=== PATIENT | male | born 1985 | race Caucasian/White ===

== ENCOUNTER 2016-08-21 01:11 | Emergency (ER) | payer BC, MEDICAID ==
[2016-08-21] MEDS ORDERED: NS 0.9% 1000 ML* 1,000 ML IV ONE (01:19)
[2016-08-21 01:49] LABS: Hematocrit 45 % (42-52); Hemoglobin 14.8 g/dl (14.0-18.0); Mean Corpuscular HGB Conc 33 g/dl (31-36); Mean Corpuscular Hemoglobin 30 pg (27-31); Mean Corpuscular Volume 92 fL (80-94); Mean Platelet Volume 9 um3 (7.4-10.4); Red Cell Distribution Width 14 % (10.5-15)
[2016-08-21 02:01] LABS: Albumin 4.2 g/dL (3.2-5.2); BUN/Creatinine Ratio 16.5 (8-20); Calcium 9.6 mg/dL (8.6-10.3); EGFR African American 137.1 (>60); EGFR Non-African American 106.6 (>60); Globulin 2.7 g/dL (2-4); Potassium 4.1 mmol/L (3.5-5.0); Total Bilirubin 0.2 mg/dL (0.2-1.0); Total Protein 6.9 g/dL (6.4-8.9)
[2016-08-21 02:10] LABS: Urine Bacteria 2+ (Absent); Urine Bilirubin Negative (Negative); Urine Glucose Negative (Negative); Urine Nitrite Positive (Negative)
[2016-08-21] MEDS ORDERED: cefTRIAXone VIAL(*) 1,000 MG in NS 0.9% 50 ML* 50 ML IVPB ONE (02:30)
--- NOTE | 2016-08-21 02:56 | ED ---
I, Rick,Jill, scribed for Vesta Canchola MD on 08/21/16 at 0126 . Neurological HPI - HPI Summary HPI Summary: LEVEL 5 CAVEAT secondary to MRJaz This 31 y/o male presents to ED from [facility] for acute on recurrent seizure tonight. This grand mal seizure was witnessed by staffs at snf. PMHx does include known seizure that is controlled by Keppra with the last episode a year ago. Pt appears to be at his baseline at time of initial evaluation. Other PMHx includes cerebral palsy, fundoplication, and neurogenic bladder with frequent UTIs. Mother present at bedside reports UTI last fall, and possible issues with current cath recently. - History of Current Complaint Stated Complaint: SEIZURE Time Seen by Provider: 08/21/16 01:12 Hx Obtained From: Family/Weld Engineer - mother present at bedside, EMS, Medical Records Hx From Patient Unobtainable Due To: Other - MR Onset/Duration: Sudden Onset, Resolved Timing: Intermittent Episodes Lasting: Onset Severity: Moderate Current Severity: None Seizure Severity: Self Limited Seizure Character: Total-Clonic Aggravating: Nothing Alleviating: Spontanious Resolution - Allergy/Home Medications Allergies/Adverse Reactions: Allergies Allergy/AdvReac Type Severity Reaction Status Date / Time Ciprofloxacin [From Cipro] Allergy ANAPHYLACTI Verified 08/21/16 02:28 C Clindamycin Allergy BODY RASH Verified 08/21/16 02:28 Sulfamethoxazole Allergy Rash And Verified 08/21/16 02:28 w/Trimethoprim Itching [From Bactrim] ENVIRONMENTAL/SEASONAL Allergy Unknown Uncoded 08/21/16 02:28 HAYFEVER Reaction Details PMH/Surg Hx/FS Hx/Imm Hx Endocrine/Hematology History: Denies: Hx Diabetes, Hx Thyroid Disease Cardiovascular History: Denies: Hx Congestive Heart Failure, Hx Hypertension Respiratory History: Reports: Hx Sleep Apnea - possible Denies: Hx Asthma, Hx Chronic Obstructive Pulmonary Disease (COPD) Comment Only: Other Respiratory Problems/Disorders - G-BUTTON FOR MEDICATIONS GI History: Reports: Hx Gastroesophageal Reflux Disease - gastric fundiplication at age 10 Denies: Hx Ulcer History: Reports: Other Problems/Disorders - frequent UTIs, neurogenic bladder Denies: Hx Renal Disease Sensory History: Denies: Hx Hearing Aid Neurological History: Reports: Hx Seizures - history of control with medication , Other Neuro Impairments/Disorders - NON-VERBAL, CP - Surgical History Surgery Procedure, Year, and Place: GASTROPLASTY AT AGE 10, [facility], ENT surgery Hx Anesthesia Reactions: Yes - PROBLEMS WITH POST OP PAIN AFTER TONSILLECTOMY AND FUNDIPLICATION Infectious Disease History: Denies: Hx Clostridium Difficile, Hx Hepatitis, Hx Human Immunodeficiency Virus (HIV), Hx of Known/Suspected MRSA, Hx Shingles, Hx Tuberculosis - Family History Known Family History: Positive: Unknown Family History: LEVEL 5 CAVEAT secondary to MRJaz - Social History Lives: Retirement Alcohol Use: None Hx Substance Use: No Substance Use Type: Reports: None Hx Tobacco Use: No Smoking Status (MU): Never Smoked Tobacco Review of Systems - ROS Summary Review of Systems Summary: LEVEL 5 CAVEAT secondary to Negative: Fever Negative: Anxious, Depressed All Other Systems Reviewed And Are Negative: No Physical Exam Triage Information Reviewed: Yes Vital Signs On Initial Exam: Initial Vitals Temp Pulse Resp BP Pulse Ox 98.9 F 81 16 132/82 95 08/21/16 01:15 08/21/16 01:15 08/21/16 01:15 08/21/16 01:15 08/21/16 01:15 Vital Signs Reviewed: Yes Appearance: Positive: Well-Appearing - Nontoxic looking, No Pain Distress Skin: Positive: Warm, Dry Head/Face: Positive: Normal Head/Face Inspection Eyes: Positive: FROY, Conjunctiva Clear Cardiovascular: Positive: RRR, Pulses are Symmetrical in both Upper and Lower Extremities Abdomen Description: Positive: Other: - G-tube in place Musculoskeletal: Positive: Strength/ROM Intact Neurological: Positive: Sensory/Motor Intact Psychiatric: Positive: Affect/Mood Appropriate AVPU Assessment: Alert Diagnostics - Vital Signs Vital Signs Temp Pulse Resp BP Pulse Ox 08/21/16 02:30 66 113/67 98 08/21/16 02:00 68 114/71 94 08/21/16 01:30 80 125/65 91 08/21/16 01:24 81 93 08/21/16 01:23 124/72 08/21/16 01:15 98.9 F 81 16 132/82 95 - Laboratory Lab Results: Lab Results 08/21/16 08/21/16 08/21/16 Range/Units 01:25 01:25 01:55 WBC 4.0 (3.5-10.8) 10^3/ul RBC 4.90 (4.0-5.4) 10^6/ul Hgb 14.8 (14.0-18.0) g/dl Hct 45 (42-52) % MCV 92 (80-94) fL MCH 30 (27-31) pg MCHC 33 (31-36) g/dl RDW 14 (10.5-15) % Plt Count 154 (150-450) 10^3/ul MPV 9 (7.4-10.4) um3 Neut % (Auto) 49.7 (38-83) % Lymph % (Auto) 39.4 (25-47) % [place] % (Auto) 8.1 (1-9) % Eos % (Auto) 2.7 (0-6) % Baso % (Auto) 0.1 (0-2) % Absolute Neuts (auto) 2.0 (1.5-7.7) 10^3/ul Absolute Lymphs (auto) 1.6 (1.0-4.8) 10^3/ul Absolute Monos (auto) 0.3 (0-0.8) 10^3/ul Absolute Eos (auto) 0.1 (0-0.6) 10^3/ul Absolute Basos (auto) 0 (0-0.2) 10^3/ul Absolute Nucleated RBC 0 10^3/ul Nucleated RBC % 0.1 Sodium 139 (133-145) mmol/L Potassium 4.1 (3.5-5.0) mmol/L Chloride 103 (101-111) mmol/L Carbon Dioxide 33 H (22-32) mmol/L Anion Gap 3 (2-11) mmol/L BUN 14 (6-24) mg/dL Creatinine 0.85 (0.67-1.17) mg/dL Est GFR ( Amer) 137.1 (>60) Est GFR (Non-Af Amer) 106.6 (>60) BUN/Creatinine Ratio 16.5 (8-20) Glucose 93 (70-100) mg/dL Calcium 9.6 (8.6-10.3) mg/dL Total Bilirubin 0.20 (0.2-1.0) mg/dL AST 18 (13-39) U/L ALT 22 (7-52) U/L Alkaline Phosphatase 70 (34-104) U/L Total Protein 6.9 (6.4-8.9) g/dL Albumin 4.2 (3.2-5.2) g/dL Globulin 2.7 (2-4) g/dL Albumin/Globulin Ratio 1.6 (1-3) Urine Color Yellow Urine Appearance Cloudy Urine pH 6.0 (5-9) Ur Specific [place] 1.020 (1.010-1.030) Urine Protein Negative (Negative) Urine Ketones Negative (Negative) Urine Blood Negative (Negative) Urine Nitrate Positive H (Negative) Urine Bilirubin Negative (Negative) Urine Urobilinogen Negative (Negative) Ur Leukocyte Esterase 3+ H (Negative) Urine WBC (Auto) 3+(>20/hpf) H (Absent) Urine RBC (Auto) Trace(0-2/hpf) (Absent) Urine Bacteria 2+ H (Absent) Urine Glucose Negative (Negative) Urine Ascorbic Acid * H (Negative) Result Diagrams: 08/21/16 01:25 08/21/16 01:25 Lab Statement: Any lab studies that have been ordered have been reviewed, and results considered in the medical decision making process. - Radiology CXR Radiology Interpretation Completed By: ED Physician - See EMR for reading Course/Dx - Course Assessment/Plan: This 31 y/o male presents to ED for one episode of witnessed grand mal seizure at snf. PMHx is significant for known seizure, but last episode was 1 year ago. Seizure has been well controlled with Keppra since then. PMHx also includes recurrent UTI with neurogenic bladder and cerebral palsy. Pt appears nontoxic at the time of initial evaluation. Bloodwork is wnl. UA indicates UTI with 3+ RBC, leuk, and 2+ bacteria. Pt's last urine micro was ecoli sensitive to ceftriaxone but not to ancef, ampicillin but to macrobid. Pt's mother is requesting a twice daily regimen at home so he will receive one dose of ceftriaxone here and macrobid at the pharmacy - Diagnoses Provider Diagnoses: Seizure, UTI (urinary tract infection) Discharge - Discharge Plan Condition: Stable Disposition: HOME Prescriptions: Nitrofurantoin Monohyd Macro [Macrobid] 100 mg PO BID #14 cap Patient Education Materials: Recurrent Seizures in Adults (ED) Referrals: Sal Nation MD [Primary Care Provider] - 2 Days The documentation as recorded by the scribe, Oh,Soohyun accurately reflects the service I personally performed and the decisions made by me, Vesta Canchola MD.
[2016-08-21] MEDS ORDERED: Nitrofurantoin Macrocrystals* 100 MG CAP PO ONE (03:11)
[2016-08-21 03:24] VITALS: BP 108/60
--- NOTE | 2016-08-21 07:43 | RAD ---
INDICATION: Seizure COMPARISON: Most recent comparison chest x-ray is dated May 06, 2016 TECHNIQUE: Single AP portable view of the chest was obtained. FINDINGS: Image quality is compromised due to the relative inferiority of a portable chest x-ray. The heart and mediastinum exhibit normal size and contour. The lungs are grossly clear. There is no evidence of a large pleural effusion. There are multiple loops of dilated air-filled small bowel beneath the diaphragm measuring up to 4 cm in diameter. This is similar but wraps slightly worse when compared to the most recent chest x-ray. IMPRESSION: 1. No radiographic evidence for acute cardiopulmonary abnormality on this portable chest x-ray. 2. Dilated loops of air-filled small bowel up to 4 cm in diameter.
--- NOTE | 2016-08-23 07:26 | ED ---
Progress - Progress Note Progress Note: Pt's urine cx reveals e. coli UTI - pt was d/c'd on nitrofurantoin which is appropriate - sens pending - no change in medication unless sens proves otherwise Course/Dx - Diagnoses Provider Diagnoses: Seizure, UTI (urinary tract infection)
--- NOTE | 2016-08-25 07:00 | PN ---
Progress Note - Progress Note Note: Urine grew E. coli. patient had been placed on Nitrofurantoin for 14 days. Med covers E. coli. Nothing further needed.
== END 2016-08-21 03:22 | disposition home or self-care (01) ==
LOC: ED 01:11
DX: N39.0 Urinary tract infection, site not specified (principal); R56.9 Unspecified convulsions
CPT/HCPCS: 36415; 71010; 80053; 80177; 81003; 81015; 85025; 87077; 87086; 87186; 99284; A9270-GY; J0696

== ENCOUNTER → 2016-12-22 02:35 | Emergency (ER) | payer BC, MEDICAID ==
[~2016-12-22 02:35] MED LIST: NS 0.9% 1000 ML* 1,000 ML IV ONE
[2016-12-22 03:10] LABS: Hematocrit 45 % (42-52); Hemoglobin 14.6 g/dl (14.0-18.0); Mean Corpuscular HGB Conc 33 g/dl (31-36); Mean Corpuscular Hemoglobin 30 pg (27-31); Mean Corpuscular Volume 92 fL (80-94); Mean Platelet Volume 9 um3 (7.4-10.4); Red Blood Count 4.87 10^6/ul (4.0-5.4); Red Cell Distribution Width 14 % (10.5-15); White Blood Count 4.7 10^3/ul (3.5-10.8)
[2016-12-22 03:26] LABS: BUN/Creatinine Ratio 18.1 (8-20); Calcium 9.2 mg/dL (8.6-10.3); EGFR African American 140.9 (>60); EGFR Non-African American 109.5 (>60); Globulin 2.7 g/dL (2-4); Magnesium 1.9 mg/dL (1.9-2.7); Total Bilirubin 0.3 mg/dL (0.2-1.0); Total Protein 6.7 g/dL (6.4-8.9)
[2016-12-22 04:43] LABS: Urine Bacteria Absent (Absent); Urine Bilirubin Negative (Negative); Urine Glucose Negative (Negative); Urine Nitrite Negative (Negative)
[2016-12-22 05:35] VITALS: BP 105/69
--- NOTE | 2016-12-22 05:39 | ED ---
Regla Espino Alok, scribed for Joe Granados MD on 12/22/16 at 0258 . Syncope/Near Syncope - HPI Summary HPI Summary: 31M presents to the ED following seizure-like episode. Pt was seizing for 7 to 10 minutes with body tremors and was not actively seizing when EMS arrived. Pt has h/o seizures and takes Keppra and Lamictal. Pt is non-verbal level 5 caveat. No tongue bites. Pt has a feeding tube. Pt uses a diaper. - History Of Current Complaint Chief Complaint: EDSeizure Time Seen by Provider: 12/22/16 02:47 Hx Obtained From: EMS Hx From Patient Unobtainable Due To: Other - MR Onset/Duration: Lasting Minutes, Resolved Timing: Minutes Context: Witnessed - Allergies/Home Medications Allergies/Adverse Reactions: Allergies Allergy/AdvReac Type Severity Reaction Status Date / Time Ciprofloxacin [From Cipro] Allergy ANAPHYLACTI Verified 08/21/16 02:28 C Clindamycin Allergy BODY RASH Verified 08/21/16 02:28 Sulfamethoxazole Allergy Rash And Verified 08/21/16 02:28 w/Trimethoprim Itching [From Bactrim] ENVIRONMENTAL/SEASONAL Allergy Unknown Uncoded 08/21/16 02:28 HAYFEVER Reaction Details PMH/Surg Hx/FS Hx/Imm Hx Endocrine/Hematology History: Denies: Hx Diabetes, Hx Thyroid Disease Cardiovascular History: Denies: Hx Congestive Heart Failure, Hx Hypertension Respiratory History: Reports: Hx Sleep Apnea - possible Denies: Hx Asthma, Hx Chronic Obstructive Pulmonary Disease (COPD) Comment Only: Other Respiratory Problems/Disorders - G-BUTTON FOR MEDICATIONS GI History: Reports: Hx Gastroesophageal Reflux Disease - gastric fundiplication at age 10 Denies: Hx Ulcer History: Reports: Other Problems/Disorders - frequent UTIs, neurogenic bladder Denies: Hx Renal Disease Sensory History: Denies: Hx Hearing Aid Neurological History: Reports: Hx Seizures - history of control with medication , Other Neuro Impairments/Disorders - NON-VERBAL, CP - Surgical History Surgery Procedure, Year, and Place: GASTROPLASTY AT AGE 10, [facility], ENT surgery Hx Anesthesia Reactions: Yes - PROBLEMS WITH POST OP PAIN AFTER TONSILLECTOMY AND FUNDIPLICATION Infectious Disease History: No Infectious Disease History: Denies: Hx Clostridium Difficile, Hx Hepatitis, Hx Human Immunodeficiency Virus (HIV), Hx of Known/Suspected MRSA, Hx Shingles, Hx Tuberculosis, Traveled Outside the [place] in Last 30 Days - Family History Known Family History: Positive: Unknown Family History: LEVEL 5 CAVEAT secondary to MR. - Social History Occupation: Disabled Alcohol Use: None Hx Substance Use: No Substance Use Type: Reports: None Hx Tobacco Use: No Smoking Status (MU): Never Smoked Tobacco Review of Systems - ROS Summary Review of Systems Summary: Level 5 caveat Negative: Nasal Discharge, Other - tongue bite Positive: Syncope All Other Systems Reviewed And Are Negative: No Physical Exam - Summary Physical Exam Summary: The skin is warm and dry and skin color reflects adequate perfusion. Good skin turgor. HEENT: The head is normocephalic and atraumatic. The pupils are equal and reactive. The conjunctivae are clear and without drainage. Nares are patent and without drainage. Mouth reveals moist mucous membranes and the throat is without erythema and exudate. Left ear distorted landmarks, ear drum markedly erythemic. Right TM normal with normal color.. No lip or tongue bite. No rhinorrhea. Neck is supple with full range of motion and non-tender. There are no carotid bruits. There is no neck vein distension. Respiratory: Chest is non-tender. Lungs are clear to auscultation and breath sounds are symmetrical and equal. Cardiovascular: Hear is regular rate and rhythm. There is no murmur or rub auscultated. There is no peripheral edema and pulses are symmetrical and equal. Abdomen: The abdomen is soft and non-tender. There are normal bowel sounds heard in all four quadrants and there is no organomegaly palpated. Feeding tube in place Musculoskeletal: Extremities are non-tender with full range of motion. There is good capillary refill. There is no peripheral edema or calf tenderness elicited. Neurologial: Patient is non-verbal and not oriented. Triage Information Reviewed: Yes Vital Signs On Initial Exam: Initial Vitals Temp Pulse Resp BP Pulse Ox 98.5 F 118 20 139/78 100 12/22/16 02:36 12/22/16 02:36 12/22/16 02:36 12/22/16 02:36 12/22/16 02:36 Vital Signs Reviewed: Yes Completion Of Physical Exam Limited Due To: Level 5 Diagnostics - Vital Signs Vital Signs Temp Pulse Resp BP Pulse Ox 12/22/16 02:36 98.5 F 118 20 139/78 100 - Laboratory Lab Results: Lab Results 12/22/16 12/22/16 12/22/16 Range/Units 03:01 03:01 03:01 WBC 4.7 (3.5-10.8) 10^3/ul RBC 4.87 (4.0-5.4) 10^6/ul Hgb 14.6 (14.0-18.0) g/dl Hct 45 (42-52) % MCV 92 (80-94) fL MCH 30 (27-31) pg MCHC 33 (31-36) g/dl RDW 14 (10.5-15) % Plt Count 154 (150-450) 10^3/ul MPV 9 (7.4-10.4) um3 Neut % (Auto) 52.7 (38-83) % Lymph % (Auto) 38.4 (25-47) % [place] % (Auto) 6.6 (1-9) % Eos % (Auto) 2.1 (0-6) % Baso % (Auto) 0.2 (0-2) % Absolute Neuts (auto) 2.5 (1.5-7.7) 10^3/ul Absolute Lymphs (auto) 1.8 (1.0-4.8) 10^3/ul Absolute Monos (auto) 0.3 (0-0.8) 10^3/ul Absolute Eos (auto) 0.1 (0-0.6) 10^3/ul Absolute Basos (auto) 0 (0-0.2) 10^3/ul Absolute Nucleated RBC 0 10^3/ul Nucleated RBC % 0.1 INR (Anticoag Therapy) 1.06 (0.89-1.11) Sodium 138 (133-145) mmol/L Potassium 4.0 (3.5-5.0) mmol/L Chloride 102 (101-111) mmol/L Carbon Dioxide 31 (22-32) mmol/L Anion Gap 5 (2-11) mmol/L BUN 15 (6-24) mg/dL Creatinine 0.83 (0.67-1.17) mg/dL Est GFR ( Amer) 140.9 (>60) Est GFR (Non-Af Amer) 109.5 (>60) BUN/Creatinine Ratio 18.1 (8-20) Glucose 85 (70-100) mg/dL Lactic Acid (0.5-2.0) mmol/L Calcium 9.2 (8.6-10.3) mg/dL Magnesium 1.9 (1.9-2.7) mg/dL Total Bilirubin 0.30 (0.2-1.0) mg/dL AST 30 (13-39) U/L ALT 45 (7-52) U/L Alkaline Phosphatase 82 (34-104) U/L Total Protein 6.7 (6.4-8.9) g/dL Albumin 4.0 (3.2-5.2) g/dL Globulin 2.7 (2-4) g/dL Albumin/Globulin Ratio 1.5 (1-3) Urine Color Urine Appearance Urine pH (5-9) Ur Specific [place] (1.010-1.030) Urine Protein (Negative) Urine Ketones (Negative) Urine Blood (Negative) Urine Nitrate (Negative) Urine Bilirubin (Negative) Urine Urobilinogen (Negative) Ur Leukocyte Esterase (Negative) Urine WBC (Auto) (Absent) Urine RBC (Auto) (Absent) Ur Squamous Epith Cells (Absent) Amorphous Crystals (Absent) Urine Bacteria (Absent) Urine Glucose (Negative) Urine Ascorbic Acid (Negative) 12/22/16 12/22/16 Range/Units 03:01 04:26 WBC (3.5-10.8) 10^3/ul RBC (4.0-5.4) 10^6/ul Hgb (14.0-18.0) g/dl Hct (42-52) % MCV (80-94) fL MCH (27-31) pg MCHC (31-36) g/dl RDW (10.5-15) % Plt Count (150-450) 10^3/ul MPV (7.4-10.4) um3 Neut % (Auto) (38-83) % Lymph % (Auto) (25-47) % [place] % (Auto) (1-9) % Eos % (Auto) (0-6) % Baso % (Auto) (0-2) % Absolute Neuts (auto) (1.5-7.7) 10^3/ul Absolute Lymphs (auto) (1.0-4.8) 10^3/ul Absolute Monos (auto) (0-0.8) 10^3/ul Absolute Eos (auto) (0-0.6) 10^3/ul Absolute Basos (auto) (0-0.2) 10^3/ul Absolute Nucleated RBC 10^3/ul Nucleated RBC % INR (Anticoag Therapy) (0.89-1.11) Sodium (133-145) mmol/L Potassium (3.5-5.0) mmol/L Chloride (101-111) mmol/L Carbon Dioxide (22-32) mmol/L Anion Gap (2-11) mmol/L BUN (6-24) mg/dL Creatinine (0.67-1.17) mg/dL Est GFR ( Amer) (>60) Est GFR (Non-Af Amer) (>60) BUN/Creatinine Ratio (8-20) Glucose (70-100) mg/dL Lactic Acid 1.4 (0.5-2.0) mmol/L Calcium (8.6-10.3) mg/dL Magnesium (1.9-2.7) mg/dL Total Bilirubin (0.2-1.0) mg/dL AST (13-39) U/L ALT (7-52) U/L Alkaline Phosphatase (34-104) U/L Total Protein (6.4-8.9) g/dL Albumin (3.2-5.2) g/dL Globulin (2-4) g/dL Albumin/Globulin Ratio (1-3) Urine Color Yellow Urine Appearance Cloudy Urine pH 7.0 (5-9) Ur Specific [place] 1.018 (1.010-1.030) Urine Protein Negative (Negative) Urine Ketones Negative (Negative) Urine Blood Negative (Negative) Urine Nitrate Negative (Negative) Urine Bilirubin Negative (Negative) Urine Urobilinogen Negative (Negative) Ur Leukocyte Esterase Trace H (Negative) Urine WBC (Auto) 1+(6-10/hpf) H (Absent) Urine RBC (Auto) Trace(0-2/hpf) (Absent) Ur Squamous Epith Cells Present H (Absent) Amorphous Crystals Present H (Absent) Urine Bacteria Absent (Absent) Urine Glucose Negative (Negative) Urine Ascorbic Acid * H (Negative) Result Diagrams: 12/22/16 03:01 12/22/16 03:01 Lab Statement: Any lab studies that have been ordered have been reviewed, and results considered in the medical decision making process. Re-Evaluation - Re-Evaluation First Eval Re-Evaluation Time: 04:54 Change: Improved Comment: left ear TM no longer red. right ear TM unable to visualize due to ear wax. Course/Dx Course Of Treatment: Pt presented for seizure event with h/o seizure disorder. Will discharge home with FU to PCP and neurology. - Diagnoses Differential Diagnosis/HQI/PQRI: Positive: Metabolic Reaction, Seizure, Other - uti, otitis media Provider Diagnoses: Seizure disorder Discharge - Discharge Plan Condition: Stable Disposition: HOME Patient Education Materials: Recurrent Seizures in Adults (ED) Referrals: Sal Nation MD [Primary Care Provider] - Faustina Sloan MD [Medical Doctor] - Additional Instructions: Please follow up with doctors Nathalia and Rios The documentation as recorded by the Regla vickers Alok accurately reflects the service I personally performed and the decisions made by me, Joe Granados MD.
[2016-12-24 13:42] LABS: Lamotrigine 2.6 mcg/mL (2.5 - 15.0)
[2016-12-24 16:03] LABS: Levetiracetam 38.3 mcg/mL
== END | disposition home or self-care (01) ==
LOC: ED 02:35
DX: G40.909 Epilepsy, unspecified, not intractable, without status epilepticus (principal); R55 Syncope and collapse
CPT/HCPCS: 36415; 80053; 80175; 80177; 81003; 81015; 83605; 83735; 85025; 85610; 87086; 99283

== ENCOUNTER 2016-12-22 22:48 | Observation (INO) | payer BC, MEDICAID ==
[2016-12-22] MEDS ORDERED: Acetaminophen TAB* 325 MG ONE (23:33)
[2016-12-22 23:35] LABS: Hematocrit 41 % (42-52); Hemoglobin 13.6 g/dl (14.0-18.0); Mean Corpuscular HGB Conc 34 g/dl (31-36); Mean Corpuscular Hemoglobin 30 pg (27-31); Mean Corpuscular Volume 90 fL (80-94); Mean Platelet Volume 9 um3 (7.4-10.4); Red Blood Count 4.48 10^6/ul (4.0-5.4); Red Cell Distribution Width 15 % (10.5-15); White Blood Count 8.7 10^3/ul (3.5-10.8)
[2016-12-22 23:53] LABS: Albumin 3.9 g/dL (3.2-5.2); Calcium 9.2 mg/dL (8.6-10.3); EGFR African American 153.6 (>60); EGFR Non-African American 119.4 (>60); Globulin 2.8 g/dL (2-4); Potassium 3.5 mmol/L (3.5-5.0); Total Bilirubin 0.4 mg/dL (0.2-1.0); Total Protein 6.7 g/dL (6.4-8.9)
[2016-12-23] MEDS: NS 0.9% 1000 ML* 3,000 ML IV ONE ×2 (00:26→02:33)
[2016-12-23 01:09] LABS: Urine Bacteria Absent (Absent); Urine Bilirubin Negative (Negative); Urine Glucose Negative (Negative); Urine Nitrite Negative (Negative)
[2016-12-23] MEDS ORDERED: Acetaminophen TAB* 325 MG PO PRN (01:50)
[2016-12-23] MEDS ORDERED: Ondansetron INJ* 2 MG/ML VIAL IV PRN (01:50)
--- NOTE | 2016-12-23 01:52 | HP ---
H&P (Free Text) History and Physical: PCP: Temo Nation MD Date/Time of Evaluation: 12/23/2016 0105 CC: seizure exacerbation HPI: Mr Diaz is a 31YO male [place] resident HX cerebral palsy & seizure disorders whose seizures have been increasing in frequency over the past 5 months. Prior to Aug 2016 he had been seizure free for ~2 years, but had 1 in Aug, 2 in September, and now 2 within the last 24H associated with fever, cyanosis, & hypoxia. His appetite has been decreased for the past couple of days as well per his [place] aide. He was seen at [facility] ED last night for that seizure, but was afebrile w/ baseline labs and was discharged to return tonight with a seizure lasting ~20minutes. His temperature on arrival was 100.5F. Jasmin Minor MD neurology was consulted by ED via phone. Rodrigo Diaz MD oncology, Mr Diaz's father was present in the ED providing his history. Previously he has had recurrent UTIs determined to be 2nd neurogenic bladder with retention of up to 1L currently successfully managed by QID strait caths. As we will be giving him increased IVFs, we will bladder scan him frequently in addition to his routine straight caths. PMedHx cerebral palsy seizure disorder GERD Ambulatory Orders Nursing to reconcile. Acetaminophen 325 mg G TUBE Q4HR PRN 09/01/12 Adapalene 0.1 % TOPICAL BEDTIME PRN 09/01/12 Allergy Shots 1 INJ PRN 09/01/12 Ascorbic Acid [Vitamin C] 500 mg G TUBE QPM 09/01/12 Bisacodyl [Biscolax] 10 mg ID PRN 09/01/12 Clotrimazole 1% CREAM* [Clotrimazole 1%*] 1 applic TOPICAL PRN 09/01/12 Dapsone (Topical) [Aczone] 1 applic TOPICAL QAM 09/01/12 Dermatological Products, Misc. [New Skin] 1 applic TOPICAL PRN 09/01/12 Epinephrine [Epipen] 0.3 mg IJ PRN 09/01/12 Fexofenadine HCl 180 mg G TUBE QAM 09/01/12 Glycerin (Laxative) [Fleet Liquid Glycerin Sup] 5.6 gm ID PRN 09/01/12 Hydrocortisone 1% CREAM* [Hytone (Topical) 1%*] 1 applic TOPICAL PRN 09/01/12 Ibuprofen PED LIQ* [Motrin LIQ*] 20 ml G TUBE Q6HR PRN 09/01/12 Lamotrigine 100 mg G TUBE QPM 09/01/12 Levetiracetam 1,500 mg G TUBE BID 09/01/12 Montelukast Sodium 10 mg G TUBE DAILY 09/01/12 Multiple Vitamins W/ Minerals [Centrum] 1 tab G TUBE QAM 09/01/12 Neomycin-Bacitracin Zn-Polymyx [Triple Antibiotic] 1 oin TOPICAL PRN 09/01/12 Nystatin OINT* [Nystatin Oint] 1 applic TOPICAL PRN 09/01/12 Polyethylene Glycol 3350 1 pow G TUBE QAM 09/01/12 Ranitidine LIQ 10 ML(NF) [Zantac Liq*] 10 ml G TUBE DAILY 09/01/12 Sodium Phosphates [Enema Dobty-Uf-Ixm] 1 raudel ID PRN 09/01/12 Erythromycin (Acne Aid) [Erythromycin] 2 % EX DAILY 07/15/13 Alfuzosin ER (NF) [Uroxatral (NF)] 10/16/14 Alfuzosin ER (NF) [Uroxatral (NF)] 10 mg PO DAILY 10/16/14 Mouthwashes [Biotene Dry Mouth Mouthwa] 1 liq MT 10/16/14 Xpnlsont-Rhxgfvrzjk-Qbjesnrte [Triple Antibiotic] 10/16/14 Phenazopyridine HCl [Pyridium] 200 mg PO Q8HR 10/16/14 Tobramycin/Dexameth OPTH.SUSP* 5 drop RIGHT EAR BID PRN 10/16/14 Ampicillin SUSP* [Ampicillin Susp*] 250 mg PO QID #140 ml 05/06/16 Ampicillin SUSP* [Ampicillin Susp*] 250 mg PO QID #7 gm 05/06/16 Nitrofurantoin Monohyd Macro [Macrobid] 100 mg PO BID #14 cap 08/21/16 Allergies Ciprofloxacin [From Cipro] Allergy (Verified 08/21/16 02:28) ANAPHYLACTIC Clindamycin Allergy (Verified 08/21/16 02:28) BODY RASH Sulfamethoxazole w/Trimethoprim [From Bactrim] Allergy (Verified 08/21/16 02:28) Rash And Itching ENVIRONMENTAL/SEASONAL HAYFEVER Allergy (Uncoded 08/21/16 02:28) Unknown Reaction Details DUST, DUST MITES, POLLEN, MOLDS PSurgHx tympanostomy tubes tonsillectomy Hay fundoplication PEG placement for meds & supplementation SocHx: no tobacco, alcohol, or recreational drug HX; resides at the [facility]; Orthodoxy, mechanical soft kosher diet; family involved & supportive; full code status FamHx: negative ROS: as above, otherwise reviewed and all were negative Constitutional: NAD, normally developed, well-nourished white male vitals: Vital Signs Temp 38.0 C 12/22/16 22:54 Pulse 73 12/23/16 00:35 Resp 13 12/23/16 00:35 BP 110/64 12/23/16 00:35 Pulse Ox 97 12/23/16 00:50 Intake & Output 12/22/16 12/22/16 12/23/16 11:59 23:59 11:59 Weight 72.121 kg HEENM: atraumatic; sclera/conjunctiva: non-icteric/clear; hearing: unable to adequately assess; oropharynx: prominent protuberant glossus, mucosa moist Neck: soft tissue: no nuchal rigidity; thyroid: normal Pulmonary: clear to auscultation bilaterally, good aeration, no accessory muscle use CV: RR/RR, normal S1S2, no carotid bruit, no jugular venous distention, 2+ B DP/ PT, no edema Abdominal: soft, non-distended, non-tender, no rebound/guarding/rigidity, normoactive bowel sounds, no hepatosplenomegaly or masses, no costovertebral angle tenderness Musculoskeletal: general: grossly intact; gait: non-ambulatory at baseline Integumental: normal appearance and texture of exposed skin Psychiatric orientation: AA & disoriented affect: calm mood: cooperative eye contact: poor content: non-verbal responses: unable to make needs known insight: poor Testing: Lab Results 12/22/16 12/22/16 12/22/16 Range/Units 23:25 23:25 23:25 WBC 8.7 (3.5-10.8) 10^3/ul RBC 4.48 (4.0-5.4) 10^6/ul Hgb 13.6 L (14.0-18.0) g/dl Hct 41 L (42-52) % MCV 90 (80-94) fL MCH 30 (27-31) pg MCHC 34 (31-36) g/dl RDW 15 (10.5-15) % Plt Count 155 (150-450) 10^3/ul MPV 9 (7.4-10.4) um3 Neut % (Auto) 78.2 (38-83) % Lymph % (Auto) 15.3 L (25-47) % [place] % (Auto) 6.3 (1-9) % Eos % (Auto) 0.1 (0-6) % Baso % (Auto) 0.1 (0-2) % Absolute Neuts (auto) 6.8 (1.5-7.7) 10^3/ul Absolute Lymphs (auto) 1.3 (1.0-4.8) 10^3/ul Absolute Monos (auto) 0.6 (0-0.8) 10^3/ul Absolute Eos (auto) 0 (0-0.6) 10^3/ul Absolute Basos (auto) 0 (0-0.2) 10^3/ul Absolute Nucleated RBC 0 10^3/ul Nucleated RBC % 0 INR (Anticoag Therapy) 1.14 H (0.89-1.11) APTT 32.3 (26.0-36.3) seconds Sodium 136 (133-145) mmol/L Potassium 3.5 (3.5-5.0) mmol/L Chloride 101 (101-111) mmol/L Carbon Dioxide 30 (22-32) mmol/L Anion Gap 5 (2-11) mmol/L BUN 10 (6-24) mg/dL Creatinine 0.77 (0.67-1.17) mg/dL Est GFR ( Amer) 153.6 (>60) Est GFR (Non-Af Amer) 119.4 (>60) BUN/Creatinine Ratio 13.0 (8-20) Glucose 117 H (70-100) mg/dL Lactic Acid (0.5-2.0) mmol/L Calcium 9.2 (8.6-10.3) mg/dL Total Bilirubin 0.40 (0.2-1.0) mg/dL AST 29 (13-39) U/L ALT 42 (7-52) U/L Alkaline Phosphatase 80 (34-104) U/L Total Protein 6.7 (6.4-8.9) g/dL Albumin 3.9 (3.2-5.2) g/dL Globulin 2.8 (2-4) g/dL Albumin/Globulin Ratio 1.4 (1-3) Urine Color Urine Appearance Urine pH (5-9) Ur Specific [place] (1.010-1.030) Urine Protein (Negative) Urine Ketones (Negative) Urine Blood (Negative) Urine Nitrate (Negative) Urine Bilirubin (Negative) Urine Urobilinogen (Negative) Ur Leukocyte Esterase (Negative) Urine WBC (Auto) (Absent) Urine RBC (Auto) (Absent) Ur Squamous Epith Cells (Absent) Urine Bacteria (Absent) Urine Glucose (Negative) Urine Ascorbic Acid (Negative) 12/22/16 12/23/16 Range/Units 23:25 00:45 WBC (3.5-10.8) 10^3/ul RBC (4.0-5.4) 10^6/ul Hgb (14.0-18.0) g/dl Hct (42-52) % MCV (80-94) fL MCH (27-31) pg MCHC (31-36) g/dl RDW (10.5-15) % Plt Count (150-450) 10^3/ul MPV (7.4-10.4) um3 Neut % (Auto) (38-83) % Lymph % (Auto) (25-47) % [place] % (Auto) (1-9) % Eos % (Auto) (0-6) % Baso % (Auto) (0-2) % Absolute Neuts (auto) (1.5-7.7) 10^3/ul Absolute Lymphs (auto) (1.0-4.8) 10^3/ul Absolute Monos (auto) (0-0.8) 10^3/ul Absolute Eos (auto) (0-0.6) 10^3/ul Absolute Basos (auto) (0-0.2) 10^3/ul Absolute Nucleated RBC 10^3/ul Nucleated RBC % INR (Anticoag Therapy) (0.89-1.11) APTT (26.0-36.3) seconds Sodium (133-145) mmol/L Potassium (3.5-5.0) mmol/L Chloride (101-111) mmol/L Carbon Dioxide (22-32) mmol/L Anion Gap (2-11) mmol/L BUN (6-24) mg/dL Creatinine (0.67-1.17) mg/dL Est GFR ( Amer) (>60) Est GFR (Non-Af Amer) (>60) BUN/Creatinine Ratio (8-20) Glucose (70-100) mg/dL Lactic Acid 1.8 (0.5-2.0) mmol/L Calcium (8.6-10.3) mg/dL Total Bilirubin (0.2-1.0) mg/dL AST (13-39) U/L ALT (7-52) U/L Alkaline Phosphatase (34-104) U/L Total Protein (6.4-8.9) g/dL Albumin (3.2-5.2) g/dL Globulin (2-4) g/dL Albumin/Globulin Ratio (1-3) Urine Color Yellow Urine Appearance Cloudy Urine pH 6.0 (5-9) Ur Specific [place] 1.010 (1.010-1.030) Urine Protein Negative (Negative) Urine Ketones Negative (Negative) Urine Blood Negative (Negative) Urine Nitrate Negative (Negative) Urine Bilirubin Negative (Negative) Urine Urobilinogen Negative (Negative) Ur Leukocyte Esterase 1+ H (Negative) Urine WBC (Auto) 1+(6-10/hpf) H (Absent) Urine RBC (Auto) Trace(0-2/hpf) (Absent) Ur Squamous Epith Cells Present H (Absent) Urine Bacteria Absent (Absent) Urine Glucose Negative (Negative) Urine Ascorbic Acid * H (Negative) ECG, personally reviewed: NSR rate 84, no ischemia CXR, personally reviewed: question of lingular/LLL infiltrate Impression: 31M HX cerebral palsy & seizure disorder presenting with 2 seizures w/i 24H now with a doubling of his WBC from 4k to 8k, fever of 100.5F, & ? of lingular infiltrate on CXR DIAGNOSIS & PLAN Primary exacerbation of seizure disorder likely 2nd infection : continue levetiracetam & lamotrigine : seizure precautions : Jasmin Minor MD neurology consulted by ED, will follow lingular pneumonia : IV ceftriaxone & azithromycin : IVFs : blood, sputum, & urine CXs : supplemental oxygen : check urine Legionella & S pneumo antigens : supportive care Secondary HX urinary retention w/ neurogenic bladder : QID straight caths & Q4H bladder scans while awake GERD : omeprazole Admission Rational: observation for seizure exacerbation suspected 2nd lingular pneumonia DVTp: JACLYN Code Status: full HCP: Father: Rodrigo Diaz MD c: [phone] h: [phone]
[2016-12-23] MEDS ORDERED: NS 0.9% 1000 ML* 1,000 ML IV SCH (02:00)
[2016-12-23] MEDS ORDERED: Azithromycin IV(*) 500 MG in NS 0.9% 250 ML* 250 ML IVPB SCH (03:00)
--- NOTE | 2016-12-23 03:57 | ED ---
Annel Espino Rebecca, scribed for Joe Granados MD on 12/22/16 at 2328 . Neurological HPI - HPI Summary HPI Summary: Pt is a 31 y/o M BIBA who presents to ED s/p a series of seizures tonight. Staff worker states that seizures began at approximately 2140 and lasted for about 22 minutes. Staff believes he experienced at least 6 grand mal seizures in the span of time. Sx aggravated by nothing, alleviated by spontaneous resolution. Additionally note fever. Denies cough. Staff worker notes that he did not eat much of his dinner and refused to drink. Pt did not receive any medications by EMS en route. PMHx UTIs and seizures. Staff reports he has been medication compliant. Level 5 caveat due to MR. - History of Current Complaint Chief Complaint: EDSeizure Stated Complaint: SEIZURES Time Seen by Provider: 12/22/16 23:01 Hx Obtained From: Family/Roller Staker Hx From Patient Unobtainable Due To: Other - MR Onset/Duration: Sudden Onset, Resolved Timing: Intermittent Episodes Lasting: Current Severity: None Number of Seizures: 6 Pain Intensity: 0 Pain Scale Used: 0-10 Numeric Seizure Character: Generalized - Grand mal Aggravating: Nothing Alleviating: Spontanious Resolution Associated Signs and Symptoms: Positive: Seizure - 6 grand mal seizures, Fever - Allergy/Home Medications Allergies/Adverse Reactions: Allergies Allergy/AdvReac Type Severity Reaction Status Date / Time Ciprofloxacin [From Cipro] Allergy ANAPHYLACTI Verified 08/21/16 02:28 C Clindamycin Allergy BODY RASH Verified 08/21/16 02:28 Sulfamethoxazole Allergy Rash And Verified 08/21/16 02:28 w/Trimethoprim Itching [From Bactrim] ENVIRONMENTAL/SEASONAL Allergy Unknown Uncoded 08/21/16 02:28 HAYFEVER Reaction Details Home Medications: Home Medications Aquaphor OINT* 1 apply TOPICAL BEDTIME 12/23/16 [History Confirmed 12/23/16] Benzoyl Peroxide [Benzoyl Peroxide Wash] 1 apply TOPICAL DAILY 12/23/16 [ History Confirmed 12/23/16] Clindamycin/Benzoyl Perox 1.2-5 % 1 apply TOPICAL DAILY 12/23/16 [History Confirmed 12/23/16] Dermatological Products, Misc. [New Skin] 1 apply TOPICAL BID PRN 12/23/16 [ History Confirmed 12/23/16] Multiple Vitamins W/ Minerals [Centrum Silver 50+Men] 1 tab G TUBE DAILY [History Confirmed 12/23/16] Nutritional Supplements [Resource 2.0] 1 can G TUBE DAILY 12/23/16 [History Confirmed 12/23/16] Sf 5000 Plus 1.1 % PO DAILY 12/23/16 [History Confirmed 12/23/16] Sodium Phosphate ADULT ENEMA* [Fleet Enema*] 1 bottle OR PRN 12/23/16 [History] PMH/Surg Hx/FS Hx/Imm Hx Endocrine/Hematology History: Denies: Hx Diabetes, Hx Thyroid Disease Cardiovascular History: Denies: Hx Congestive Heart Failure, Hx Hypertension Respiratory History: Reports: Hx Sleep Apnea - possible Denies: Hx Asthma, Hx Chronic Obstructive Pulmonary Disease (COPD) Comment Only: Other Respiratory Problems/Disorders - G-BUTTON FOR MEDICATIONS GI History: Reports: Hx Gastroesophageal Reflux Disease - gastric fundiplication at age 10 Denies: Hx Ulcer History: Reports: Other Problems/Disorders - frequent UTIs, neurogenic bladder Denies: Hx Renal Disease Sensory History: Denies: Hx Hearing Aid Neurological History: Reports: Hx Seizures - history of control with medication , Other Neuro Impairments/Disorders - NON-VERBAL, CP - Surgical History Surgery Procedure, Year, and Place: GASTROPLASTY AT AGE 10, [facility], ENT surgery Hx Anesthesia Reactions: Yes - PROBLEMS WITH POST OP PAIN AFTER TONSILLECTOMY AND FUNDIPLICATION Infectious Disease History: No Infectious Disease History: Denies: Hx Clostridium Difficile, Hx Hepatitis, Hx Human Immunodeficiency Virus (HIV), Hx of Known/Suspected MRSA, Hx Shingles, Hx Tuberculosis, Traveled Outside the [place] in Last 30 Days - Family History Known Family History: Positive: Unknown Family History: LEVEL 5 CAVEAT secondary to MR. - Social History Alcohol Use: None Hx Substance Use: No Substance Use Type: Reports: None Hx Tobacco Use: No Smoking Status (MU): Never Smoked Tobacco Review of Systems - ROS Summary Review of Systems Summary: Level 5 caveat due to MRJaz Positive: Fever Negative: Cough Neurological: Other - presents s/p 6 seizures All Other Systems Reviewed And Are Negative: No Physical Exam - Summary Physical Exam Summary: The patient is well-nourished in no acute distress and in no acute pain. The skin is flushed and warm to touch. No rashes observed. Decreased skin turgor. HEENT: The head is normocephalic and atraumatic. The pupils are equal and reactive. The conjunctivae are clear and without drainage. Nares are patent and without drainage. Mouth reveals dry mucous membranes and the throat is without erythema and exudate. The external ears are intact. The ear canals are patent and without drainage. The L Tmis normal, the R TM has some erythema. Respiratory: Chest is non-tender. Lungs are clear to auscultation and breath sounds are symmetrical and equal. Cardiovascular: Hear is tachycardic in regular rhythm. There is no murmur or rub auscultated. There is no peripheral edema and pulses are symmetrical and equal. Abdomen: The abdomen is soft and non-tender. Musculoskeletal: There is no back pain noted. Extremities are non-tender with full range of motion. There is good capillary refill of 2 seconds. Neurological: The patient has symmetrical motor strength in all four extremities. Cranial nerves are grossly intact. Psych: Pt is nonverbal and does not follow commands. s Triage Information Reviewed: Yes Vital Signs On Initial Exam: Initial Vitals Temp Pulse Resp BP Pulse Ox 100.4 F 108 16 94/56 96 12/22/16 22:54 12/22/16 22:54 12/22/16 22:54 12/22/16 22:54 12/22/16 22:54 Vital Signs Reviewed: Yes Diagnostics - Vital Signs Vital Signs Temp Pulse Resp BP Pulse Ox 12/22/16 22:54 100.4 F 108 16 94/56 96 - Laboratory Lab Results: Lab Results 12/22/16 12/22/16 12/22/16 Range/Units 23:25 23:25 23:25 WBC 8.7 (3.5-10.8) 10^3/ul RBC 4.48 (4.0-5.4) 10^6/ul Hgb 13.6 L (14.0-18.0) g/dl Hct 41 L (42-52) % MCV 90 (80-94) fL MCH 30 (27-31) pg MCHC 34 (31-36) g/dl RDW 15 (10.5-15) % Plt Count 155 (150-450) 10^3/ul MPV 9 (7.4-10.4) um3 Neut % (Auto) 78.2 (38-83) % Lymph % (Auto) 15.3 L (25-47) % [place] % (Auto) 6.3 (1-9) % Eos % (Auto) 0.1 (0-6) % Baso % (Auto) 0.1 (0-2) % Absolute Neuts (auto) 6.8 (1.5-7.7) 10^3/ul Absolute Lymphs (auto) 1.3 (1.0-4.8) 10^3/ul Absolute Monos (auto) 0.6 (0-0.8) 10^3/ul Absolute Eos (auto) 0 (0-0.6) 10^3/ul Absolute Basos (auto) 0 (0-0.2) 10^3/ul Absolute Nucleated RBC 0 10^3/ul Nucleated RBC % 0 INR (Anticoag Therapy) 1.14 H (0.89-1.11) APTT 32.3 (26.0-36.3) seconds Sodium 136 (133-145) mmol/L Potassium 3.5 (3.5-5.0) mmol/L Chloride 101 (101-111) mmol/L Carbon Dioxide 30 (22-32) mmol/L Anion Gap 5 (2-11) mmol/L BUN 10 (6-24) mg/dL Creatinine 0.77 (0.67-1.17) mg/dL Est GFR ( Amer) 153.6 (>60) Est GFR (Non-Af Amer) 119.4 (>60) BUN/Creatinine Ratio 13.0 (8-20) Glucose 117 H (70-100) mg/dL Lactic Acid (0.5-2.0) mmol/L Calcium 9.2 (8.6-10.3) mg/dL Total Bilirubin 0.40 (0.2-1.0) mg/dL AST 29 (13-39) U/L ALT 42 (7-52) U/L Alkaline Phosphatase 80 (34-104) U/L Total Protein 6.7 (6.4-8.9) g/dL Albumin 3.9 (3.2-5.2) g/dL Globulin 2.8 (2-4) g/dL Albumin/Globulin Ratio 1.4 (1-3) Urine Color Urine Appearance Urine pH (5-9) Ur Specific [place] (1.010-1.030) Urine Protein (Negative) Urine Ketones (Negative) Urine Blood (Negative) Urine Nitrate (Negative) Urine Bilirubin (Negative) Urine Urobilinogen (Negative) Ur Leukocyte Esterase (Negative) Urine WBC (Auto) (Absent) Urine RBC (Auto) (Absent) Ur Squamous Epith Cells (Absent) Urine Bacteria (Absent) Urine Glucose (Negative) Urine Ascorbic Acid (Negative) 12/22/16 12/23/16 Range/Units 23:25 00:45 WBC (3.5-10.8) 10^3/ul RBC (4.0-5.4) 10^6/ul Hgb (14.0-18.0) g/dl Hct (42-52) % MCV (80-94) fL MCH (27-31) pg MCHC (31-36) g/dl RDW (10.5-15) % Plt Count (150-450) 10^3/ul MPV (7.4-10.4) um3 Neut % (Auto) (38-83) % Lymph % (Auto) (25-47) % [place] % (Auto) (1-9) % Eos % (Auto) (0-6) % Baso % (Auto) (0-2) % Absolute Neuts (auto) (1.5-7.7) 10^3/ul Absolute Lymphs (auto) (1.0-4.8) 10^3/ul Absolute Monos (auto) (0-0.8) 10^3/ul Absolute Eos (auto) (0-0.6) 10^3/ul Absolute Basos (auto) (0-0.2) 10^3/ul Absolute Nucleated RBC 10^3/ul Nucleated RBC % INR (Anticoag Therapy) (0.89-1.11) APTT (26.0-36.3) seconds Sodium (133-145) mmol/L Potassium (3.5-5.0) mmol/L Chloride (101-111) mmol/L Carbon Dioxide (22-32) mmol/L Anion Gap (2-11) mmol/L BUN (6-24) mg/dL Creatinine (0.67-1.17) mg/dL Est GFR ( Amer) (>60) Est GFR (Non-Af Amer) (>60) BUN/Creatinine Ratio (8-20) Glucose (70-100) mg/dL Lactic Acid 1.8 (0.5-2.0) mmol/L Calcium (8.6-10.3) mg/dL Total Bilirubin (0.2-1.0) mg/dL AST (13-39) U/L ALT (7-52) U/L Alkaline Phosphatase (34-104) U/L Total Protein (6.4-8.9) g/dL Albumin (3.2-5.2) g/dL Globulin (2-4) g/dL Albumin/Globulin Ratio (1-3) Urine Color Yellow Urine Appearance Cloudy Urine pH 6.0 (5-9) Ur Specific [place] 1.010 (1.010-1.030) Urine Protein Negative (Negative) Urine Ketones Negative (Negative) Urine Blood Negative (Negative) Urine Nitrate Negative (Negative) Urine Bilirubin Negative (Negative) Urine Urobilinogen Negative (Negative) Ur Leukocyte Esterase 1+ H (Negative) Urine WBC (Auto) 1+(6-10/hpf) H (Absent) Urine RBC (Auto) Trace(0-2/hpf) (Absent) Ur Squamous Epith Cells Present H (Absent) Urine Bacteria Absent (Absent) Urine Glucose Negative (Negative) Urine Ascorbic Acid * H (Negative) Result Diagrams: 12/22/16 23:25 12/22/16 23:25 Lab Statement: Any lab studies that have been ordered have been reviewed, and results considered in the medical decision making process. - Radiology CXR Xray Interpretation: Positive (See Comments) - May be early left infiltrate. Radiology Interpretation Completed By: ED Physician - EKG 2344 Cardiac Rate: NL - 84 bpm : Tachycardia EKG Rhythm: Sinus Rhythm EKG Interpretation: Early repolarization, no STEMi, no tachycardia Course/Dx - Course Assessment/Plan: Pt is a 31 y/o M BIBA who presents to ED s/p a series of 6 grand mal seizures tonight that began at 2140 and lasted for 20 minutes. Additionally notes fever. Denies cough. Staff worker notes that he did not eat much of his dinner and refused to drinks PMHx UTIs and seizures. Staff reports he has been medication compliant. Level 5 caveat due to MR. CXR reveals possible early left infiltrate. EKG reveals early repolarization with no STEMI and no tachycardia. Discussed care of pt with Dr. Santiago, (hopsitalist), who accepts pt for admission. Pt will be admitted with Dx of fever and possible PNA. - Differential Dx Differential Diagnoses Neuro: Positive: Metabolic Abnormality, Viral Syndrome, Other - uti, pneumonia,otitis media - Diagnoses Provider Diagnoses: Fever, possible PNA - Physician Notifications Discussed Care Of Patient With: Reji Santiago Time Discussed With Above Provider: 01:17 Instructed by Provider To: Admit As Inpatient Discharge - Discharge Plan Condition: Stable Disposition: ADMITTED TO [facility] documentation as recorded by the Annel vickers Rebecca accurately reflects the service I personally performed and the decisions made by , Joe Granados MD.
[2016-12-23] MEDS ORDERED: cefTRIAXone VIAL(*) 1,000 MG in NS 0.9% 50 ML* 50 ML IVPB SCH ×2 (04:00→06:00)
[2016-12-23] MEDS ORDERED: Omeprazole CAP* 20 MG PO SCH (06:00)
[2016-12-23] MEDS ORDERED: ADAPALENE 0.1% TOPICAL PRN (07:43)
[2016-12-23] MEDS ORDERED: [UNRECOGNIZED DRUG - OTHER] TOPICAL PRN (07:43)
[2016-12-23] MEDS ORDERED: Acetaminophen ADULT LIQ* 650 MG/20.3 ML UDC G TUBE PRN (07:43)
[2016-12-23] MEDS ORDERED: Tobramycin/Dexameth OPTH.SUSP* 2.5 M L BTL PRN (07:43)
[2016-12-23] MEDS ORDERED: Phenazopyridine TAB* 100 MG PO PRN (07:43)
[2016-12-23] MEDS ORDERED: EPINEPHrine AMP 1 MG/ML IM PRN (07:43)
[2016-12-23] MEDS ORDERED: Nystatin OINT* 15 GM TOPICAL PRN (07:43)
[2016-12-23] MEDS ORDERED: Ibuprofen ADULT LIQ* 600 MG/30 ML UDC G TUBE PRN (07:43)
[2016-12-23] MEDS ORDERED: Bisacodyl SUPP* 10 MG SUPP PR PRN (07:43)
[2016-12-23] MEDS ORDERED: NEOMYCIN BOTH EYES SCH (09:00)
[2016-12-23] MEDS ORDERED: POLYMYXIN B BOTH EYES SCH (09:00)
[2016-12-23] MEDS ORDERED: Multivitamins ADULT w/MIN LIQ* 15 ML UDC G TUBE SCH (09:00)
[2016-12-23] MEDS ORDERED: Glycerin ADULT SUPP PR SCH (09:00)
[2016-12-23] MEDS ORDERED: Cetirizine* 10 MG TAB PO SCH (09:00)
[2016-12-23] MEDS ORDERED: Sodium Phosphate ADULT ENEMA* 118 ml bottle PR SCH (09:00)
[2016-12-23] MEDS ORDERED: NUTRITIONAL SUPPLEMENTS G TUBE SCH (09:00)
[2016-12-23] MEDS ORDERED: levETIRAcetam LIQ* 500 MG/5 ML UDC PEG TUBE SCH (09:00)
[2016-12-23] MEDS ORDERED: CLINDAMYCIN TOPICAL SCH (09:00)
[2016-12-23] MEDS ORDERED: BENZOYL PEROXIDE TOPICAL SCH ×2 (09:00)
[2016-12-23] MEDS ORDERED: Famotidine SUSP* 40 MG/5 ML ORAL.SUSP G TUBE SCH (09:00)
[2016-12-23] MEDS ORDERED: Clotrimazole 1% CREAM* 45 GM TOPICAL SCH (09:00)
[2016-12-23] MEDS ORDERED: ERYTHROMYCIN 2% TOPICAL SCH (09:00)
[2016-12-23] MEDS ORDERED: Docusate CAP* 100 MG PO SCH (09:00)
[2016-12-23] MEDS ORDERED: Alfuzosin ER (NF) 10 MG TAB.ER PO SCH (09:00)
[2016-12-23] MEDS ORDERED: Hydrocortisone 1% CREAM* 30 GM TUBE TOPICAL SCH (09:00)
[2016-12-23] MEDS ORDERED: Polyethylene Glycol 3350* 17 GM PACKET G TUBE SCH (09:00)
[2016-12-23] MEDS ORDERED: DAPSONE TOPICAL SCH (09:00)
[2016-12-23] MEDS ORDERED: [UNRECOGNIZED DRUG - OTHER] PO SCH (09:00)
[2016-12-23] MEDS ORDERED: BACITRACIN BOTH EYES SCH (09:00)
[2016-12-23] MEDS ORDERED: Montelukast Sodium TAB* 10 MG SCH (09:00)
--- NOTE | 2016-12-23 09:25 | RAD ---
Indication: Seizure disorder. Low O2 saturation. Fever. Comparison: August 21, 2016 Technique: Upright AP 2338 hours Report: Low lung volumes with associated crowding of the pulmonary markings and mild subsegmental atelectasis. Negative for pleural effusion or pneumothorax. The heart, pulmonary vasculature, and mediastinal contours are unremarkable. Negative for free air beneath the diaphragm. Unchanged LEFT convex curve at the thoracic lumbar junction. IMPRESSION: Low lung volumes with probable subsegmental atelectasis. A bronchopneumonia is not excluded. Correlate with clinical assessment and consider PA and lateral chest views if deemed appropriate.
[2016-12-23 09:55] LABS: Hematocrit 39 % (42-52); Hemoglobin 12.9 g/dl (14.0-18.0); Mean Corpuscular HGB Conc 33 g/dl (31-36); Mean Corpuscular Hemoglobin 30 pg (27-31); Mean Corpuscular Volume 92 fL (80-94); Mean Platelet Volume 9 um3 (7.4-10.4); Red Blood Count 4.29 10^6/ul (4.0-5.4); Red Cell Distribution Width 15 % (10.5-15); White Blood Count 5.6 10^3/ul (3.5-10.8)
--- NOTE | 2016-12-23 15:34 | PN ---
Hospitalist Progress Note . HOSPITALIST DISCHARGE NOTE: See dc instructions and summary by me. Patient stable for dc dc instructions prepared DC patient to [facility] today.
[2016-12-23 15:44] VITALS: BP 115/74
[2016-12-23] MEDS ORDERED: lamoTRIgine TAB(*) 100 MG G TUBE SCH (18:00)
[2016-12-23] MEDS ORDERED: Emollient Lotion 480 ML BTL TOPICAL SCH (21:00)
--- NOTE | 2016-12-23 22:08 | CONS ---
CC: Dr. Sloan * NEUROLOGY CONSULTATION: DATE OF CONSULT: 12/23/16 LOCATION: He is inpatient in room 348. REFERRING PHYSICIAN: Dr. Zarate. CHIEF COMPLAINT: Seizures. HISTORY OF PRESENT ILLNESS: Amaury Diaz is a 31-year-old developmentally disabled man with history of epilepsy, followed by Dr. Sloan. His father is Grey Emily, who provided additional history as well as review of the records as Amaury is nonverbal. Amaury presented to the emergency room yesterday with repetitive seizures. He has a long history of epilepsy, but had been seizure free for 2 years on his current regimen of Keppra and Lamictal. He had a seizure in August in the setting of urinary tract infection and again in September again in the setting of urinary tract infection. He was seizure free between September and yesterday. His seizures consist of generalized convulsions. He had a seizure the night before last; he was brought to the emergency room and was afebrile and seemed at his baseline. However, he had another seizure last night and had a temperature of 100.5 when he presented to the emergency room. He was admitted and given a dose of ceftriaxone, and urinalysis revealed 1+ leukocyte esterase and 1+ white blood cells. He has been maintained on Keppra 1500 mg twice per day per G-tube and lamotrigine 100 mg per day per G-tube for at least a year or so. His last levels that I see in the records were from 11/23/16 when lamotrigine was 2.9 and levetiracetam 25.8. He lives in an adult home and gets his medications reliably. MEDICATIONS: Consist of: 1. Keppra 1500 mg per G-tube b.i.d. 2. Lamotrigine 100 mg per G-tube q. day. 3. Multiple topicals. 4. Fexofenadine 100 mg per G-tube q.a.m. 5. Montelukast 10 mg per G-tube q. day. 6. Ranitidine 10 mL per G-tube q. day. 7. Macrobid 100 mg per G-tube b.i.d. ALLERGIES: He is allergic to CIPROFLOXACIN, CLINDAMYCIN, SULFA DRUGS with rashes, in the case of CIPROFLOXACIN anaphylaxis. REVIEW OF SYSTEMS: From his healthcare worker from [facility] as he is completely nonverbal, he does take food orally and as far as she knows does not have choking spells. PHYSICAL EXAM: He is well hydrated with scaphocephaly and macroglossia. He hold his legs in a somewhat frog leg configuration. His first temperature was 100.4 temporally, but since then he has been afebrile. Most recent blood pressure is 120/94, heart rate 70. The skin is warm and generally dry. Heart tones are normal. He is asleep initially and it takes a bit to rouse him, but does wake up when I start manipulating his limbs. He has irregular-shaped small pupils that react weakly to light. I can barely see a red reflex on either side. When awake, eyes are disconjugate. He moves his limbs to stimulation, but generally hold his arms flexed and his legs in abducted at the hips and flexed at the knees. I am not able to establish eye contact. He does not attempt to vocalize. IMPRESSION AND PLAN: Impression is that of break-through seizures in the setting of infection. He had done very well for 2 years on his current anticonvulsant regimen. His last anticonvulsant levels, I believe, were at the same dose of medicine that he is currently on and his lamotrigine level is fairly low. Given that transient fever seemed to be enough to trigger a seizure , I would recommend increasing lamotrigine. There is increase levetiracetam by level, but that is more likely to cause agitation and so I think the lamotrigine would make sense as a medicine to alter. I recommend increasing it from 100 mg per day to 150 mg in divided doses. I will speak with his father to discuss my recommendations as well as with Dr. Zarate. [id number]/[facility] #: [id number] MALLORY
--- NOTE | 2016-12-24 03:40 | DS ---
CC: Sal Nation MD ([facility]) * DISCHARGE SUMMARY: DATE OF ADMISSION: 12/23/16 DATE OF DISCHARGE: 12/23/16 PRIMARY CARE PROVIDER: Dr. Sal Nation. PRINCIPAL DISCHARGE DIAGNOSIS: Seizure exacerbation with left lingular pneumonia and doing better after several hours of observation and discharged in stable condition. SECONDARY DIAGNOSES: 1. Cerebral palsy. 2. Seizure disorder. 3. Gastroesophageal reflux disease. DISCHARGE MEDICATION REGIMEN: New medications: 1. Increased Lamictal dose to 150 mg by G-tube at night and 50 mg in the morning (was previously 100 mg daily). 2. Ceftin 500 mg by G-tube twice daily for 5 days then stop. 3. Azithromycin 250 mg by mouth daily for 5 days then stop. Continue all other medications as he was previously. These medications include: 1. Allergy shots 1 injection as needed. 2. Acetaminophen 325 mg G-tube q.4 hours p.r.n. pain/fever. 3. Adapalene 0.1% gel apply at bedtime. 4. Uroxatral 10 mg by G-tube daily. 5. Aquaphor apply topically to skin at bedtime. 6. Benzoyl peroxide wash applied topically daily. 7. Biscolax/bisacodyl suppository 10 mg NH as needed. 8. Clindamycin/benzoyl peroxide 1.2/5% strength applied topically daily. 9. Clotrimazole 1% cream applied topically daily - as previously. 10. Dapsone 5% gel applied topically every morning. 11. New-Skin/1% applied topically twice daily. 12. EpiPen administer as needed as per previous instruction. 13. Erythromycin Acne aid 2% gel apply daily as previously. 14. Fexofenadine 180 mg by G-tube every morning. 15. Fleet Liquid Glycerin Suppository 5.6 g strength NH daily as needed for constipation. 16. Hydrocortisone 1% cream applied topically at previous frequency. 17. Ibuprofen liquid formulation 100 mg per 5 mL - 20 mL by G-tube q.6 hours p.r.n. pain/fever. 18. Lamotrigine - as above (new dosing) 19. Keppra 1500 mg by G-tube twice daily. 20. Montelukast 10 mg by G-tube daily. 21. Multivitamin with minerals (Centrum Silver) 1 tab by G-tube daily. 22. Neomycin/bacitracin/zinc/polymyxin apply this triple antibiotic formulation topically as previously. 23. Liquid Resource 2.0 one can by G-tube daily. 24. Nystatin ointment 1 application topically 3 times daily. 25. Pyridium 200 mg by mouth q.8 hours p.r.n. 26. Polyethylene glycol 1 powder pack in suspension by G-tube in the morning. 27. Ranitidine 10 mL by G-tube daily (150 mg per 10 mL) 28. SF 5000 1.1% daily (shampoo?) 29. Sodium phosphate - Fleet Enema 1 bottle NH daily as needed for constipation. 30. Tobramycin/dexamethasone ophthalmic suspension 5 drops left ear twice daily. HISTORY OF PRESENT ILLNESS/HOSPITAL COURSE: Please see the H and P by Dr. Reji Santiago on 12/23/16. In brief, Mr. Diaz is a 31-year-old resident with a history of cerebral palsy and seizure disorders, who has been experiencing an increase in his seizure frequency over the past few months. The patient had come to [facility] the night prior to admission for ongoing seizure, but was afebrile with baseline labs and was discharged to home. He then returned with a seizure lasting approximately 20 minutes which is longer than the previous seizures. He had a low grade fever on presentation. The patient was admitted following a chest x-ray that showed a lingular infiltrate and there was some concern there was some increasing vulnerability secondary to this ongoing infection. The patient was started on IV ceftriaxone and azithromycin. The patient was continued on his initial doses of levetiracetam and lamotrigine. Dr. Terrance Minor of the neurology consult service evaluated the patient and recommended increasing the lamotrigine dose to 150 mg daily as detailed above. The patient was in excellent condition when I evaluated him later in the day on 12/23/16. He was interactive and the staff was complementary of his current status. The patient is being discharged with 5 days of antibiotics as above as well as his new dose of lamotrigine. Of course, if the patient has further difficulties, recurrent seizures, any respiratory distress, he can come back to the emergency room for repeat evaluation. Total time taken to discharge Mr. Diaz was 40 minutes. Greater than half time spent coordinating the care relating to the discharge. I did speak several times with Dr. Diaz, the patient's father, who is a [facility] physician. CONDITION AT DISCHARGE: Stable. [id number]/[facility] #: [id number] MALLORY
[2016-12-25 12:06] LABS: Levetiracetam 40.7 mcg/mL
== END 2016-12-23 16:20 ==
LOC: ED 22:48 → SSU 12-23 01:05
PROVIDERS: ADMIT Hospitalist; ATTEND Internal Medicine
DX: J18.9 Pneumonia, unspecified organism (principal); G80.9 Cerebral palsy, unspecified; G40.909 Epilepsy, unspecified, not intractable, without status epilepticus; K21.9 Gastro-esophageal reflux disease without esophagitis; Z93.1 Gastrostomy status; R56.9 Unspecified convulsions; R50.9 Fever, unspecified
CPT/HCPCS: 36415; 71010; 80053; 80175; 80177; 81003; 83605; 85025; 85610; 85730; 87040; 87077; 87086; 87186; 87899; 93005; 94760; 96360; 99283; A9270-GY; G0378; J0456; J0696

== ENCOUNTER 2017-06-12 23:23 | Emergency (ER) | payer BC, MEDICAID ==
[2017-06-12] MEDS ORDERED: NS 0.9% 1000 ML* 1,000 ML IV ONE (23:49)
[2017-06-13 00:16] LABS: Hematocrit 46 % (42-52); Hemoglobin 15.4 g/dl (14.0-18.0); Mean Corpuscular HGB Conc 33 g/dl (31-36); Mean Corpuscular Hemoglobin 31 pg (27-31); Mean Corpuscular Volume 92 fL (80-94); Mean Platelet Volume 8 um3 (7.4-10.4); Red Blood Count 4.99 10^6/ul (4.0-5.4); Red Cell Distribution Width 15 % (10.5-15); White Blood Count 6.5 10^3/ul (3.5-10.8)
[2017-06-13 00:43] LABS: Albumin 4.3 g/dL (3.2-5.2); BUN/Creatinine Ratio 17.8 (8-20); Calcium 9.9 mg/dL (8.6-10.3); EGFR African American 104.4 (>60); EGFR Non-African American 81.1 (>60); Potassium 3.7 mmol/L (3.5-5.0); Total Bilirubin 0.8 mg/dL (0.2-1.0); Total Protein 7.3 g/dL (6.4-8.9)
[2017-06-13 00:50] LABS: Urine Bacteria 1+ (Absent)
[2017-06-13] MEDS ORDERED: cefTRIAXone VIAL(*) 1,000 MG in NS 0.9% 50 ML* 50 ML IVPB ONE (01:27)
[2017-06-13] MEDS ORDERED: cefTRIAXone VIAL(*) 1,000 MG in D5W 50 ML BAG* 50 ML IVPB ONE (01:33)
[2017-06-13 01:58] VITALS: BP 125/69
--- NOTE | 2017-06-13 06:39 | ED ---
Jeanne Espino Gabriel, scribed for Edgard Hernandez MD on 06/13/17 at 0019 . Neurological HPI - HPI Summary HPI Summary: This patient is a 32 year old M BIBA to [facility] accompanied by parents with a chief complaint of a recent seizure since earlier today. Patient is mentally handicapped and during one of his daily catheterization he began to seize. The episode lasted about a minute (not uncommon) and then his face and tongue became blue. His father states he is at his baseline currently and that there were no injuries during the seizure. - History of Current Complaint Chief Complaint: EDSeizure Stated Complaint: UNRESPONSIVE Time Seen by Provider: 06/12/17 23:47 Hx Obtained From: Family/Delivery Truck Driver - parents Onset/Duration: Resolved Timing: Constant Pain Intensity: 0 Pain Scale Used: 0-10 Numeric - Additional Pertinent History Primary Care Physician: LINDSAY - Allergy/Home Medications Allergies/Adverse Reactions: Allergies Allergy/AdvReac Type Severity Reaction Status Date / Time Ciprofloxacin [From Cipro] Allergy ANAPHYLACTI Verified 08/21/16 02:28 C Clindamycin Allergy BODY RASH Verified 08/21/16 02:28 Sulfamethoxazole Allergy Rash And Verified 08/21/16 02:28 w/Trimethoprim Itching [From Bactrim] ENVIRONMENTAL/SEASONAL Allergy Unknown Uncoded 08/21/16 02:28 HAYFEVER Reaction Details PMH/Surg Hx/FS Hx/Imm Hx Previously Healthy: No Endocrine/Hematology History: Denies: Hx Diabetes, Hx Thyroid Disease Cardiovascular History: Denies: Hx Congestive Heart Failure, Hx Hypertension Respiratory History: Reports: Hx Seasonal Allergies, Hx Sleep Apnea - possible Denies: Hx Asthma, Hx Chronic Obstructive Pulmonary Disease (COPD) Comment Only: Other Respiratory Problems/Disorders - G-BUTTON FOR MEDICATIONS GI History: Reports: Hx Gastroesophageal Reflux Disease Denies: Hx Ulcer History: Reports: Other Problems/Disorders - frequent UTIs, neurogenic bladder Denies: Hx Renal Disease Sensory History: Denies: Hx Contacts or Glasses, Hx Hearing Aid Opthamlomology History: Denies: Hx Contacts or Glasses Neurological History: Reports: Hx Seizures - history of, control with medication , Other Neuro Impairments/Disorders - NON-VERBAL, CP - Surgical History Surgery Procedure, Year, and Place: GASTROPLASTY AT AGE 10, [facility], ENT surgery Hx Anesthesia Reactions: Yes - PROBLEMS WITH POST OP PAIN AFTER TONSILLECTOMY AND FUNDIPLICATION Infectious Disease History: No Infectious Disease History: Denies: Hx Clostridium Difficile, Hx Hepatitis, Hx Human Immunodeficiency Virus (HIV), Hx of Known/Suspected MRSA, Hx Shingles, Hx Tuberculosis, Traveled Outside the [place] in Last 30 Days - Family History Known Family History: Positive: Unknown Family History: LEVEL 5 CAVEAT secondary to MR. - Social History Alcohol Use: None Hx Substance Use: No Substance Use Type: Reports: None Hx Tobacco Use: No Smoking Status (MU): Never Smoked Tobacco Review of Systems Constitutional: Negative - injuries during the episode Negative: Fever Skin: Negative - Trauma to tounge All Other Systems Reviewed And Are Negative: Yes Physical Exam - Summary Physical Exam Summary: Appearance: Well appearing, no pain distress, Urine is bright orange consistent with perridum treatment Skin: warm, dry, reflects adequate perfusion Head/face: normal Eyes: will not permit pupil exam, slightly injected conjunctiva ENT: Large, dry protuberant tongue and dry, no injury to tongue Neck: supple, non-tender Respiratory: CTA, breath sounds present, no apparent dyspnea Cardiovascular: RRR, pulses symmetrical Abdomen: non-tender, soft Bowel: present Musculoskeletal: normal, strength/ROM intact, no chest wall tenderness Neuro: normal, sensory motor intact, A&Ox3 Triage Information Reviewed: Yes Vital Signs On Initial Exam: Initial Vitals Temp Pulse Resp BP Pulse Ox 98.2 F 83 10 121/81 95 06/12/17 23:30 06/12/17 23:30 06/12/17 23:30 06/12/17 23:30 06/12/17 23:30 Vital Signs Reviewed: Yes - Shirley Coma Scale Coma Scale Total: 9 Diagnostics - Vital Signs Vital Signs Temp Pulse Resp BP Pulse Ox 06/12/17 23:30 98.2 F 83 10 121/81 95 - Laboratory Lab Results: Lab Results 06/12/17 06/12/17 06/13/17 Range/Units 23:59 23:59 00:13 WBC 6.5 (3.5-10.8) 10^3/ul RBC 4.99 (4.0-5.4) 10^6/ul Hgb 15.4 (14.0-18.0) g/dl Hct 46 (42-52) % MCV 92 (80-94) fL MCH 31 (27-31) pg MCHC 33 (31-36) g/dl RDW 15 (10.5-15) % Plt Count 193 (150-450) 10^3/ul MPV 8 (7.4-10.4) um3 Neut % (Auto) 59.6 (38-83) % Lymph % (Auto) 28.9 (25-47) % Dauphin % (Auto) 10.1 H (1-9) % Eos % (Auto) 1.3 (0-6) % Baso % (Auto) 0.1 (0-2) % Absolute Neuts (auto) 3.9 (1.5-7.7) 10^3/ul Absolute Lymphs (auto) 1.9 (1.0-4.8) 10^3/ul Absolute Monos (auto) 0.7 (0-0.8) 10^3/ul Absolute Eos (auto) 0.1 (0-0.6) 10^3/ul Absolute Basos (auto) 0 (0-0.2) 10^3/ul Absolute Nucleated RBC 0 10^3/ul Nucleated RBC % 0.1 Sodium 138 (133-145) mmol/L Potassium 3.7 (3.5-5.0) mmol/L Chloride 103 (101-111) mmol/L Carbon Dioxide 28 (22-32) mmol/L Anion Gap 7 (2-11) mmol/L BUN 19 (6-24) mg/dL Creatinine 1.07 (0.67-1.17) mg/dL Est GFR ( Amer) 104.4 (>60) Est GFR (Non-Af Amer) 81.1 (>60) BUN/Creatinine Ratio 17.8 (8-20) Glucose 87 (70-100) mg/dL Calcium 9.9 (8.6-10.3) mg/dL Total Bilirubin 0.80 (0.2-1.0) mg/dL AST 34 (13-39) U/L ALT 51 (7-52) U/L Alkaline Phosphatase 82 (34-104) U/L Total Protein 7.3 (6.4-8.9) g/dL Albumin 4.3 (3.2-5.2) g/dL Globulin 3.0 (2-4) g/dL Albumin/Globulin Ratio 1.4 (1-3) Urine Color Valencia Urine Appearance Cloudy Urine pH Not Reportable Ur Specific Barto Not Reportable Urine Protein Not Reportable Urine Ketones Not Reportable Urine Blood Not Reportable Urine Nitrate Not Reportable Urine Bilirubin Not Reportable Urine Urobilinogen Not Reportable Ur Leukocyte Esterase Not Reportable Urine WBC (Auto) 3+(>20/hpf) H (Absent) Urine RBC (Auto) 2+(6-10/hpf) H (Absent) Ur Squamous Epith Cells Present H (Absent) Urine Bacteria 1+ H (Absent) Urine Glucose Not Reportable Urine Ascorbic Acid Not Reportable Result Diagrams: 06/12/17 23:59 06/12/17 23:59 Lab Statement: Any lab studies that have been ordered have been reviewed, and results considered in the medical decision making process. Re-Evaluation - Re-Evaluation First Eval Change: Improved Course/Dx - Course Course Of Treatment: pt with CP and epilepsy with frequent seizures. Today's was complicated by period of upper airway occlusion and resultant hypoxia. Chest is non-tender after CPR provided for a short time. Found to have UTI -- tx with rocephin. UTI a frequent trigger of his seizures. At baseline now per physician father. - Differential Dx Differential Diagnoses Neuro: Positive: Hypothermia, Postical, Seizure Disorder - Diagnoses Provider Diagnoses: UTI (urinary tract infection), bacterial, Hypoxia, Epileptic seizure, generalized, Cerebral palsy Discharge - Discharge Plan Condition: Improved Disposition: HOME Patient Education Materials: Urinary Tract Infection in Men (ED), Recurrent Seizures in Adults (ED), Hypoxia (ED) Referrals: Sal Nation MD [Primary Care Provider] - Additional Instructions: Return with fever, recurrent seizure, worse/new symptoms or other concerns. Keep well hydrated. Follow up drug levels with Neurologist. The documentation as recorded by the Jeanne vickers Gabriel accurately reflects the service I personally performed and the decisions made by , Edgard Hernandez MD.
--- NOTE | 2017-06-15 09:23 | PN ---
Progress Note - Progress Note Date of Service: 06/15/17 Note: Patient urine grew gram neg bacilli 50-75,000. patient given gram of rocephin in ED. will wait for sensitive due to multiple drug allergies.
--- NOTE | 2017-06-16 08:56 | PN ---
Progress Note - Progress Note Date of Service: 06/16/17 Note: Discussed with dr neal and due to allergies will place on cefuroxime 500mg bid x7 days for patient UTI. spoke with parents about antibiotic.
== END 2017-06-13 01:50 | disposition home or self-care (01) ==
LOC: ED 23:23
DX: N39.0 Urinary tract infection, site not specified (principal); R09.02 Hypoxemia; G40.409 Other generalized epilepsy and epileptic syndromes, not intractable, without status epilepticus; B96.89 Other specified bacterial agents as the cause of diseases classified elsewhere; G80.9 Cerebral palsy, unspecified
CPT/HCPCS: 36415; 80053; 80175; 80177; 81003; 81015; 85025; 87040; 87077; 87086; 87186; 96360; 99283; J0696

== ENCOUNTER 2017-07-22 11:16 | Emergency (ER) | payer BC, MEDICAID ==
[2017-07-22 12:54] VITALS: BP 120/69
--- NOTE | 2017-07-22 13:43 | UC ---
Eye Complaint HPI - HPI Summary HPI Summary: Crusty drainage from right eye today with conjunctiva injection - History of Current Complaint Chief Complaint: UCEye Stated Complaint: EYE COMPLAINT Time Seen by Provider: 07/22/17 13:36 Hx Obtained From: Patient Onset/Duration: Sudden Onset, Lasting Days - 1 Timing: Constant Severity Initially: Mild Severity Currently: Mild Location of Injury: Conjunctiva Aggravating Factor(s): Nothing Alleviating Factor(s): Nothing Associated Signs And Symptoms: Positive: Drainage (Purulent) - Allergies/Home Medications Allergies/Adverse Reactions: Allergies Allergy/AdvReac Type Severity Reaction Status Date / Time Ciprofloxacin [From Cipro] Allergy ANAPHYLACTI Verified 07/22/17 12:26 C Clindamycin Allergy BODY RASH Verified 07/22/17 12:26 Sulfamethoxazole Allergy Rash And Verified 07/22/17 12:26 w/Trimethoprim Itching [From Bactrim] ENVIRONMENTAL/SEASONAL Allergy Unknown Uncoded 07/22/17 12:26 HAYFEVER Reaction Details PMH/Surg Hx/FS Hx/Imm Hx Previously Healthy: No - CP GI/ History: Gastroesophageal Reflux Neurological History: Seizures - Surgical History Surgical History: Yes Surgery Procedure, Year, and Place: GASTROPLASTY AT AGE 10, [facility], ENT surgery - Family History Known Family History: Positive: Unknown Family History: LEVEL 5 CAVEAT secondary to MR. - Social History Occupation: Disabled Lives: Assisted Living Alcohol Use: None Substance Use Type: None Smoking Status (MU): Never Smoked Tobacco - Immunization History Most Recent Influenza Vaccination: 2017 Most Recent Tetanus Shot: 2004 Most Recent Pneumonia Vaccination: 2005 Review of Systems Constitutional: Negative Skin: Negative Eyes: Eye Redness - right ENT: Negative Respiratory: Negative Cardiovascular: Negative Gastrointestinal: Negative Genitourinary: Negative Motor: Negative Neurovascular: Negative Musculoskeletal: Negative Neurological: Negative Psychological: Negative Is Patient Immunocompromised?: No All Other Systems Reviewed And Are Negative: Yes Physical Exam Triage Information Reviewed: Yes Appearance: Well-Appearing - At patients baseline, No Pain Distress, Well- Nourished Vital Signs: Initial Vital Signs Temp 97.9 F 07/22/17 12:48 Pulse 60 07/22/17 12:48 Resp 17 07/22/17 12:48 BP 120/69 07/22/17 12:48 Pulse Ox 99 07/22/17 12:48 Vital Signs Reviewed: Yes Eye Exam: Normal Eyes: Positive: Conjunctiva Clear - left, Conjunctiva Inflamed - right, Discharge - right ENT Exam: Normal ENT: Positive: Normal ENT inspection, Hearing grossly normal, TMs normal. Negative: Nasal congestion, Nasal drainage Dental Exam: Normal Neck exam: Normal Neck: Positive: Supple, Nontender Respiratory Exam: Normal Respiratory: Positive: Chest non-tender, Lungs clear, No respiratory distress, No accessory muscle use Cardiovascular Exam: Normal Cardiovascular: Positive: RRR, Pulses Normal, Brisk Capillary Refill Musculoskeletal Exam: Other - at baseline Neurological Exam: Other - at patients baseline Psychological Exam: Other - at patients baseline Skin Exam: Normal Eye Complaint Course/Dx - Course Course Of Treatment: warm compress eyrthromycin eye ointment follow with pcp prn - Differential Dx/Diagnosis Provider Diagnoses: Conjuctivitis od Discharge - Discharge Plan Condition: Stable Disposition: HOME Prescriptions: Erythromycin OPTH OINT* [Erythromycin 0.5% OPTH OINT*] 0.5 inch RIGHT EYE QID # 1 ophth.oint Patient Education Materials: Conjunctivitis (ED) Referrals: Sal Nation MD [Primary Care Provider] - If Needed
[2017-07-22] MEDS ORDERED: Erythromycin OPTH OINT* APPLIC OINT RIGHT EYE ONE (13:48)
== END 2017-07-22 14:18 | disposition home or self-care (01) ==
LOC: UCEAST 11:16
DX: H10.31 Unspecified acute conjunctivitis, right eye (principal); K21.9 Gastro-esophageal reflux disease without esophagitis; R56.9 Unspecified convulsions; Z88.1 Allergy status to other antibiotic agents; Z88.2 Allergy status to sulfonamides
CPT/HCPCS: 99212; A9270-GY; G0463

== ENCOUNTER 2018-07-12 21:38 | Emergency (ER) | payer MEDICAID ==
--- NOTE | 2018-07-12 21:57 | ED ---
Neurological HPI - HPI Summary HPI Summary: Time seen by provider: 21:48. LEVEL 5 CAVEAT The patient is a 33 y/o F presenting to [facility] arriving by ambulance with a chief complaint of convulsing for 10 minutes, as given by EMS report from [facility]. When EMS arrived, the patient was not convulsing. He has hx of seizures and cerebral palsy, and he is nonverbal. He has a koko button in GI for feeding. - History of Current Complaint Chief Complaint: EDSeizure Stated Complaint: SEIZURES Time Seen by Provider: 07/12/18 21:46 Hx Obtained From: EMS Hx From Patient Unobtainable Due To: Other - pt is nonverbal due to cerebral palsy and MR Onset/Duration: Sudden Onset, Started minutes ago, Resolved Timing: Sudden Onset Current Severity: None Seizure Severity: Moderate Number of Seizures: 1 - convulsion lasted for 10 mintues - Additional Pertinent History Primary Care Physician: LINDSAY - Allergy/Home Medications Allergies/Adverse Reactions: Allergies Allergy/AdvReac Type Severity Reaction Status Date / Time ciprofloxacin Allergy Severe Anaphylatic Verified 07/12/18 22:00 Shock clindamycin Allergy Rash Verified 07/12/18 22:00 sulfamethoxazole Allergy Rash And Verified 07/12/18 22:00 [From Bactrim] Itching trimethoprim [From Bactrim] Allergy Rash And Verified 07/12/18 22:00 Itching ENVIRONMENTAL/SEASONAL Allergy Unknown Uncoded 07/22/17 12:26 HAYFEVER Reaction Details Home Medications: Home Medications Alfuzosin HCl [Alfuzosin HCl ER] 10 mg PO DAILY 07/13/18 [History Confirmed ] Lactulose* 15 ml PO QID PRN 07/13/18 [History Confirmed 07/13/18] Sodium Phosphate ADULT ENEMA* [Fleet Enema*] 1 enema [place] DAILY PRN 07/13/18 [ History Confirmed 07/13/18] diPHENhydraMINE PO* [Benadryl PO 25 MG TAB*] 25 mg PO BEDTIME PRN 07/13/18 [ History Confirmed 07/13/18] PMH/Surg Hx/FS Hx/Imm Hx Endocrine/Hematology History: Denies: Hx Diabetes, Hx Thyroid Disease Cardiovascular History: Denies: Hx Congestive Heart Failure, Hx Hypertension Respiratory History: Reports: Hx Seasonal Allergies, Hx Sleep Apnea - possible Denies: Hx Asthma, Hx Chronic Obstructive Pulmonary Disease (COPD) Comment Only: Other Respiratory Problems/Disorders - G-BUTTON FOR MEDICATIONS GI History: Reports: Hx Gastroesophageal Reflux Disease Denies: Hx Ulcer History: Reports: Other Problems/Disorders - frequent UTIs, neurogenic bladder Denies: Hx Renal Disease Sensory History: Denies: Hx Contacts or Glasses, Hx Hearing Aid Opthamlomology History: Denies: Hx Contacts or Glasses Neurological History: Reports: Hx Seizures - history of, control with medication , Other Neuro Impairments/Disorders - NON-VERBAL, CP - Surgical History Surgery Procedure, Year, and Place: GASTROPLASTY AT AGE 10, [facility], ENT surgery Hx Anesthesia Reactions: Yes - PROBLEMS WITH POST OP PAIN AFTER TONSILLECTOMY AND FUNDIPLICATION Infectious Disease History: Denies: Hx Clostridium Difficile, Hx Hepatitis, Hx Human Immunodeficiency Virus (HIV), Hx of Known/Suspected MRSA, Hx Shingles, Hx Tuberculosis, Hx Known/ Suspected VRE, Hx Known/Suspected VRSA, History Other Infectious Disease - Family History Known Family History: Positive: Unknown Family History: LEVEL 5 CAVEAT secondary to MR. - Social History Alcohol Use: None Hx Substance Use: No Substance Use Type: Reports: None Hx Tobacco Use: No Smoking Status (MU): Never Smoked Tobacco Review of Systems Neurological: Other - convulsing for 10 minutes, per EMS All Other Systems Reviewed And Are Negative: No - Comments Additional Review of Systems Comments: LEVEL 5 CAVEAT Physical Exam - Summary Physical Exam Summary: Appearance: Well-appearing, Well-nourished, lying in bed comfortably Skin: Warm, dry, no obvious rash Eyes: sclera anicteric, no conjunctival pallor ENT: mucous membranes moist, pharynx appears normal Neck: Supple, nontender Respiratory: Clear to auscultation, no signs of respiratory distress Cardiovascular: Normal S1, S2. No murmurs. Normal distal pulses in tibial and radial bilaterally. Abdomen: Soft, nontender, normal active bowel sounds present Musculoskeletal: Normal, Strength/ROM Intact Neurological: nonverbal, responds to noxious stimuli Psychiatric: affect is normal, does not appear anxious or depressed Triage Information Reviewed: Yes Vital Signs On Initial Exam: Initial Vitals Temp Pulse Resp BP Pulse Ox 99.3 F 79 18 123/79 98 07/12/18 21:45 07/12/18 21:45 07/12/18 21:45 07/12/18 21:45 07/12/18 21:45 Vital Signs Reviewed: Yes Diagnostics - Vital Signs Vital Signs Temp Pulse Resp BP Pulse Ox 07/12/18 21:45 99.3 F 79 18 123/79 98 - Laboratory Result Diagrams: 07/12/18 21:59 07/12/18 21:59 Lab Statement: Any lab studies that have been ordered have been reviewed, and results considered in the medical decision making process. Course/Dx - Course Course Of Treatment: Time seen by provider: 21:48. LEVEL 5 CAVEAT. The patient is a 33 y/o F presenting to [facility] arriving by ambulance with a chief complaint of convulsing for 10 minutes, as given by EMS report from [facility]. When EMS arrived, the patient was not convulsing. He has hx of seizures and cerebral palsy, and he is nonverbal. He has a koko button in GI for feeding. Upon physical exam, the patient is nonverbal and responds to noxious stimuli. In the ED course, blood work is negative and UA reveals WBC and bacteria. After discussion with the patient's father, we elected to hold off on treating for possible UTI as the patient has a neurogenic bladder and this urinalysis likely represents a chronic state rather than a true infection. The patient has been observed for several hours in the emergency department and has not shown any further seizure activity. At this point he appears to be stable to return to his senior care setting where he will doubtless be much more comfortable. This was discussed with the patient's father who is in agreement. - Diagnoses Provider Diagnoses: Cerebral palsy, Seizure disorder Provider Diagnoses: (Ruled Out): Sepsis, Fever Discharge - Sign-Out/Discharge Documenting (check all that apply): Patient Departure - Discharge Plan Condition: Good Disposition: HOME Patient Education Materials: Epilepsy (ED) Referrals: Sal Nation MD [Primary Care Provider] - 3 Days - Billing Disposition and Condition Condition: GOOD Disposition: Home - Attestation Statements Document Initiated by Scribe: Yes Documenting Scribe: Carmel Cheung Provider For Whom Becky is Documenting (Include Credential): Dr. Ahsan Phipps MD Scribe Attestation: Carmel Espino scribed for Dr. Ahsan Phipps MD on 07/15/18 at 1415. Scribe Documentation Reviewed: Yes Provider Attestation: The documentation as recorded by the scribe, Carmel Cheung accurately reflects the service I personally performed and the decisions made by me, Dr. Ahsan Phipps MD Status of Becky Document: Viewed
[2018-07-12 22:07] LABS: ABS Basophils 0 10^3/ul (0-0.2); ABS Eosinophils 0.1 10^3/ul (0-0.6); ABS Lymphocytes 1.7 10^3/ul (1.0-4.8); ABS Monocytes 0.4 10^3/ul (0-0.8); ABS Neutrophils 2.8 10^3/ul (1.5-7.7); ABS Nucleated RBC 0 10^3/ul; Eosinophil % 1.2 %; Hematocrit 42 % (42-52); Hemoglobin 14.1 g/dl (14.0-18.0); Mean Corpuscular HGB Conc 34 g/dl (31-36); Mean Corpuscular Hemoglobin 31 pg (27-31); Mean Corpuscular Volume 93 fL (80-94); Mean Platelet Volume 8.6 fL (7.4-10.4); Nucleated Red Blood Cells % 0; Platelet Count 182 10^3/ul (150-450); Red Cell Distribution Width 15 % (10.5-15)
[2018-07-12 22:26] LABS: Albumin 4.1 g/dL (3.2-5.2); Albumin/Globulin Ratio 1.6 (1-3); BUN/Creatinine Ratio 17.6 (8-20); Calcium 9.3 mg/dL (8.6-10.3); EGFR Non-African American 105.1 (>60); Globulin 2.6 g/dL (2-4); Potassium 4.2 mmol/L (3.5-5.0); Total Bilirubin 0.4 mg/dL (0.2-1.0); Total Protein 6.7 g/dL (6.4-8.9)
[2018-07-12 22:53] LABS: Urine Appearance Cloudy; Urine Bacteria 1+ (Absent); Urine Bilirubin Negative (Negative); Urine Blood Negative (Negative); Urine Color Yellow; Urine Glucose Negative (Negative); Urine Ketones Negative (Negative); Urine Nitrite Negative (Negative); Urine Protein Negative (Negative); Urine Red Blood Cell Trace(0-2/hpf) (Absent); Urine Specific Gravity 1.016 (1.010-1.030); Urine Urobilinogen Negative (Negative); Urine White Blood Cell 1+(6-10/hpf) (Absent)
[2018-07-13 01:55] VITALS: BP 121/65
--- NOTE | 2018-07-15 06:05 | PN ---
Progress Note - Progress Note Date of Service: 07/12/18 Note: Per note: Dr. Phipps and patients father agreed to hold off on treatment of UTI This is likely a chronic state and not a true infection causing fevers, etc. Will not send antibiotic at this time and patient will continue to be followed by Dr. Jacob
[2018-07-16 13:04] LABS: Levetiracetam 46.6 mcg/mL
[2018-07-16 14:05] LABS: Lamotrigine 4.6 mcg/mL (2.5 - 15.0)
== END 2018-07-13 01:51 | disposition home or self-care (01) ==
LOC: ED 21:38
DX: G40.909 Epilepsy, unspecified, not intractable, without status epilepticus (principal); G80.9 Cerebral palsy, unspecified; Z88.2 Allergy status to sulfonamides; Z88.1 Allergy status to other antibiotic agents
CPT/HCPCS: 36415; 80053; 80175; 80177; 81003; 81015; 83605; 85025; 87077; 87086; 87186; 99284

== ENCOUNTER 2018-09-01 19:20 | Observation (INO) | payer BC, MEDICAID ==
--- OUTSIDE RECORDS SUMMARY | 2018-09-01 19:47 | XMS REPORT ---
:1985 Author Care Team Providers Name Role Phone Unavailable Unavailable Unavailable Problems Condition Condition Condition Status Onset Resolution Last Treating Comments Name Details Category Date Date Treatment Clinician Date Unspecified Active 2009-01-19 Intellectual 00:00:00 Disability Intellectual Active 2018-02-13 Disability 00:00:00 Allergies, Adverse Reactions, Alerts Allergy Name Allergy Status Severity Reaction(s) Onset Inactive Treating Comments Type Date Date Clinician MEDICATION Drug Active unknown 1968-07 ALLERGIES: Allergy 2 Clindamycin- 19:00: Allergy to PO 00 form, Cipro, Bactrim FOOD ALLERGIES: none OTHER (latex, environmental, etc.): Environmental allergies- pollen, dust mites, mold Social History Smoking Status Start Date Stop Date Unknown if ever smoked Social History Observation Description Sex Male Medications Ordered Filled Start Stop Current Ordering Indication Dosage Frequency Signature Comments Components Medication Medication Date Date Medication? Clinician (SIG) Name Name Straight Straight 2018 2018- No 4times 4/Day Complete Catheteriza Catheteriza 2-10 05-10 a day straight tion tion 00:00: 00:00 catheteriz 00 :00 ation at 10:45 using sterile technique and record the amount. Resource Resource Yes 2.0can 0/ If unable 1-29 to orally 00:00: consume 00 resource, provide 1 can Resource 2.0 via peg feeding tube. Give 50 ml water flush ac and pc feeding. Vital Signs Vital Name Observation Time Observation Value Comments Body Weight 2018-02-13 00:00:00 156.0 kg BP Systolic 2018-02-13 00:00:00 118 mm[Hg] BP Diastolic 2018-02-13 00:00:00 80 mm[Hg] Body Temperature 2018-02-13 00:00:00 97 Elizabeth Heart Rate 2018-02-13 00:00:00 88 /min Respiratory Rate 2018-02-13 00:00:00 18 /min Procedures This patient has no known procedures. Reason for Referral This patient has no known reason for referral. Chief Complaint and Reason for Visit This patient event has no chief complaint or reason for visit specified. Results This patient has no known results. Assessments This patient has no known assessments.
--- OUTSIDE RECORDS SUMMARY | 2018-09-01 19:47 | XMS REPORT | Continuity of Care Document ---
:1985 External Reference #:[id number] Author Name Sal Sanchez M.D. Address [address] [place] [address] Care Team Providers Name Role Phone Sal Nation M.D. Primary Care Physician Unavailable Payers Date Identification Numbers Payment Provider Subscriber Policy Number: [id number] Medicaid/I Luisana Treviño Group Name: 1 2 Insurance Primary PayID: [id number] [place] [address] Advance Directives Description No Information Available Problems Date Description Provider Status Onset: 04/02/2011 Perforation of tympanic membrane Sal Sanchez M.D. Active Onset: 04/02/2011 Hearing loss Sal Sanchez M.D. Active Onset: 08/27/2011 Acute suppurative otitis media Sal Sanchez M.D. Active without spontaneous rupture of ear drum Onset: 04/28/2012 Acute upper respiratory infection Sal Sanchez M.D. Active Onset: 03/30/2013 Impacted cerumen Sal Sanchez M.D. Active Onset: 06/01/2013 Infective otitis externa Sal Sanchez M.D. Active Family History Date Family Member(s) Observation Comments Mother Thyroid Disease Paternal Grandfather Diabetes Paternal Grandfather Heart Disease Paternal Grandfather Melanoma Paternal Grandmother Heart Disease Paternal Grandmother Hypertension Social History Type Date Description Comments Sex Unknown Tobacco Use Start: Unknown Never Smoked Cigarettes Tobacco Use Start: Unknown has never smoked cigars Tobacco Use Start: Unknown has never smoked a pipe Smokeless Tobacco has never used smokeless tobacco ETOH Use does not drink alcohol Tobacco Use Start: Unknown Patient has never smoked Smoking Status Reviewed: 08/18/18 Patient has never smoked Allergies, Adverse Reactions, Alerts Date Description Reaction Status Severity Comments 12/22/2004 Clindamycin Active 04/25/2010 Cipro Active 12/10/2017 Bactrim Active Medications Medication Date Status Form Strength Qnty SIG Indications Ordering Provider Alfuzosin HCL Active Tablets ER 10mg 1 by mouth Breiman, ER /0000 24HR every day Sal Beltran M.D. Centrum Adults 00 Active Tablets as directed Breiman, /0000 Sal Beltran M.D. Amy Allergy 00 Active Tablets 180mg 1 by mouth Breiman, /0000 every day Sal Beltran M.D. Lamictal Active Tablets 100mg 1 by mouth Breiman, /0000 at at Sal bedtime Jerardo Beltran Singulair Active Tablets 10mg 1 by mouth Breiman, /0000 every day Sal Beltran M.D. Miralax Active Powder 3350NF as directed Breiman, /0000 Sal Beltran M.D. Prevident 5000 00 Active Paste 1.1-5% As directed Breiman, Sensitive /0000 Sal Beltran M.D. Levetiracetam Active Tablets 500mg 1 by mouth Breiman, /0000 twice a day Sal Beltran M.D. Lactulose Active Solution 10GM/15ML Breiman, Encephalopathy /0000 Sal Beltran M.D. Ranitidine HCL Active Syrup 75mg/5ML Breiman, /0000 Sal Beltran M.D. Tobradex 12/20 Hx Suspension 0.3-0.1% 15ml 5 drops to H60.392 Sal N. left ear Strominge - twice daily r, M.D. 01/16 Tobradex 07/06 Hx Suspension 0.3-0.1% 1unit Change 380.10 Sal N. /2013 s Tobradex to Strominge - as needed in r, M.D. 10/04 either ear. Tobradex 09/21 Hx Suspension 0.3-0.1% 1unit 5 gtts to 382.00 Sal N. /2013 s left ear bid Strominge - for 7 days r, M.D. 09/30 Tobradex 06/01 Hx Suspension 0.3-0.1% 1unit 5 gtts to 380.4 Sal Robertson s right ear Strominge - bid Jerardo tate 09/30 Syringes 1 cc 02/20 Hx 1Case 1 cubic Sal Robertson 27Gauge 09/19 centimeters Strominge Needle - syringes for Jerardo tate 12/10 allergy /2018 injections Amoxicillin/Pot 09/03 Hx Suspension 400-57mg/ 140ml 10 ml per Omar martinez Rec 5ML g-tube bid Zita Fink MD 01/14 Ciprodex 08/12 Hx Suspension 0.3-0.1% 1unit 4 drops in 382.00 Sal Robertson s left ear bid Giselle tate M.D. 01/14 Amoxicillin/Cla 08/12 Hx Tablets 875-125mg 14tab 1 po bid 382.00 Sal porras s witih food Strominge Potassium - Jerardo tate 08/12 Amoxicillin/Pot 08/12 Hx Suspension 400-57mg/ 7days 5 ml po bid 382.00 Sal packer Rec 5ML Strominge Clavulanate Joce tate M.D. 01/14 Amoxicillin 08/12 Hx Suspension 400mg/5ML 7days 5 ml po bid 382.00 Sal NJaz Rec Stromkarely - Jerardo tate 01/14 Tobradex 11/15 Hx Suspension 0.3-0.1% 1unit 5 drops in s right ear Lo Diaz - ad [place] 01/14 Tobradex 09/04 Hx 1unit please start Sal Robertson s the drops 5 Strominge - drops bid Jerardo tate 11/15 for 10 days Fexofenadine 08/29 Hx Tablets 180mg 30tab 1 po qd Sal NJaz HCL s Giselle tate M.D. 03/29 Fexofenadine 04/28 Hx Tablets 180mg 90Day 1 po qd Sal NJaz HCL s Giselle tate M.D. 03/29 Tobradex 04/18 Hx Suspension 0.3-0.1% 1unit 5 gtts to Sal NJaz s affected ear Strominge - bid rJerardo 01/14 Cipro 04/17 Hx Tablets 500mg 20tab 1 po bid 382.00 Sal Robertson s Strominge - rAyaka. 04/25 Culture And 02/28 Hx 382.00 Sal Robertson Sensitivity Strominge Ear Drainage - rJerardo 04/25 Ciprodex 01/23 Hx Suspension 0.3-0.1% 1unit 4 drops Sal N. s right ear Strominge - bid. rJerardo 04/25 Augmentin 11/25 Hx Suspension 400-57mg/ 200cc 10 ml g tube 382.00 Sal N. Rec 5ML bid Strominge - rJerardo 02/18 Ofloxacin 04/19 Hx Solution 0.3% 1unit 5 drops to Sal N. s affected ear Strominge - 2x daily rJerardo 09/28 7-10 days. no improvement after 5 days discontinue and start Ciprodex Ciprodex 12/13 Hx Suspension 0.3-0.1% 2unit RN Sal NJaz s discretion:i Strominge - f after 5 r, MJazDJaz Ofloxacin symptoms continue, start Ciprodex 5 gtts to affected ear for 7-10 days Ciprodex 05/13 Hx Suspension 0.3-0.1% 1unit 4 drops in 382.00 Sal Robertson s left ear Strominge - bid r M.D. 09/28 Minocin 12/03 Hx Unknown /2006 - 05/13 Risperdal 12/03 Hx Tablets 0.5mg /2006 - 06/08 Robitussin 12/03 Hx Unknown - 06/08 Epipen 09/25 Hx Injection 0.3mg inject Sal Robertson patient prn Strominge - anaphylactic r, M.D. 12/04 reaction per instructions with epipen and call 911 Risperdal 12/14 Hx Tablets 0.5mg Unknown /2005 - 06/17 Epipen 2-Lenny 09/20 Hx Injection 0.3mg 1Pack 1 injection prn Strominge - r MJazD. 12/04 Floxin 04/22 Hx Solution 0.3% 1Bott 5 drps in le right ear Strominge - bid r MJazD. 12/04 Lamictal 04/22 Hx Tablets 25mg - 06/08 Miralax 04/22 Hx Powder 5TSP Unknown - 06/08 Valium 04/22 Hx Tablets 4mg 30tab 1/ po prn s vertigo - 12/14 Multivitamins 04/22 Hx Tablets - 06/08 Immunotherapy 04/22 Hx - 06/08 Ciprodex 12/22 Hx Suspension 0.3%;0.1 1unit 4 drops left 384.1 % s ear bid Jerryinge - rJerardo 12/04 Zyrtec 11/23 Hx Syrup 5mg/5 ML 300ml 2 tsp per N g-tube qd Jerryinge - rJerardo 06/08 Zantac 11/23 Hx Syrup 15mg/ml 240ml 4 ml per G-tube bid Devin Oswald 06/08 Jerardo Epipen 10/24 Hx Injection 0.3mg 1unit inject as s needed for Strominge - allergic r M.D. 09/20 reaction /2005 Singulair 10/03 Hx Chewtabs 5mg 60uni 2 per g-tube ts daily Jerryinge - r MBrandon 06/08 Minocycline HCL 00/ Hx Unknown / - 06/08 Centrum Hx Unknown / - 06/08 Ranitidine HCL Hx Syrup 15mg/ml Unknown - 06/08 Polyethylene 00/ Hx Unknown Glycol 1000 / - 06/08 Guiatuss 00/ Hx Unknown / - 06/08 Lamotrigine 00 Hx Unknown Chewable /0000 Dispersible - 06/08 Floxin 00/ Hx Unknown / - 06/08 Tetracycline 00/ Hx Unknown HCL /0000 - 06/08 Epipen Hx Unknown /06/08 Risperdal Hx Unknown / - 03/29 Centrum 00 Hx Breiman, 0000 Sal Beltran M.D. 09/30 Guiatuss / Hx Unknown /09/28 Miralax / Hx Unknown 09/28 Singulair Hx Unknown /09/28 Tetracycline Hx Unknown /03/29 Zyrtec Hx Unknown /09/28 Lamotrigine Hx Unknown 03/29 Ranitidine Hx Unknown /03/29 Aczone Hx 5% as directed Rios, Sal Beltran M.D. 10/17 Augmentin / Hx Unknown 01/14 Polyethylene Hx Unknown Glycol 1000 / - 03/29 Cetirizine HCL Hx Unknown /09/30 Levetiracetam Hx Unknown 03/29 Singulair Hx 10mg 1 po daily Breiman, 0000 Sal Beltran M.D. 10/17 Floxin Otic Hx Unknown 09/30 Sulfamethoxazol Hx Unknown e/Trimethoprim /03/29 Flomax Hx Unknown 09/30 Keppra 00 Hx Tablets 500mg 2 tab q Am 3 Breiman, 0000 tab q PM Sal Beltran M.D. 10/17 Lamictal Hx Tablets 100mg 1 po at hs Breiman, 0000 Sal Beltran M.D. 10/17 Doxycycline 00 Hx Capsules 100mg 14cap take one Breiman, Hyclate s capsule by Sal Beltran M.D. 09/30 Amy Allergy Hx Tablets 180mg 30tab 1 po qd Unknown s - 10/17 Centrum Ultra Hx Unknown Mens / - 10/17 Fleet Glycer Hx Breiman, Suppository / Sal Beltran M.D. 10/04 Zantac 75 Hx Tablets 75mg 5ml x 2 Unknown / - 10/04 Differin Hx Gel 0.1% Patriciaiman, aSl Beltran M.D. 06/01 Erythromycin Hx Solution 2% Rios, Sal Beltran M.D. 10/04 Miralax Powder Hx Breiman, Sal Beltran M.D. 10/04 Ceftin Hx Tablets 500mg 1 po bid x Unknown 28 days - 09/30 Differin Hx 1% Patriciaiman, Sal Beltran M.D. 10/04 Clindamycin/Regan Hx use as Breiman, zoyl Peroxide / directed Sal Beltran M.D. 10/04 Centrum Hx qd Self Multivitamin / - 10/17 Benzaclin Hx Gel qd Patriciaimaclau, Sal Beltran M.D. 10/17 Miralax Hx Patriciaiman, Sal Beltran M.D. 10/04 Macrobid Hx Capsules 100mg 1 po bid Patriciaimaclau, Sal Beltran M.D. 10/04 Nystatin Swish Hx 3Week 100,000u Breiman, And Swallow / Sup nystatin- Sal - 180cc;180 cc Jerardo Beltran 10/04 diphenhydram /2014 ine syrup;60mg hydrocortiso ne;1.5 gm tetracycline ; rinse and spit 10cc qid Biotene Dry Hx Paste PRM Breiman, Mouth Gentle / Sal Beltran M.D. 10/04 Uroxatral Hx Tablets ER 10mg 1 po daily Breiman, 24HR Sal Beltran M.D. 10/04 Alfuzosin HCL Hx Tablets ER 10mg as directed Breiman, ER /0000 24HR Sal Beltran M.D. 10/17 Adapalene Hx Cream 0.1% Rios, Sal Beltran M.D. 10/17 Adapalene Hx Gel 0.1% As Directed Rios, Sal Beltran M.D. 12/10 Benzaclin Hx Gel 1-5% as directed Rios Sal Beltran M.D. 04/15 Erythromycin Hx Gel 2% apply to imaclau, face twice a Sal Beltran M.D. 12/10 Ranitidine HCL Hx Syrup 15mg/ml as directed Rios, Sal Beltran M.D. 12/10 Aquafor Hx As directed Rios Sal Beltran M.D. 12/10 SF 5000 Plus Hx Cream 1.1% Young /0000 YUNG, Fei - 04/15 Immunizations CPT Code Status Date Vaccine Lot # [id number] Given Unknown Prevnar 13 For Intramuscular Use 61737 Given Unknown Influenza Virus Vaccine, 3 Years Of Age And Above, Intramuscular Vital Signs Date Vital Result Comment 08/19/2018 10:49am Weight 152.00 lb Weight 68.947 kg Height 67 inches 5'7" Height in cm's 170.2 cm BMI (Body Mass Index) 23.8 kg/m2 04/15/2018 10:38am Weight 160.00 lb Weight 72.576 kg Height 67 inches 5'7" Height in cm's 170.2 cm BMI (Body Mass Index) 25.1 kg/m2 03/11/2017 3:15pm BP Systolic 118 mmHg BP Diastolic 54 mmHg Heart Rate 66 /min Respiratory Rate 16 /min Weight 160.00 lb Weight 72.576 kg Height 67 inches 5'7" Height in cm's 170.2 cm BMI (Body Mass Index) 25.1 kg/m2 11/05/2016 2:11pm BP Systolic 131 mmHg BP Diastolic 104 mmHg Heart Rate 92 /min Weight 160.00 lb Weight 72.576 kg Height 67 inches 5'7" Height in cm's 170.2 cm BMI (Body Mass Index) 25.1 kg/m2 07/04/2016 2:33pm Respiratory Rate 17 /min Weight 160.00 lb Weight 72.576 kg Height 67 inches 5'7" Height in cm's 170.2 cm BMI (Body Mass Index) 25.1 kg/m2 01/17/2016 2:52pm Respiratory Rate 16 /min Weight 160.00 lb Weight 72.576 kg Height 67 inches 5'7" Height in cm's 170.2 cm BMI (Body Mass Index) 25.1 kg/m2 12/21/2015 4:14pm Weight 160.00 lb Weight 72.576 kg Height 67 inches 5'7" Height in cm's 170.2 cm BMI (Body Mass Index) 25.1 kg/m2 10/18/2015 10:20am Respiratory Rate 17 /min Weight 160.00 lb Weight 72.576 kg Height 67 inches 5'7" Height in cm's 170.2 cm BMI (Body Mass Index) 25.1 kg/m2 07/19/2015 10:40am Weight 160.00 lb Weight 72.576 kg Height 67 inches 5'7" Height in cm's 170.2 cm BMI (Body Mass Index) 25.1 kg/m2 04/12/2015 10:49am BP Systolic 113 mmHg BP Diastolic 84 mmHg Heart Rate 76 /min Respiratory Rate 17 /min Weight 160.00 lb Weight 72.576 kg Height 67 inches 5'7" Height in cm's 170.2 cm BMI (Body Mass Index) 25.1 kg/m2 01/11/2015 11:09am BP Systolic 117 mmHg BP Diastolic 92 mmHg Heart Rate 69 /min Respiratory Rate 17 /min Weight 160.00 lb Weight 72.576 kg Height 67 inches 5'7" Height in cm's 170.2 cm BMI (Body Mass Index) 25.1 kg/m2 10/04/2014 3:01pm BP Systolic 122 mmHg BP Diastolic 83 mmHg Heart Rate 68 /min Respiratory Rate 17 /min Weight 160.00 lb Weight 72.576 kg 07/06/2014 4:18pm BP Systolic 119 mmHg BP Diastolic 92 mmHg Heart Rate 80 /min Respiratory Rate 17 /min Weight 160.00 lb Weight 72.576 kg 04/27/2014 10:34am BP Systolic 115 mmHg BP Diastolic 79 mmHg Heart Rate 75 /min Respiratory Rate 16 /min Weight 160.25 lb Weight 72.689 kg 01/05/2014 10:22am BP Systolic 113 mmHg BP Diastolic 97 mmHg Heart Rate 70 /min Respiratory Rate 16 /min Weight 151.12 lb Weight 68.550 kg 09/30/2013 4:38pm BP Systolic 121 mmHg BP Diastolic 94 mmHg Heart Rate 79 /min Respiratory Rate 16 /min Weight 150.00 lb Weight 68.040 kg Height 67 inches 5'7" Height in cm's 170.2 cm BMI (Body Mass Index) 23.5 kg/m2 09/21/2013 2:48pm BP Systolic 105 mmHg BP Diastolic 75 mmHg Heart Rate 65 /min Respiratory Rate 16 /min Weight 147.00 lb Weight 66.679 kg Height 67 inches 5'7" Height in cm's 170.2 cm BMI (Body Mass Index) 23.0 kg/m2 07/30/2013 10:19am BP Systolic 116 mmHg BP Diastolic 78 mmHg Heart Rate 62 /min Respiratory Rate 16 /min Weight 147.00 lb Weight 66.679 kg Height 67 inches 5'7" Height in cm's 170.2 cm BMI (Body Mass Index) 23.0 kg/m2 06/01/2013 3:14pm BP Systolic 131 mmHg BP Diastolic 92 mmHg Heart Rate 62 /min Respiratory Rate 16 /min 03/30/2013 11:36am BP Systolic 109 mmHg BP Diastolic 88 mmHg Heart Rate 75 /min Respiratory Rate 16 /min Weight 147.00 lb hgt and wgt reported from [facility] Weight 66.679 kg Height 67 inches 5'7" Height in cm's 170.2 cm BMI (Body Mass Index) 23.0 kg/m2 09/03/2012 11:10am BP Systolic 124 mmHg BP Diastolic 81 mmHg Heart Rate 73 /min 04/28/2012 2:49pm Body Temperature 98.6 F 03/18/2012 10:55am BP Systolic 119 mmHg BP Diastolic 86 mmHg Heart Rate 70 /min Respiratory Rate 16 /min 02/19/2012 11:23am BP Systolic 118 mmHg BP Diastolic 70 mmHg Heart Rate 70 /min Respiratory Rate 16 /min 09/28/2009 11:37am BP Systolic 101 mmHg BP Diastolic 73 mmHg Heart Rate 69 /min Respiratory Rate 16 /min 12/13/2008 9:19am BP Systolic 102 mmHg BP Diastolic 68 mmHg Respiratory Rate 17 /min 06/08/2008 9:16am BP Systolic 115 mmHg BP Diastolic 74 mmHg Heart Rate 84 /min Respiratory Rate 16 /min 05/13/2007 10:35am BP Systolic 105 mmHg BP Diastolic 80 mmHg Heart Rate 83 /min Respiratory Rate 10 /min Results Test Date Facility Test Result H/L Range Note Ear Culture 04/28/2012 [facility] Ear Culture (SEE NOTE) 1 c/o Department of Laboratories [place], [place] [id number] [phone] Gram Stain Smear 04/28/2012 [facility] Gram Stain ( SEE NOTE) 2 c/o [place] [address] [phone] Fungus Smear 04/28/2012 [facility] Fungal Smear (SEE NOTE) 3 c/o [place] [address] [phone] Laboratory test 04/28/2012 [facility] Fungal Cult - ( SEE NOTE) 4 finding c/o Department of Laboratories Other Sources [place], [place] [address] [phone] Fungal Cult 04/28/2012 [facility] Fungal Cult - (SEE NOTE) 5 Other Sources c/o Department [place] [address] [phone] Fungal Cult 04/28/2012 [facility] Fungal Cult - (SEE NOTE) 6 Other Sources c/o Department [place] [address] [phone] Laboratory test 01/16/2011 [facility] Rast [place]ittown (SEE NOTE) 7 finding c/o Department of Laboratories [place], [place] [address] [phone] Rast Pineapple (SEE NOTE) 8 Rast Red Raspberry (SEE NOTE) 9 Laboratory test 01/16/2011 [facility] Rast Blueberry ( SEE NOTE) 10 finding c/o Department of Laboratories [place], [place] [address] [phone] Rast Pineapple (SEE NOTE) 11 Rast Red Raspberry (SEE NOTE) 12 Rast [place] (SEE NOTE) 13 Laboratory test 01/16/2011 [facility] Rast Blueberry ( SEE NOTE) 14 finding c/o [place] [address] [phone] Rast Pineapple (SEE NOTE) 15 Rast Red Raspberry (SEE NOTE) 16 Rast [place] (SEE NOTE) 17 Laboratory test 01/16/2011 [facility] Rast Blueberry ( SEE NOTE) 18 finding c/o [place] [address] [phone] Rast Pineapple (SEE NOTE) 19 Rast Red Raspberry (SEE NOTE) 20 Rast [place] (SEE NOTE) 21 Laboratory test 05/17/2005 [facility] Miscellaneous Cult Cornybacterium finding c/o Department of Laboratories & [place] [address] [phone] Other lab test - see note danny 1 RUN DATE: 05/04/12 [facility] LAB LIVE PAGE 1 RUN TIME: [address] [place] [address] Specimen Inquiry Name: LUISANA TREVIÑO : [address]: Sal Sanchez MD Acct: [id number] Unit: [id number] AGE: 26 Location: [facility] Re04/28/12 SEX: M Status: REG REF SPEC: [id number] ALVIN: 04/28/12-[address] [facility] [address]: Sal Sanchez MD REQ: [id number] RECD: 04/29/129 STATUS: COMP _ SOURCE: EAR SPDESC: ORDERED: Ear Culture COMMENTS: Please perform Culture and Sensitivity on right ear drainage,please run fungal culture, please run fungal smear. Toribio. QUERIES: Medent Number [id number] Procedure Result Verified Site Ear Culture Final 05/04/12- 0849 ML Organism 1 STAPHYLOCOCCUS EPIDERMIDIS Quantity 2+ Organism 2 DANNY ALBICANS Quantity 2+ 1. STAPHYLOCOCCUS EPIDERMIDIS M.I.C. RX --------- ------ Penicillin >=0.5 R Ciprofloxacin >=8 R Clindamycin >=8 R Erythromycin >=8 R Gentamicin <=0.5 S Levofloxacin >=8 R Linezolid 1 S * Moxifloxacin 4 I Nitrofurantoin <=16 S Oxacillin >=4 R * Quinupristin/Dalfopristin <=0.25 S Rifampin <=0.5 S Tetracycline >=16 R Vancomycin 1 S CONTINUED ON NEXT PAGE * ML=Testing performed at Main Lab DEPARTMENT OF PATHOLOGY, [address] [place] [address] Jeff Liz M.D. Director [facility] Permit #[id number] RUN DATE: 05/04/12 [facility] LAB LIVE PAGE 2 RUN TIME: [address] [place] [address] Specimen Inquiry Patient: LUISANA TREVIÑO [id number] (Continued) Specimen: [id number] Collected: 04/28/12 Received: 04/29/12 (Continued) Procedure Result Verified Site Ear Culture Final (continued) 05/04/12848 1. STAPHYLOCOCCUS EPIDERMIDIS (continued) M.I.C. RX --------- ------ Imipenem-Deduced R Ampicillin/Sulbactam-Deduced R Cefazolin-Deduced R * These antibiotics are not available in the [facility] Formulary Contact the Microbiology Department for any additional antibiotic reporting. END OF REPORT * ML=Testing performed at Main Lab DEPARTMENT OF PATHOLOGY, [facility] [employer] [place] [address] Jeff Liz M.D. Director [facility] Permit #[id number] 2 RUN DATE: 04/30/12 [facility] LAB LIVE PAGE 1 RUN TIME: [address] [facility] [address] [place], [place] [address] Specimen Inquiry Name: LUISANA TREVIÑO aKt : [address]: Sal Sanchez MD Acct: [id number] Unit: [id number] AGE: 26 Location: [facility] Re04/28/12 SEX: M Status: REG REF SPEC: [id number] ALVIN: 04/28/12-[address] [facility] [address]: Sal Sanchez MD REQ: [id number] RECD: 04/29/12 STATUS: COMP _ SOURCE: [facility] SPDESC: ORDERED: Gram Stain QUERIES: Medent Number [id number] Procedure Result Verified Site Gram Stain Final 04/30/12- 1501 ML 1+ Epithelial Cells No Polys Observed 3+ Gram Positive Coccobacilli 1+ Yeast END OF REPORT * ML=Testing performed at Main Lab DEPARTMENT OF PATHOLOGY, [facility] [employer] [place] [address] Jeff Liz M.D. Director [facility] Permit #[id number] 3 RUN DATE: 04/30/12 [facility] LAB LIVE PAGE 1 RUN TIME: [address] [facility] [address] [place], [place] [address] Specimen Inquiry Name: LUISANA TREVIÑO : [address]: Sal Sanchez MD Acct: [id number] Unit: [id number] AGE: 26 Location: [facility] Re04/28/12 SEX: M Status: REG REF SPEC: [id number] ALVIN: 04/28/12-[address] [facility] [address]: Sal Sanchez MD REQ: [id number] RECD: 04/29/12 STATUS: RES _ SOURCE: EAR SPDESC:RIGHT ORDERED: Fungal Smear/R, Fungal - Other/U COMMENTS: RIGHT EAR DRAINAGE QUERIES: Medent Number [id number] Procedure Result Verified Site Fungal Smear Final 04/30/12- 1513 ML YEAST 1+ Preparation By Direct Smear Fungal Cult - Other Sources PENDING END OF REPORT * ML=Testing performed at Main Lab DEPARTMENT OF PATHOLOGY, [employer] [place] [address] Jeff Liz M.D. Director [facility] Permit #[id number] 4 RUN DATE: 05/06/12 [facility] LAB LIVE PAGE 1 RUN TIME: [address] [place], [place] [address] Specimen Inquiry Name: LUISANA TREVIÑO : [address]: Sal Sanchez MD Acct: [id number] Unit: [id number] AGE: 26 Location: [facility] Re04/28/12 SEX: M Status: REG REF SPEC: [id number] ALVIN: 04/28/12-[address] [facility] [address]: Sal Sanchez MD REQ: [id number] RECD: 04/29/12 STATUS: RES _ SOURCE: EAR SPDESC:RIGHT ORDERED: Fungal Smear/R, Fungal - Other/U COMMENTS: RIGHT EAR DRAINAGE QUERIES: Medent Number [id number] Procedure Result Verified Site Fungal Smear Final 04/30/12- 1513 ML YEAST 1+ Preparation By Direct Smear Fungal Cult - Other Sources Preliminary 05/06/12- 1452 ML Organism 1 YEAST END OF REPORT * ML=Testing performed at Main Lab DEPARTMENT OF PATHOLOGY, [facility] [employer] [place] [address] Jeff Liz M.D. Director [facility] Permit #[id number] 5 RUN DATE: 05/12/12 [facility] LAB LIVE PAGE 1 RUN TIME: [address] [place], [place] [address] Specimen Inquiry Name: LUISANA TREVIÑO : [address]: Sal Sanchez MD Acct: [id number] Unit: [id number] AGE: 26 Location: [facility] Re04/28/12 SEX: M Status: REG REF SPEC: [id number] ALVIN: 04/28/12-[address] [facility] [address]: Sal Sanchez MD REQ: [id number] RECD: 04/29/12 STATUS: RES _ SOURCE: EAR SPDESC:RIGHT ORDERED: Fungal Smear/R, Fungal - Other/U COMMENTS: RIGHT EAR DRAINAGE QUERIES: Medent Number [id number] Procedure Result Verified Site Fungal Smear Final 04/30/12- 1513 ML YEAST 1+ Preparation By Direct Smear Fungal Cult - Other Sources Preliminary 05/12/12- 1125 ML Organism 1 DANNY PARAPSILOSIS END OF REPORT * ML=Testing performed at Main Lab DEPARTMENT OF PATHOLOGY, [facility] [employer] [place] [address] Jeff Liz M.D. Director [facility] Permit #[id number] 6 RUN DATE: 05/19/12 [facility] LAB LIVE PAGE 1 RUN TIME: [address] [facility] [address] [place], [place] [address] Specimen Inquiry Name: HUDSONLUISANA : [address]: Sal Sanchez MD Acct: [id number] Unit: [id number] AGE: 26 Location: [facility] Re04/28/12 SEX: M Status: REG REF SPEC: [id number] ALVIN: 04/28/12-[address] [facility] [address]: Sal Sanchez MD REJuan: [id number] RECD: 04/29/128189 STATUS: COMP _ SOURCE: EAR SPDESC:RIGHT ORDERED: Fungal Smear/R, Fungal - Other/U COMMENTS: RIGHT EAR DRAINAGE QUERIES: Medent Number [id number] Procedure Result Verified Site Fungal Smear Final 04/30/12- 1513 ML YEAST 1+ Preparation By Direct Smear Fungal Cult - Other Sources Final 05/19/12- 1203 ML Organism 1 DANNY PARAPSILOSIS END OF REPORT * ML=Testing performed at Main Lab DEPARTMENT OF PATHOLOGY, [address] [place] [address] Jeff Liz M.D. Director [facility] Permit #[id number] 7 TEST RESULT RETURNED FROM REFERENCE LABORATORY. HARDCOPY REPORT TO BE SENT TO PHYSICIAN(S) OFFICE. 8 TEST RESULT RETURNED FROM REFERENCE LABORATORY. HARDCOPY REPORT TO BE SENT TO PHYSICIAN(S) OFFICE. 9 TEST RESULT RETURNED FROM [facility]FER[facility] LABOR[facility]ORY. HARDCOPY REPORT TO BE SENT TO PHYSICIAN(S) OFFICE. 10 TEST RESULT RETURNED FROM REFERENCE LABORATORY. HARDCOPY REPORT TO BE SENT TO PHYSICIAN(S) OFFICE. 11 TEST RESULT RETURNED FROM REFERENCE LABORATORY. HARDCOPY REPORT TO BE SENT TO PHYSICIAN(S) OFFICE. 12 TEST RESULT RETURNED FROM REFERENCE LABORATORY. HARDCOPY REPORT TO BE SENT TO PHYSICIAN(S) OFFICE. 13 TEST RESULT RETURNED FROM REFERENCE LABORATORY. HARDCOPY REPORT TO BE SENT TO PHYSICIAN(S) OFFICE. 14 TEST RESULT RETURNED FROM REFERENCE LABORATORY. HARDCOPY REPORT TO BE SENT TO PHYSICIAN(S) OFFICE. 15 TEST RESULT RETURNED FROM REFERENCE LABORATORY. HARDCOPY REPORT TO BE SENT TO PHYSICIAN(S) OFFICE. 16 TEST RESULT RETURNED FROM REFERENCE LABORATORY. HARDCOPY REPORT TO BE SENT TO PHYSICIAN(S) OFFICE. 17 TEST RESULT RETURNED FROM [facility]. HARDCOPY REPORT TO BE SENT TO PHYSICIAN(S) OFFICE. 18 TEST RESULT RETURNED FROM [facility]. HARDCOPY REPORT TO BE SENT TO PHYSICIAN(S) OFFICE. 19 TEST RESULT RETURNED FROM [facility]. HARDCOPY REPORT TO BE SENT TO PHYSICIAN(S) OFFICE. 20 TEST RESULT RETURNED FROM [facility]. HARDCOPY REPORT TO BE SENT TO PHYSICIAN(S) OFFICE. 21 TEST RESULT RETURNED FROM [facility]. HARDCOPY REPORT TO BE SENT TO PHYSICIAN(S) OFFICE. Procedures Date Code Description Status 07/29/2018 47987 Intradermals Completed 07/18/2018 55198 Allergy Extract/Prof. Services Completed 04/15/2018 39242 Removal Wax Impaction Completed 03/13/2018 35744 Intradermals Completed 02/28/2018 15833 Allergy Extract/Prof. Services Completed 12/10/2017 18226 Removal Wax Impaction Completed 11/01/2017 47595 Intradermals Completed 10/25/2017 49061 Allergy Extract/Prof. Services Completed 07/23/2017 37976 Removal Wax Impaction Completed 06/26/2017 03053 Intradermals Completed 06/21/2017 57158 Allergy Extract/Prof. Services Completed 03/11/2017 23408 Removal Wax Impaction Completed 02/25/2017 17921 Intradermals Completed 02/15/2017 45164 Allergy Extract/Prof. Services Completed 11/05/2016 03506 Removal Wax Impaction Completed 10/16/2016 16256 Intradermals Completed 10/12/2016 29924 Allergy Extract/Prof. Services Completed 07/04/2016 71683 Removal Wax Impaction Completed 05/24/2016 09696 Intradermals Completed 05/11/2016 14175 Allergy Extract/Prof. Services Completed 12/21/2015 68591 Intradermals Completed 12/16/2015 00500 Allergy Extract/Prof. Services Completed 07/19/2015 23024 Allergy Extract/Prof. Services Completed 07/19/2015 25039 Intradermals Completed 07/19/2015 61750 Intradermals Completed 07/19/2015 47281 Removal Wax Impaction Completed 04/12/2015 25284 Removal Wax Impaction Completed 02/17/2015 32089 Intradermals Completed 02/04/2015 70757 Allergy Extract/Prof. Services Completed 01/11/2015 99220 Removal Wax Impaction Completed 10/04/2014 69327 Removal Wax Impaction Completed 09/28/2014 11176 Intradermals Completed 09/17/2014 14334 Allergy Extract/Prof. Services Completed 04/29/2014 86268 Intradermals Completed 04/27/2014 27550 Removal Wax Impaction Completed 04/23/2014 10895 Allergy Extract/Prof. Services Completed 12/14/2013 48463 Intradermals Completed 12/08/2013 63446 Allergy Extract/Prof. Services Completed 08/11/2013 41282 Intradermals Completed 08/03/2013 42928 Allergy Extract/Prof. Services Completed 07/30/2013 22615 Otoacoustic Emissions, Limited Completed 07/30/2013 31107 Tympanometry Completed 05/06/2013 01867 Intradermals Completed 05/04/2013 04663 Allergy Extract/Prof. Services Completed 03/30/2013 68104 Removal Wax Impaction Completed 01/28/2013 02543 Intradermals Completed 01/20/2013 63429 Prick Test Completed 11/24/2012 44818 Allergy Extract/Prof. Services Completed 09/09/2012 24485 Tympanoplasty W/O Mastoidectomy Completed 07/14/2012 58318 Intradermals Completed 07/09/2012 05111 Allergy Extract/Prof. Services Completed 04/18/2012 86166 Tympanometry Completed 02/15/2012 86483 Intradermals Completed 02/04/2012 31507 Allergy Extract/Prof. Services Completed 08/17/2011 85725 Intradermals Completed 08/13/2011 43205 Allergy Extract/Prof. Services Completed 04/27/2011 85050 Intradermals Completed 04/23/2011 83367 Allergy Extract/Prof. Services Completed 04/02/2011 97729 Tympanometry Completed 02/02/2011 67678 Binocular Microscopy Completed 11/14/2010 12463 Tympanometry Completed 11/10/2010 84118 Intradermals Completed 11/06/2010 04507 Allergy Extract/Prof. Services Completed 06/27/2010 87408 Intradermals Completed 05/29/2010 92920 Allergy Extract/Prof. Services Completed 04/28/2010 57272 Prick Test Completed 10/20/2009 47387 Intradermals Completed 10/17/2009 23585 Allergy Extract/Prof. Services Completed 06/30/2009 02120 Allergy Extract/Prof. Services Completed 06/30/2009 16350 Intradermals Completed 06/16/2009 53450 Intradermals Completed 06/06/2009 95774 Allergy Extract/Prof. Services Completed 04/29/2009 19696 Otoacoustic Emissions, Limited Completed 02/15/2009 67064 Allergy Extract/Prof. Services Completed 02/15/2009 50626 Intradermals Completed 11/11/2008 95924 Intradermals Completed 11/11/2008 10165 Allergy Extract/Prof. Services Completed 07/30/2008 04960 Allergy Extract/Prof. Services Completed 07/30/2008 96660 Intradermals Completed 05/14/2008 93569 Allergy Extract/Prof. Services Completed 05/14/2008 11318 Single Allergen Shot, No Extract Completed 05/14/2008 70697 Intradermals Completed 02/06/2008 17019 Intradermals Completed 02/06/2008 23213 Intradermals Completed 02/06/2008 97028 Allergy Extract/Prof. Services Completed 02/06/2008 62178 Allergy Extract/Prof. Services Completed 11/27/2007 95866 Prick Test Completed 11/27/2007 30059 Prick Test Completed 10/23/2007 81616 Allergy Extract/Prof. Services Completed 10/23/2007 41007 Allergy Extract/Prof. Services Completed 10/23/2007 78264 Single Allergen Shot, No Extract Completed 10/23/2007 33180 Single Allergen Shot, No Extract Completed 10/23/2007 68381 Intradermals Completed 10/23/2007 60252 Intradermals Completed 06/16/2007 44327 Intradermals Completed 06/16/2007 60237 Single Allergen Shot, No Extract Completed 06/16/2007 40586 Allergy Extract/Prof. Services Completed 03/10/2007 01316 Allergy Extract/Prof. Services Completed 03/10/2007 49570 Single Allergen Shot, No Extract Completed 03/10/2007 18545 Intradermals Completed 12/04/2006 24953 Allergy Extract/Prof. Services Completed 12/04/2006 27834 Single Allergen Shot, No Extract Completed 12/04/2006 34390 Intradermals Completed 09/06/2006 56885 Intradermals Completed 09/06/2006 08623 Allergy Injection X2,No Extract Completed 09/06/2006 90608 Allergy Extract/Prof. Services Completed 06/03/2006 04846 Allergy Extract/Prof. Services Completed 06/03/2006 08514 Allergy Injection X2,No Extract Completed 06/03/2006 02744 Intradermals Completed 03/04/2006 75994 Allergy Extract/Prof. Services Completed 03/04/2006 95470 Allergy Injection X2,No Extract Completed 03/04/2006 69014 Intradermals Completed 12/07/2005 56846 Intradermals Completed 12/07/2005 62922 Allergy Injection X2,No Extract Completed 12/07/2005 31642 Allergy Extract/Prof. Services Completed 09/14/2005 96333 Allergy Extract/Prof. Services Completed 09/14/2005 51256 Allergy Injection X2,No Extract Completed 09/14/2005 09816 Intradermals Completed 06/12/2005 15614 Allergy Extract/Prof. Services Completed 06/12/2005 96776 Allergy Injection X2,No Extract Completed 06/12/2005 83132 Intradermals Completed 12/22/2004 96652 Intradermals Completed 12/22/2004 52564 Allergy Injection X2,No Extract Completed 12/22/2004 75145 Allergy Extract/Prof. Services Completed 10/24/2004 65101 Allergy Extract/Prof. Services Completed 10/24/2004 63684 Allergy Injection X2,No Extract Completed 10/24/2004 15407 Intradermals Completed 08/24/2004 86068 Allergy Extract/Prof. Services Completed 08/24/2004 52299 Allergy Injection X2,No Extract Completed 08/24/2004 69676 Intradermals Completed 06/23/2004 77933 Intradermals Completed 06/23/2004 41295 Allergy Injection X2,No Extract Completed 06/23/2004 79185 Allergy Extract/Prof. Services Completed 04/14/2004 16232 Allergy Extract/Prof. Services Completed 04/14/2004 85430 Allergy Injection X2,No Extract Completed 04/14/2004 68888 Intradermals Completed 02/14/2004 16525 Allergy Extract/Prof. Services Completed 02/14/2004 40054 Allergy Injection X2,No Extract Completed 02/14/2004 13081 Intradermals Completed 12/20/2003 61732 Intradermals Completed 12/20/2003 72566 Allergy Injection X2,No Extract Completed 12/20/2003 66846 Allergy Extract/Prof. Services Completed 10/20/2003 56011 Allergy Extract/Prof. Services Completed 10/20/2003 55631 Allergy Injection X2,No Extract Completed 10/20/2003 31380 Intradermals Completed 08/12/2003 36487 Allergy Extract/Prof. Services Completed 08/12/2003 69629 Allergy Injection X2,No Extract Completed 08/12/2003 23655 Intradermals Completed 05/20/2003 35011 Allergy Extract/Prof. Services Completed 05/20/2003 55328 Allergy Injection X2,No Extract Completed 05/20/2003 35645 Intradermals Completed Encounters Type Date Location Provider Dx Diagnosis Office Visit 08/19/2018 [place],After Sal Dawson1.23 Impacted cerumen, 10:45a 07/15/07 Jerardo Sanchez bilateral Office Visit 04/09/2016 [place],After Sal Robertson H60.392 Other infective 2:15p 07/15/07 Jerardo Sanchez otitis externa, left ear Office Visit 01/17/2016 [place],After Sal Robertson H60.392 Other infective 2:45p 07/15/07 Jerardo Sanchez otitis externa, left ear Office Visit 12/21/2015 [place],After Sal Robertson H60.391 Other infective 3:30p 07/15/07 Jerardo Sanchez otitis externa, right ear Office Visit 10/18/2015 [place],After Sal Robertson H61.23 Impacted cerumen, 10:45a 07/15/07 Jerardo Sanchez bilateral Office Visit 07/20/2014 [place],After Sal Robertson 380.10 Otitis Externa 1:45p 07/15/07 Jerardo Sanchez Acute Office Visit 07/06/2014 [place],After Sal Robertson 380.10 Otitis Externa 4:00p 07/15/07 Jerardo Sanchez Acute Office Visit 01/05/2014 [place],After Sal Robertson 382.00 Otitis Media, Acute 10:15a 07/15/07 Jerardo Sanchez Suppurative Office Visit 09/30/2013 [place],After Sal Robertson 382.00 Otitis Media, Acute 4:30p 07/15/07 Jerardo Sanchez Suppurative Office Visit 09/21/2013 [place],After Sal Robertson 382.00 Otitis Media, Acute 2:45p 07/15/07 Jerardo Sanchez Suppurative Office Visit 07/30/2013 [place],After Omar Blanchard 380.4 Impacted Cerumen / 10:30a 07/15/07 MD Emily Wax 384.20 Perforation Of Tympanic Membrane/Unspecified Office Visit 06/01/2013 3:15p [place],After Sal Robertson 380.4 Impacted 07/15/07 Jerardo Sanchez Cerumen / Wax 380.10 Otitis Externa Acute Office Visit 01/27/2013 4:00p [place],After 07/15/07 [place], 477.8 Rhinitis , Bernie PHOTOLETTERING MACHINE OPERATOR Perennial, Allergy 477.0 Rhinitis, Seasonal -Allergic Due To Pollen Office 01/14/2013 [place],After Omar Blanchard 384.20 Perforation Of Tympanic Visit 10:30a 07/15/07 MD Emily Membrane/Unspecified Office 11/26/2012 [place],After Omar Blanchard 306.8 Bruxism Visit 1:45p 07/15/07 MD Emily Office 08/12/2012 [place],After Sal Robertson 382.00 Otitis Media, Acute Visit 10:15a 07/15/07 Mehnaz Sanchez M.D. Office 07/31/2012 [place],After Omar Blanchard 384.20 Perforation Of Tympanic Visit 3:30p 07/15/07 MD Emily Membrane/Unspecified Office 07/14/2012 [place],After Sal Robertson 384.20 Perforation Of Tympanic Visit 2:30p 07/15/07 Janeen Sanchez/Ines Kurtz 382.00 Otitis Media, Acute Suppurative Office Visit 07/01/2012 [place],After Sal Robertson 382.00 Otitis Media, 4:00p 07/15/07 Jerardo Sanchez Acute Suppurative 384.20 Perforation Of Tympanic Membrane/Unspecified 477.9 Rhinitis, Allergic Office Visit 05/12/2012 [place],After Sal Robertson 382.00 Otitis Media, 1:45p 07/15/07 Jerardo Sanchez Acute Suppurative 384.20 Perforation Of Tympanic Membrane/Unspecified Office 04/28/2012 [place],After Sal Robertson 465.9 Infection Of Upper Visit 2:15p 07/15/07 Antonietta Sanchez M.D. Acute/Unspecified 382.00 Otitis Media, Acute Suppurative Office 04/18/2012 [place],After Sal Robertson 384.20 Perforation Of Tympanic Visit 1:45p 07/15/07 Laura Membrane/Unspecified M.DJaz 382.00 Otitis Media, Acute Suppurative Office Visit 03/18/2012 [place],After Sal Robertson 382.00 Otitis Media, 11:15a 07/15/07 Jerardo Sanchez Acute Suppurative 381.19 Otitis Media Chronic Serous Other Office Visit 02/19/2012 [place],After Sla Robertson 382.00 Otitis Media, 11:15a 07/15/07 Jerardo Sanchez Acute Suppurative 384.20 Perforation Of Tympanic Membrane/Unspecified Office Visit 09/25/2011 [place],After Sal Robertson 382.00 Otitis Media, 2:30p 07/15/07 Jerardo Sanchez Acute Suppurative 384.20 Perforation Of Tympanic Membrane/Unspecified Office Visit 08/27/2011 [place],After Sal Robertson 382.00 Otitis Media, 2:45p 07/15/07 Jerardo Sanchez Acute Suppurative 384.20 Perforation Of Tympanic Membrane/Unspecified Office Visit 08/15/2011 4:30p [place],After Sal Robertson 381.19 Otitis Media 07/15/07 Jerardo Sanchez Chronic Serous Other 384.20 Perforation Of Tympanic Membrane/Unspecified Office Visit 05/18/2011 [place],After Stephenie, 380.10 Otitis Externa 11:30a 07/15/07 Bernie PHOTOLETTERING MACHINE OPERATOR Acute Office Visit 04/02/2011 [place],After Sal Robertson 384.20 Perforation Of 10:30a 07/15/07 Rhona Sanchez M.D. Membrane/Unspecif ied 389.9 Hearing Loss, Unspecified Office 02/27/2011 [place],After Sal Robertson 384.20 Perforation Of Tympanic Visit 2:30p 07/15/07 Laura Membrane/Unspecified M.DJaz 995.60 Anaphylactic Shock, From Unspecified Food Office Visit 02/02/2011 [place],After Stephenie 995.60 Anaphylactic 2:30p 07/15/07 Bernie PHOTOLETTERING MACHINE OPERATOR Shock, From Unspecified Food 380.4 Impacted Cerumen / Wax Office Visit 01/16/2011 [place],After Sal Robertson 995.60 Anaphylactic 3:15p 07/15/07 Jerardo Sanchez Shock, From Unspecified Food Office Visit 11/14/2010 [place],After Bernie Casiano 384.20 Perforation Of 10:30a 07/15/07 PHOTOLETTERING MACHINE OPERATOR Tympanic Membrane/Unspecif ied 381.19 Otitis Media Chronic Serous Other Office 09/26/2010 [place],After Sal Robertson 384.20 Perforation Of Tympanic Visit 10:30a 07/15/07 Laura Membrane/Unspecified M.D. 389.9 Hearing Loss, Unspecified Office 06/27/2010 [place],After Sal Robertson 384.20 Perforation Of Tympanic Visit 10:30a 07/15/07 Laura, Membrane/Unspecified M.D. Office 04/25/2010 [place],After Sal Robertson 382.00 Otitis Media, Acute Visit 10:15a 07/15/07 Laura Suppurative M.D. 384.20 Perforation Of Tympanic Membrane/Unspecified 381.19 Otitis Media Chronic Serous Other Office Visit 04/17/2010 [place],After Sal Robertson 382.00 Otitis Media, 11:00a 07/15/07 Jerardo Sanchez Acute Suppurative 384.20 Perforation Of Tympanic Membrane/Unspecified Office Visit 02/28/2010 [place],After Sal Robertson 382.00 Otitis Media, 2:15p 07/15/07 Jerardo Sanchez Acute Suppurative 384.20 Perforation Of Tympanic Membrane/Unspecified Office 12/27/2009 [place],After Sal Robertson 384.20 Perforation Of Tympanic Visit 10:15a 07/15/07 Laura, Membrane/Unspecified M.D. 386.55 Hearing Loss, Unilateral Office Visit 12/13/2009 [place],After Sal Robertson 384.1 Myringitis, 10:45a 07/15/07 Jerardo Sanchez Chronic Office Visit 11/30/2009 [place],After Sal Robertson 382.00 Otitis Media, 4:15p 07/15/07 Jerardo Sanchez Acute Suppurative 372.39 Conjunctivitis Other 681.00 Cellulitis & Abscess Finger Unspec Office 11/25/2009 [place],After Yoni 384.20 Perforation Of Tympanic Visit 3:15p 07/15/07 Ronnie YORK Membrane/Unspecified 382.00 Otitis Media, Acute Suppurative Office 10/31/2009 [place],After Sal Robertson 384.20 Perforation Of Tympanic Visit 11:00a 07/15/07 Laura Membrane/Unspecified M.D. 382.00 Otitis Media, Acute Suppurative 386.55 Hearing Loss, Unilateral 780.57 Apnea, Sleep Not Elsewhere Classified /Unspecified Office 09/28/2009 [place],After Stephenie 384.20 Perforation Of Tympanic Visit 11:30a 07/15/07 Bernie HECTOR Membrane/Unspecified 389.10 Hearing Loss, Sensorineural/Unspecified Office 07/25/2009 [place],After Sal Robertson 384.20 Perforation Of Tympanic Visit 9:15a 07/15/07 Laura Membrane/Unspecified M.D. 381.10 Otitis Media, Chronic Simple Or Unspecified 389.10 Hearing Loss, Sensorineural/Unspecified Office 01/17/2009 [place],After Sal Robertson 384.20 Perforation Of Tympanic Visit 9:45a 07/15/07 Laura Membrane/Unspecified M.D. 384.1 Myringitis, Chronic Office 12/13/2008 [place],After Sal Robertson 384.20 Perforation Of Tympanic Visit 9:00a 07/15/07 Laura Membrane/Unspecified M.D. 384.1 Myringitis, Chronic 477.8 Rhinitis, Perennial, Allergy 389.9 Hearing Loss, Unspecified Office 06/08/2008 [place],After Sal Robertson 384.20 Perforation Of Tympanic Visit 9:00a 07/15/07 Laura Membrane/Unspecified M.D. 382.00 Otitis Media, Acute Suppurative Office Visit 12/09/2007 [place],After Sal Robertson 477.0 Rhinitis, 10:45a 07/15/07 Jerardo Sanchez Seasonal -Allergic Due To Pollen 477.8 Rhinitis, Perennial, Allergy 384.20 Perforation Of Tympanic Membrane/Unspecified 384.1 Myringitis, Chronic Office 05/22/2007 [place],After Stephenie 384.20 Perforation Of Tympanic Visit 2:00p 07/15/07 Bernie PHOTOLETTERING MACHINE OPERATOR Membrane/Unspecified 382.00 Otitis Media, Acute Suppurative Office Visit 05/13/2007 [place],After Stephenie 382.00 Otitis Media, 10:30a 07/15/07 Bernie PHOTOLETTERING MACHINE OPERATOR Acute Suppurative Office Visit 12/17/2006 [place],After Sal Robertson 384.20 Perforation Of 9:00a 07/15/07 Rhona Sanchez.DJaz Membrane/Unspecif ied 477.0 Rhinitis, Seasonal -Allergic Due To Pollen Office Visit 06/18/2006 [place],After Sal Robertson 381.10 Otitis Media, 9:15a 07/15/07 Jerardo Sanchez Chronic Simple Or Unspecified 477.0 Rhinitis, Seasonal -Allergic Due To Pollen Office Visit 12/17/2005 [place],After Sal Robertson 381.10 Otitis Media, 9:15a 07/15/07 Jerardo Sanchez Chronic Simple Or Unspecified 477.0 Rhinitis, Seasonal -Allergic Due To Pollen Office Visit 06/26/2005 [place],After Sal Robertson 477.0 Rhinitis, 9:00a 07/15/07 Jerardo Sanchez Seasonal -Allergic Due To Pollen 381.10 Otitis Media, Chronic Simple Or Unspecified 384.20 Perforation Of Tympanic Membrane/Unspecified Office Visit 05/02/2005 [place],After Sal Robertson 382.00 Otitis Media, 3:15p 07/15/07 Jerardo Sanchez Acute Suppurative 477.8 Rhinitis, Perennial, Allergy Office Visit 04/23/2005 [place],After Sal Robertson 382.00 Otitis Media, 5:30p 07/15/07 Ayaka Sanchez. Acute Suppurative Office Visit 12/22/2004 [place],After Dereje Beltran 477.0 Rhinitis, 9:30a 07/15/07 Jerardo Oswald Seasonal -Allergic Due To Pollen 477.8 Rhinitis, Perennial, Allergy 384.1 Myringitis, Chronic 384.20 Perforation Of Tympanic Membrane/Unspecified Office Visit 06/23/2004 10:30a [place],After 07/15/07 Dereje Martinez7.8 Darek Jordan M.D. Perennial, Allergy 384.20 Perforation Of Tympanic Membrane/Unspecified Office Visit 12/20/2003 9:00a [place],After 07/15/07 Dereje Martinez7.8 Darek Jordan M.D. Perennial, Allergy 382.00 Otitis Media, Acute Suppurative 477.0 Rhinitis, Seasonal -Allergic Due To Pollen 384.20 Perforation Of Tympanic Membrane/Unspecified Office Visit 06/24/2003 4:00p [place],After 07/15/07 Dereje Martinez7.8 Darek Jordan M.D. Perennial, Allergy 381.10 Otitis Media, Chronic Simple Or Unspecified 384.20 Perforation Of Tympanic Membrane/Unspecified Plan of Treatment 08/19/2018 - Sal Sanchez M.D.H61.23 Impacted cerumen, bilateralComments:The patient's ears looked quite good today. No intervention was needed.Follow up:FU 6 months
[2018-09-01 20:21] LABS: Influenza A Molecular POSITIVE (Negative)
[2018-09-01] MEDS ORDERED: Ibuprofen ADULT LIQ* 600 MG/30 ML UDC PO ONE (22:08)
[2018-09-01] MEDS ORDERED: Acetaminophen ADULT LIQ* 650 MG/20.3 ML UDC PO ONE (22:08)
[2018-09-01] MEDS ORDERED: Oseltamivir SUSP 75 MG dose* 75 MG/12.5 ML ORAL.SYRIN PO ONE (22:09)
[2018-09-01] MEDS ORDERED: levETIRAcetam LIQ* 500 MG/5 ML UDC PO ONE (22:09)
[2018-09-01] MEDS ORDERED: Albuterol/Ipratropium NEB.SOL* Albuterol 2.5 MG/Ipratropium 0.5 MG 3 ML INH ONE (23:09)
[2018-09-01] MEDS ORDERED: Albuterol 2.5 MG/3 ML NEB.SOL* (0.083%) INH ONE (23:10)
[2018-09-01] MEDS ORDERED: NS 0.9% 1000 ML** 2,000 ML IV ONE (23:18)
[2018-09-01 23:44] LABS: ABS Basophils 0 10^3/ul (0-0.2); ABS Eosinophils 0 10^3/ul (0-0.6); ABS Lymphocytes 0.6 10^3/ul (1.0-4.8); ABS Monocytes 0.5 10^3/ul (0-0.8); ABS Neutrophils 2.5 10^3/ul (1.5-7.7); ABS Nucleated RBC 0 10^3/ul; Eosinophil % 0.3 %; Hematocrit 40 % (42-52); Hemoglobin 13.4 g/dl (14.0-18.0); Lymphocyte % 16.1 %; Mean Corpuscular HGB Conc 34 g/dl (31-36); Mean Corpuscular Hemoglobin 32 pg (27-31); Mean Corpuscular Volume 93 fL (80-94); Mean Platelet Volume 8.2 fL (7.4-10.4); Nucleated Red Blood Cells % 0.1; Platelet Count 126 10^3/ul (150-450); Red Blood Count 4.23 10^6/ul (4.00-5.40); Red Cell Distribution Width 14 % (10.5-15); White Blood Count 3.6 10^3/ul (3.5-10.8)
[2018-09-01 23:53] LABS: Activated Partial Thrombo Time 35.2 seconds (26.0-36.3); INR 1.21 (0.77-1.02)
[2018-09-01 23:59] LABS: Albumin 4.1 g/dL (3.2-5.2); Albumin/Globulin Ratio 1.6 (1-3); BUN/Creatinine Ratio 16.1 (8-20); C Reactive Protein 22.25 mg/L (<8.01); Calcium 9.5 mg/dL (8.6-10.3); EGFR African American 114.7 (>60); EGFR Non-African American 94.8 (>60); Globulin 2.5 g/dL (2-4); Potassium 3.9 mmol/L (3.5-5.0); Total Bilirubin 0.4 mg/dL (0.2-1.0); Total Protein 6.6 g/dL (6.4-8.9)
[2018-09-02] MEDS ORDERED: Iohexol 350* (CONTRAST) 500 ML MDV IV ONE (00:21)
[2018-09-02] MEDS ORDERED: diPHENhydraMINE PO* 25 MG PO PRN (03:01)
[2018-09-02] MEDS ORDERED: Acetaminophen ADULT LIQ* 650 MG/20.3 ML UDC G TUBE PRN ×2 (03:01→14:35)
[2018-09-02] MEDS ORDERED: Ibuprofen PED LIQ 100 MG/5 ML UDC G TUBE PRN (03:01)
[2018-09-02] MEDS ORDERED: Lactulose* 15 ML UDC PO PRN (03:01)
[2018-09-02] MEDS ORDERED: Sodium Phosphate ADULT ENEMA* 118 ml bottle PR PRN (03:01)
[2018-09-02] MEDS ORDERED: ADAPALENE 0.1% TOPICAL PRN (03:01)
--- NOTE | 2018-09-02 03:31 | ADMNOTE ---
Subjective Date of Service: 09/02/18 Interval History: HISTORY AND PHYSICAL PCP: Rios CC: fever HPI: Patient is a 33 year old man with cerebral palsy, lives in [place] [facility]. At home today he was noted to be coughing, and had fever to 102. He was noted to be acting differently in last 3 days. He cannot give history, that was obtained from mother, father, and aide from [facility]. Today tremors were noted in both hands and feet. In past, he has had seizures when he has an infection such as UTI. At baseline he eats food, but has meds and some liquid through G-tube. He is non -verbal, but can make his needs known. In ER, had hypoxia to 87% range on RA, does not normally need O2 at home. Family History: Findings - mother w/ thyroid disease, father with arrhythmia, brother with ADHD and tourette's Social History: Findings - Single, lives in [place] [facility], no children. No tobacco /alcohol/drugs. Father is physician at this hospital Past Medical History: Findings - PMH: cerebral palsy, seizure d/o, GERD, neurogenic bladder, requires cath 4x/day; PSH: tympanostomy tubes, tonsillectomy , Hay fundoplication, PEG tube Review of Systems - Measurements Intake and Output: Intake and Output Last 24 Hours 08/30/18 08/31/18 09/01/18 09/02/18 06:59 06:59 06:59 06:59 Weight 68.039 kg - Review of Systems General Comments: patient cannot complete ROS due to non-verbal status Objective Active Medications: Adapalene (Adapalene 0.1% Gel (Nf)) applic TOPICAL BEDTIME PRN PRN Reason: FACE Alfuzosin HCl (Uroxatral (Nf)) 10 mg PO DAILY MARY Diphenhydramine HCl (Benadryl Po*) 25 mg PO BEDTIME PRN PRN Reason: INSOMNIA Ibuprofen (Motrin Liq*) 400 mg G TUBE Q6HR PRN PRN Reason: PAIN Lactulose (Lactulose*) 15 ml PO QID PRN PRN Reason: CONSTIPATION Lamotrigine (Lamictal Tab(*)) 100 mg G TUBE QPM MARY Non-Formulary Medication (Acetaminophen [Acetaminophen]) 325 mg G TUBE Q4HR PRN PRN Reason: PAIN Non-Formulary Medication (Levetiracetam [Levetiracetam]) 1,500 mg G TUBE BID MARY Polyethylene Glycol/Electrolytes (Miralax) gm G TUBE QAM MARY Ranitidine HCl (Zantac Soln* Oralsyr (Nf)) 150 mg G TUBE DAILY MARY Sodium Biphosphate/Sodium Phosphate (Fleet Enema*) bottle PA DAILY PRN PRN Reason: CONSTIPATION Vital Signs - 8 hr 09/01/18 09/01/18 09/01/18 19:30 21:36 21:48 Temperature 38.2 C Pulse Rate 102 93 93 Respiratory 16 Rate Blood Pressure 114/63 124/71 (mmHg) O2 Sat by Pulse 93 97 92 Oximetry 09/01/18 09/01/18 09/01/18 22:00 22:12 22:27 Temperature Pulse Rate 93 107 95 Respiratory Rate Blood Pressure 117/74 117/71 (mmHg) O2 Sat by Pulse 90 91 91 Oximetry 09/01/18 09/01/18 09/01/18 22:42 22:58 23:00 Temperature Pulse Rate 93 99 95 Respiratory Rate Blood Pressure 126/76 119/74 (mmHg) O2 Sat by Pulse 91 90 88 Oximetry 09/01/18 09/01/18 09/01/18 23:13 23:23 23:28 Temperature Pulse Rate 97 81 89 Respiratory 16 Rate Blood Pressure 115/63 108/56 (mmHg) O2 Sat by Pulse 92 98 96 Oximetry 09/01/18 09/01/18 09/02/18 23:36 23:47 00:00 Temperature Pulse Rate 98 97 115 Respiratory 14 Rate Blood Pressure (mmHg) O2 Sat by Pulse 92 100 94 Oximetry 09/02/18 09/02/18 09/02/18 01:00 01:28 02:00 Temperature Pulse Rate 101 97 96 Respiratory Rate Blood Pressure 98/44 (mmHg) O2 Sat by Pulse 86 91 91 Oximetry Oxygen Devices in Use Now: None Appearance: awake, alert, tongue protruding Eyes: No Scleral Icterus Ears/Nose/Mouth/Throat: Mucous Membranes Moist Neck: NL Appearance and Movements; NL JVP Respiratory: Symmetrical Chest Expansion and Respiratory Effort, Clear to Auscultation Cardiovascular: NL Sounds; No Murmurs; No JVD, RRR Abdominal: NL Sounds; No Tenderness; No Distention, No Hepatosplenomegaly, - - G -tube clean/dry/intact Lymphatic: No Cervical Adenopathy Extremities: No Edema Skin: No Rash or Ulcers Neurological: - - alert, interactive, tremors present at all times in hands, feet Lines/Tubes/Other Access: Clean, Dry and Intact Peripheral IV Nutrition: Taking PO's Result Diagrams: 09/01/18 23:32 09/01/18 23:32 Microbiology and Other Data: Microbiology 09/01/18 19:39 Influenza Types A,B Antigen - Final Nasal Specimen received for Influenza A/B Molecular testing Diagnostic Imaging: CXR: normal CTA chest: no infiltrates, no PEs. Assess/Plan/Problems-Billing Assessment: 33 year old with CP, here w/ influenza A and hypoxia. - Patient Problems (1) Influenza A Current Visit: Yes Status: Acute Priority: High Code(s): J10.1 - FLU DUE TO OTH IDENT INFLUENZA VIRUS W OTH RESP MANIFEST SNOMED Code(s): 066288673 Comment: -Will need overnight OBV stay due to hypoxia -started on tamiflu -O2 to be supplemented w/ nursing assistance. (2) Seizure disorder Current Visit: No Status: Chronic Priority: Medium Code(s): G40.909 - EPILEPSY, UNSP, NOT INTRACTABLE, WITHOUT STATUS EPILEPTICUS SNOMED Code(s): 098599737 Comment: -higher risk of seizure when febrile -continue two anticonvulsants -seizure precautions (3) DVT prophylaxis Current Visit: No Status: Acute Priority: Low Onset Date: 10/15/14 Code( s): GSN9518 - SNOMED Code(s): 378617563 Comment: will mobilize, low risk Status and Disposition: observation status
[2018-09-02] MEDS ORDERED: lamoTRIgine TAB(*) 100 MG G TUBE ONE (04:15)
[2018-09-02 05:39] LABS: Urine Appearance Clear; Urine Bacteria Absent (Absent); Urine Bilirubin Negative (Negative); Urine Blood Negative (Negative); Urine Color Amber; Urine Glucose Negative (Negative); Urine Ketones Negative (Negative); Urine Nitrite Positive (Negative); Urine Protein 1+(30 mg/dL) (Negative); Urine Red Blood Cell Absent (Absent); Urine Specific Gravity > 1.060 (1.010-1.030); Urine Squamous Epithelial Cell Present (Absent); Urine Urobilinogen Negative (Negative); Urine White Blood Cell Absent (Absent)
--- NOTE | 2018-09-02 06:29 | ED ---
HPI Febrile Illness - HPI Summary HPI Summary: The patient a 33 year old male who is presenting to the [facility] with a complaints of chest congestion, and cough. The patient's family member dictated because the patient is non-verbal. The patient has been staying home with a roommate that also has the flu. He stays at the [facility]. Prior to [facility] arrival the patient's oxygen level was dropping to 78. The pain is rated to be a 0/10 in severity. Symptoms alleviated by nothing. Symptoms aggravated by nothing. The onset of these symptoms and the drop in O2 Saturation was 0900 on 07/01/19. - History of Current Complaint Chief Complaint: EDFluSymptoms Time Seen by Provider: 09/01/18 21:56 Hx Obtained From: Patient Timing: Constant Current Severity: None Pain Intensity: 0 Pain Scale Used: 0-10 Numeric Aggravating Factors: Nothing Alleviating Factors: Nothing Associated Signs and Symptoms: Cough, Other: - Chest congestion - Additional Pertinent History Primary Care Physician: LINDSAY - Allergy/Home Medications Allergies/Adverse Reactions: Allergies Allergy/AdvReac Type Severity Reaction Status Date / Time ciprofloxacin Allergy Severe Anaphylatic Verified 09/01/18 19:37 Shock clindamycin Allergy Rash Verified 09/01/18 19:37 sulfamethoxazole Allergy Rash And Verified 09/01/18 19:37 [From Bactrim] Itching trimethoprim [From Bactrim] Allergy Rash And Verified 09/01/18 19:37 Itching ENVIRONMENTAL/SEASONAL Allergy Unknown Uncoded 09/01/18 19:37 HAYFEVER Reaction Details PMH/Surg Hx/FS Hx/Imm Hx Endocrine/Hematology History: Denies: Hx Diabetes, Hx Thyroid Disease Cardiovascular History: Denies: Hx Congestive Heart Failure, Hx Hypertension Respiratory History: Reports: Hx Seasonal Allergies, Hx Sleep Apnea - possible Denies: Hx Asthma, Hx Chronic Obstructive Pulmonary Disease (COPD) Comment Only: Other Respiratory Problems/Disorders - G-BUTTON FOR MEDICATIONS GI History: Reports: Hx Gastroesophageal Reflux Disease Denies: Hx Ulcer History: Reports: Other Problems/Disorders - frequent UTIs, neurogenic bladder Denies: Hx Renal Disease Sensory History: Denies: Hx Cataracts, Hx Contacts or Glasses, Hx Macular Degeneration, Hx Vision Problem, Hx Deafness, Hx Hearing Aid, Other Sensory Impairments Opthamlomology History: Denies: Hx Cataracts, Hx Contacts or Glasses, Hx Macular Degeneration, Hx Vision Problem, Other Sensory Impairments Neurological History: Reports: Hx Seizures - history of, control with medication , Other Neuro Impairments/Disorders - NON-VERBAL, CP - Surgical History Surgery Procedure, Year, and Place: GASTROPLASTY AT AGE 10, HERN[place], ENT surgery Hx Anesthesia Reactions: Yes - PROBLEMS WITH POST OP PAIN AFTER TONSILLECTOMY AND FUNDIPLICATION Infectious Disease History: No Infectious Disease History: Denies: Hx Clostridium Difficile, Hx Hepatitis, Hx Human Immunodeficiency Virus (HIV), Hx of Known/Suspected MRSA, Hx Shingles, Hx Tuberculosis, Hx Known/ Suspected VRE, Hx Known/Suspected VRSA, History Other Infectious Disease, Traveled Outside the [place] in Last 30 Days - Family History Known Family History: Positive: Unknown Family History: LEVEL 5 CAVEAT secondary to MR. - Social History Occupation: Disabled Lives: Shelter - [employer] Alcohol Use: None Hx Substance Use: No Substance Use Type: Reports: None Hx Tobacco Use: No Smoking Status (MU): Never Smoked Tobacco Review of Systems Constitutional: Negative Eyes: Negative ENT: Negative Cardiovascular: Negative Respiratory: Other - Chest Congestion Positive: Cough, Other - Low O2 Saturation Gastrointestinal: Negative Genitourinary: Negative Musculoskeletal: Negative Skin: Negative Neurological: Other - Nonverbal Psychological: Normal All Other Systems Reviewed And Are Negative: Yes Physical Exam - Summary Physical Exam Summary: VITAL SIGNS: Reviewed. GENERAL: Patient is a well-developed and nourished (MALE) who is lying comfortable in the stretcher. Patient is not in any acute respiratory distress. Patient is nonverbal; HEAD AND FACE: Coated dry tongue EYES: PERRLA, EOMI x 2, No injected conjunctiva, no nystagmus. EARS: Hearing grossly intact. Ear canals and tympanic membranes are within normal limits. MOUTH: Oropharynx within normal limits. NECK: Supple, trachea is midline, no adenopathy, no JVD, no carotid bruit, no c- spine tenderness, neck with full ROM. CHEST: Symmetric, no tenderness at palpation LUNGS: Clear to auscultation bilaterally. No wheezing or crackles. CVS: Regular rate and rhythm, S1 and S2 present, no murmurs or gallops appreciated. ABDOMEN: Soft, non-tender. No signs of distention. No rebound no guarding, and no masses palpated. Bowel sounds are normal. He has koko button EXTREMITIES: FROM in all major joints, no edema, no cyanosis or clubbing. NEURO: Alert and oriented x 3. No acute neurological deficits. Speech is normal and follows commands. SKIN: Dry and warm Triage Information Reviewed: Yes Vital Signs On Initial Exam: Initial Vitals Temp Pulse Resp BP Pulse Ox 100.8 F 102 16 114/63 93 09/01/18 19:30 09/01/18 19:30 09/01/18 19:30 09/01/18 19:30 09/01/18 19:30 Vital Signs Reviewed: Yes Diagnostics - Vital Signs Vital Signs Temp Pulse Resp BP Pulse Ox 09/02/18 02:33 91 120/62 93 09/02/18 02:00 96 91 09/02/18 01:28 97 98/44 91 09/02/18 01:00 101 86 09/02/18 00:00 115 94 09/01/18 23:47 97 14 100 09/01/18 23:36 98 92 09/01/18 23:28 89 108/56 96 09/01/18 23:23 81 16 98 09/01/18 23:13 97 115/63 92 09/01/18 23:00 95 88 09/01/18 22:58 99 119/74 90 09/01/18 22:42 93 126/76 91 09/01/18 22:27 95 117/71 91 09/01/18 22:12 107 117/74 91 09/01/18 22:00 93 90 09/01/18 21:48 93 92 09/01/18 21:36 93 124/71 97 09/01/18 19:30 100.8 F 102 16 114/63 93 - Laboratory Lab Results: Laboratory Tests 09/01/18 09/01/18 09/01/18 20:17 23:32 23:32 Lactic Acid 1.6 AST 27 ALT 33 C-Reactive Protein 22.25 H Influenza A (Rapid) Positive A Result Diagrams: 09/01/18 23:32 09/01/18 23:32 Lab Statement: Any lab studies that have been ordered have been reviewed, and results considered in the medical decision making process. - Radiology Chest X-ray Radiology Interpretation Completed By: ED Physician Summary of Radiographic Findings: The Chest X-ray reveals negative findings as per ED Physician. - CT CTA CT Interpretation Completed By: Radiologist Summary of CT Findings: CTA reveals as per radiologist No pulmonary emboli. No additional findings to correlate with patient's symptomatology. The ED Physician has reviewed this radiology report. Course/Dx - Course Course Of Treatment: The patient is a 33 year old male who is presenting to the [facility] with complaints of flu-like symptoms such as chest congestion and cough. The patient recieved a CTA and a chest X-ray in the [facility]. The O2 saturation has improved since [facility] arrival. Influenza A test revealed positive findings. We consulted Dr. Joshi at 0238 and he accepted patient care. The patient will be admitted to the [facility] for observation and the dx will be influenza A and hypoxia. - Diagnoses Provider Diagnoses: Hypoxia, Influenza A - Provider Notifications Discussed Care Of Patient With: Oliver Joshi - Discussed patient care Time Discussed With Above Provider: 02:38 Discharge - Sign-Out/Discharge Documenting (check all that apply): Patient Departure - Admitted to the [facility] All imaging exams completed and their final reports reviewed: No Patient Received Moderate/Deep Sedation with Procedure: No - Discharge Plan Condition: Stable Disposition: ADMITTED TO [facility] - Attestation Statements Document Initiated by Scribe: Yes Documenting Scribe: Brain Cho Provider For Whom Scribe is Documenting (Include Credential): Dr. Arabella Andersenibnelly Attestation: I, sanket Walker for Dr. Raulito Odonnell on 09/02/18 at 0635. Status of Scribe Document: Ready
[2018-09-02] MEDS ORDERED: Alfuzosin ER (NF) 10 MG TAB.ER PO SCH (09:00)
[2018-09-02] MEDS ORDERED: Oseltamivir CAP* 75 MG CAP G TUBE SCH (09:00)
[2018-09-02] MEDS ORDERED: Oseltamivir CAP* 75 MG CAP PO SCH (09:00)
[2018-09-02] MEDS ORDERED: Oseltamivir SUSP 60 MG dose* 60 MG/10 ML ORAL.SYRIN PO SCH (09:00)
[2018-09-02] MEDS: levETIRAcetam LIQ* 500 MG/5 ML UDC G TUBE SCH ×2 (10:21→20:58)
[2018-09-02] MEDS: ORALSYR G TUBE SCH (10:22)
[2018-09-02] MEDS: RANITIDINE G TUBE SCH (10:22)
[2018-09-02] MEDS: Polyethylene Glycol 3350* 17 GM PACKET G TUBE SCH (10:23)
[2018-09-02] MEDS: Oseltamivir SUSP 75 MG dose* 75 MG/12.5 ML ORAL.SYRIN G TUBE SCH ×2 (10:23→20:58)
--- NOTE | 2018-09-02 10:54 | PN ---
Hospitalist Progress Note Date of Service: 09/02/18 Pt seen and examined. 33 yo male PMH cerebral palsy, seizure disorder presenting from the [facility] with fever, tremors, chest congestion and found to have Influenza A with acute hypoxic respiratory failure. Hypoxia has improved and currently on room air. s/p CXR and CT chest angiogram without acute process. Has frequent seizures in setting of infection. On contact for MRSA in Urine Apr 2018 and droplet for flu. Continue Tamiflu and supportive care. Anticipate likely can return to [facility] tomorrow. Continue lamictal and keppra via PEG tube.
[2018-09-02] MEDS: PTO:Alfuzosin ER (NF) 10 MG TAB.ER PO SCH (12:19)
[2018-09-02] MEDS: NS 0.9% 1000 ML** 1,000 ML IV SCH (12:19)
[2018-09-02] MEDS ORDERED: lamoTRIgine TAB(*) 100 MG G TUBE SCH ×3 (18:00→21:00)
[2018-09-03 06:21] LABS: ABS Basophils 0 10^3/ul (0-0.2); ABS Eosinophils 0 10^3/ul (0-0.6); ABS Lymphocytes 1.5 10^3/ul (1.0-4.8); ABS Monocytes 0.8 10^3/ul (0-0.8); ABS Neutrophils 2.1 10^3/ul (1.5-7.7); ABS Nucleated RBC 0 10^3/ul; Eosinophil % 1.1 %; Hematocrit 41 % (42-52); Hemoglobin 13.5 g/dl (14.0-18.0); Lymphocyte % 33.1 %; Mean Corpuscular HGB Conc 33 g/dl (31-36); Mean Corpuscular Hemoglobin 31 pg (27-31); Mean Corpuscular Volume 94 fL (80-94); Mean Platelet Volume 8.2 fL (7.4-10.4); Nucleated Red Blood Cells % 0; Platelet Count 131 10^3/ul (150-450); Red Blood Count 4.34 10^6/ul (4.00-5.40); Red Cell Distribution Width 14 % (10.5-15); White Blood Count 4.4 10^3/ul (3.5-10.8)
[2018-09-03 06:42] LABS: BUN/Creatinine Ratio 13.1 (8-20); Calcium 9.3 mg/dL (8.6-10.3); EGFR Non-African American 106.6 (>60); Potassium 4.2 mmol/L (3.5-5.0)
[2018-09-03] MEDS: NS 0.9% 1000 ML** 1,000 ML IV SCH (09:18)
[2018-09-03] MEDS: Oseltamivir SUSP 75 MG dose* 75 MG/12.5 ML ORAL.SYRIN G TUBE SCH (09:20)
[2018-09-03] MEDS: levETIRAcetam LIQ* 500 MG/5 ML UDC G TUBE SCH (09:20)
[2018-09-03] MEDS: ORALSYR G TUBE SCH (09:20)
[2018-09-03] MEDS: RANITIDINE G TUBE SCH (09:20)
[2018-09-03] MEDS: PTO:Alfuzosin ER (NF) 10 MG TAB.ER PO SCH (09:21)
[2018-09-03] MEDS: Polyethylene Glycol 3350* 17 GM PACKET G TUBE SCH (09:21)
[2018-09-03 12:29] VITALS: BP 108/65
--- NOTE | 2018-09-03 15:21 | DS ---
CC: Dr. Nation * DISCHARGE SUMMARY: DATE OF ADMISSION: DATE OF DISCHARGE: 09/03/18 HISTORY OF PRESENT ILLNESS: This 33-year-old man presented with hypoxia. His rapid flu swab showed influenza A. He was restarted on oseltamivir, he received 3 doses of 75 mg each. While here, his temperature was 101.7 on the afternoon of the first hospital day. During the second hospital day up until the time of discharge, it was under 99. His white count was 13.5, unchanged from the day before. He was on room air all of the second hospital day with an O2 sat of 94% to 95%. He was eating normally and his behavior was normal. He was assessed by an aide in the room who is familiar with him. FINAL DIAGNOSES: 1. Influenza A. 2. Cerebral palsy. 3. Seizure disorder. DISCHARGE MEDICATIONS: 1. Oseltamivir 75 mg b.i.d., to receive 7 more doses. 2. Allergy shots as prescribed. 3. Clotrimazole 1% cream 4 times a day p.r.n. 4. Ibuprofen 20 mL every 6 hours p.r.n. 5. Epinephrine 0.3 mg p.r.n. 6. Acetaminophen 325 mg by gastric tube every 4 hours p.r.n. 7. Hydrocortisone 1% cream b.i.d. to affected areas. 8. Triple antibiotic 4 times a day as needed. 9. Levetiracetam 1500 mg by gastric tube twice daily. 10. Dapsone topically every morning. 11. Adapalene 0.1% topical, bedtime on face p.r.n. 12. Ranitidine liquid 10 mL by gastric tube daily. 13. Montelukast 10 mg daily. 14. Polyethylene glycol 25 mL by gastric tube daily. 15. Lamotrigine 100 mg by tube every evening. 16. Fexofenadine 180 mg by tube every morning. 17. Erythromycin 2% as prescribed. 18. Phenazopyridine 200 mg q.8 hours p.r.n. pain from UTI. 19. Clindamycin/benzoyl peroxide 1.2/5% topically daily. 20. Aquaphor ointment at bedtime. 21. SF 5000 Plus 1.1% orally daily. 22. Multivitamin with mineral daily. 23. Benzoyl peroxide daily for folliculitis. 24. Nutritional supplement 1 can gastric tube daily. 25. Benzethonium chloride apply topically p.r.n. 26. Alfuzosin 10 mg daily. 27. Diphenhydramine 25 mg at bedtime p.r.n. 28. Lactulose 15 mL 4 times a day p.r.n. constipation. 29. Sodium phosphate enema p.r.n. CONDITION ON DISCHARGE: Stable. DISPOSITION ON DISCHARGE: [facility] [id number]/[facility] #: [id number] [place]
== END 2018-09-03 14:37 | disposition home or self-care (01) ==
LOC: ED 19:20 → MEDTELE 09-02 02:56
PROVIDERS: ADMIT Internal Medicine; ATTEND Internal Medicine
DX: J11.1 Influenza due to unidentified influenza virus with other respiratory manifestations (principal); G80.9 Cerebral palsy, unspecified; G40.909 Epilepsy, unspecified, not intractable, without status epilepticus; R09.02 Hypoxemia; R05 Cough; Z88.2 Allergy status to sulfonamides
CPT/HCPCS: 36415; 71045; 71275; 80048; 80053; 81003; 81015; 83605; 85025; 85610; 85730; 86140; 87040; 87086; 96360; 96361; 99285; A9270-GY; G0378; Q9967

== ENCOUNTER 2019-04-23 17:24 | Inpatient (IN) | payer BC, MEDICAID ==
--- NOTE | 2019-04-23 17:47 | ED ---
Complex/Multi-Sys Presentation - HPI Summary HPI Summary: Patient is a 33 y/o M w/ Hx of seizure who presents to [facility] via EMS for seizure lasting over 20 minutes. Pt has hx cerebral palsy. He is a level 5 caveat due to baseline nonverbal status. Patient lives at the [facility] and is accompanied by Chloe Baez facility aide. Seizure activity was noted at 1615 today, 04/23/19. Seizure is characterized as flailing of arms and legs. Patient has had several previous seizure disorder and is followed by [facility] neurology. Parents and [facility] staff wanted the patient to be evaluated as the episode of activity is reported to have lasted 20 minutes or more and this in unusual for the pt. Typical seizures are reported to last less than 5 minutes. No medication for the seizure was given at [facility]. EMS BG was 92. Patient is alert according to normal affect at present. EMS makes note that the patient had rhythmic movement of legs, but patient was awake and had no other movement so no medication was given by EMS. He had a renal US done by Dr. Jacob earlier today, 04/23/19. Hx of UTIs is noted, and there were concerns for prostatitis so he will be treated with extended course of Augmentin. Pt's seizures have been triggered in the past,when pt has UTI's. Patient was started on Augmentin 875 BID for 14 days. Balbina Corona reports that the patient had all his morning medications. Patient was noted to be incontinent of urine with the seizure. No fever noted. Home medications and allergies are reviewed. In room, BP 123/85, o2 95 on RA, and pulse 72. Home Medications Alfuzosin ER (NF) [Uroxatral (NF)] 10 mg G TUBE DAILY 04/23/19 [History Confirmed 04/23/19] Benzoyl Peroxide [Riax] 5.5 % TOPICAL .TWICE A WEEK 04/23/19 [History Confirmed 04/23/19] Bisacodyl SUPP* [Dulcolax Supp*] 10 mg LA DAILY PRN 04/23/19 [History Confirmed 04/23/19] Clindamycin Phos/Benzoyl Perox [Benzaclin with Pump 1-5 %] 1 gel TOPICAL DAILY 04/23/19 [History Confirmed 04/23/19] Clotrimazole 1% TOPICAL (NF) [Lotrimin 1% TOPICAL (NF)] 1 % TOPICAL DAILY PRN [History Confirmed 04/23/19] Dapsone [Aczone] 7.5 % TOPICAL BID 04/23/19 [History Confirmed 04/23/19] Dextromethorphan Polistirex [Delsym] 10 ml PO Q12HR PRN 04/23/19 [History Confirmed 04/23/19] EPINEPHrine [Epipen 2-Lenny] 0.3 mg INJ DAILY PRN 04/23/19 [History Confirmed 05/02] Erythromycin Base/Ethanol [Erythromycin 2% Pledgets] 1 each TOPICAL DAILY [History Confirmed 04/23/19] Fexofenadine (NF) [Amy 180 (NF)] 180 mg G TUBE DAILY 04/23/19 [History Confirmed 04/23/19] Fluoride (Sodium) [Sf 5000 Plus] 1.1 % PO DAILY 04/23/19 [History Confirmed 05/02] Hydrocortisone 1% CREAM* [Hytone Cream 1%*] 1 applic TOPICAL BID PRN 04/23/19 [ History Confirmed 04/23/19] Ibuprofen ADULT LIQ* [Motrin LIQ ADULT*] 20 ml PO Q6HR PRN 04/23/19 [History Confirmed 04/23/19] Montelukast Sodium TAB* [Singulair TAB*] 10 mg G TUBE DAILY 04/23/19 [History Confirmed 04/23/19] Multivit-Min/FA/Lycopen/Lutein [Centrum Silver Men Tablet] 1 tab G TUBE DAILY [History Confirmed 04/23/19] Neomycin/Bacitracin/Polymyxinb [Triple Antibiotic Ointment] 1 each TOPICAL DAILY PRN 04/23/19 [History Confirmed 04/23/19] Nutritional Supplement [Resource 2.0] 1 liq G TUBE 1000 PRN 04/23/19 [History Confirmed 04/23/19] Nystatin OINT* 1 applic TOPICAL TID 04/23/19 [History Confirmed 04/23/19] Petrolatum,White [Aquaphor Advanced Therapy] 1 oin TOPICAL BEDTIME 04/23/19 [ History Confirmed 04/23/19] Polyethylene Glycol 3350 BTL* [Miralax] 6 teasp PO DAILY PRN 04/23/19 [History Confirmed 04/23/19] Ranitidine SOLN* (NF) ORALSYR [Zantac SOLN* ORALSYR (NF)] 10 ml G TUBE DAILY 05/02 [History Confirmed 04/23/19] Sodium Phosphate ADULT ENEMA* [Fleet Enema*] 1 enema LA DAILY PRN 04/23/19 [ History Confirmed 04/23/19] Tretinoin 0.04 % TOPICAL BEDTIME 04/23/19 [History Confirmed 04/23/19] diPHENhydraMINE PO* [Benadryl PO 25 MG TAB*] 25 mg G TUBE QPM PRN 04/23/19 [ History Confirmed 04/23/19] lamoTRIgine TAB(*) [LaMICtal TAB(*)] 100 mg G TUBE BID 04/23/19 [History Confirmed 04/23/19] levETIRAcetam TAB* [Keppra TAB*] 1,500 mg G TUBE BID 04/23/19 [History Confirmed 04/23/19] Allergies Allergy/AdvReac Type Severity Reaction Status Date / Time ciprofloxacin Allergy Severe Anaphylatic Verified 04/23/19 17:39 Shock clindamycin Allergy Rash Verified 04/23/19 17:39 sulfamethoxazole Allergy Rash And Verified 04/23/19 17:39 [From Bactrim] Itching trimethoprim [From Bactrim] Allergy Rash And Verified 04/23/19 17:39 Itching ENVIRONMENTAL/SEASONAL Allergy Unknown Uncoded 04/23/19 17:39 HAYFEVER Reaction Details - History Of Current Complaint Chief Complaint: EDSeizure Time Seen by Provider: 04/23/19 17:38 Hx Obtained From: Family/Senior Escrow Officer - balbina Corona from [facility], EMS, Other: - level 5 caveat due to baseline nonverbal status Hx From Patient Unobtainable Due To: Other - baseline nonverbal status Onset/Duration: Resolved Timing: Minutes - 20 minute seizure episode Severity Currently: None Severity Initially: Severe Location: Negative - no pain apparent by adult nonverbal scale Aggravating Factor(s): seizure likely aggravated by UTI, prostatitis, as it has been in the past Alleviating Factor(s): nothing, seizure resolved spontaneously. No seizure medication given by [facility] staff prior to EMS transport. No diastat given at [facility], not available for pt per med list. Seizure had resolved by the time of EMS arrival, so no meds given by EMS. Associated Signs And Symptoms: Positive: Other - positive - urinary incontinence , seizure activity which was tonic clonic, witnessed. Negative: Fever Related History: Similar Episode/Diagnosed As: - seizure disorder - Allergies/Home Medications Allergies/Adverse Reactions: Allergies Allergy/AdvReac Type Severity Reaction Status Date / Time ciprofloxacin Allergy Severe Anaphylatic Verified 04/23/19 17:39 Shock clindamycin Allergy Rash Verified 04/23/19 17:39 sulfamethoxazole Allergy Rash And Verified 04/23/19 17:39 [From Bactrim] Itching trimethoprim [From Bactrim] Allergy Rash And Verified 04/23/19 17:39 Itching ENVIRONMENTAL/SEASONAL Allergy Unknown Uncoded 04/23/19 17:39 HAYFEVER Reaction Details Home Medications: Home Medications Alfuzosin ER (NF) [Uroxatral (NF)] 10 mg G TUBE DAILY 04/23/19 [History Confirmed 04/23/19] Benzoyl Peroxide [Riax] 5.5 % TOPICAL .TWICE A WEEK 04/23/19 [History Confirmed 04/23/19] Bisacodyl SUPP* [Dulcolax Supp*] 10 mg LA DAILY PRN 04/23/19 [History Confirmed 04/23/19] Clindamycin Phos/Benzoyl Perox [Benzaclin Gel 35G Pump] 1 gel TOPICAL DAILY 05/02 [History Confirmed 04/23/19] Clotrimazole 1% TOPICAL (NF) [Lotrimin 1% TOPICAL (NF)] 1 % TOPICAL DAILY PRN [History Confirmed 04/23/19] Dapsone [Aczone] 7.5 % TOPICAL BID 04/23/19 [History Confirmed 04/23/19] Dextromethorphan Polistirex [Delsym] 10 ml PO Q12HR PRN 04/23/19 [History Confirmed 04/23/19] EPINEPHrine [Epipen 2-Lenny] 0.3 mg INJ DAILY PRN 04/23/19 [History Confirmed 05/02] Erythromycin Base/Ethanol [Erythromycin 2% Pledgets] 1 each TOPICAL DAILY [History Confirmed 04/23/19] Fexofenadine (NF) [Amy 180 (NF)] 180 mg G TUBE DAILY 04/23/19 [History Confirmed 04/23/19] Fluoride (Sodium) [Sf 5000 Plus] 1.1 % PO DAILY 04/23/19 [History Confirmed 05/02] Hydrocortisone 1% CREAM* [Hytone Cream 1%*] 1 applic TOPICAL BID PRN 04/23/19 [ History Confirmed 04/23/19] Ibuprofen ADULT LIQ* [Motrin LIQ ADULT*] 20 ml PO Q6HR PRN 04/23/19 [History Confirmed 04/23/19] Montelukast Sodium TAB* [Singulair 10 MG TAB*] 10 mg G TUBE DAILY 04/23/19 [ History Confirmed 04/23/19] Multivit-Min/FA/Lycopen/Lutein [Centrum Silver Men Tablet] 1 tab G TUBE DAILY [History Confirmed 04/23/19] Neomycin/Bacitracin/Polymyxinb [Triple Antibiotic Ointment] 1 each TOPICAL DAILY PRN 04/23/19 [History Confirmed 04/23/19] Nutritional Supplement [Resource 2.0] 1 liq G TUBE 1000 PRN 04/23/19 [History Confirmed 04/23/19] Nystatin OINT* 1 applic TOPICAL TID 04/23/19 [History Confirmed 04/23/19] Petrolatum,White [Aquaphor] 1 oin TOPICAL BEDTIME 04/23/19 [History Confirmed ] Polyethylene Glycol 3350 BTL* [Miralax] 6 teasp PO DAILY PRN 04/23/19 [History Confirmed 04/23/19] Ranitidine SOLN* (NF) ORALSYR [Zantac SOLN* ORALSYR (NF)] 10 ml G TUBE DAILY 05/02 [History Confirmed 04/23/19] Sodium Phosphate ADULT ENEMA* [Fleet Enema*] 1 enema LA DAILY PRN 04/23/19 [ History Confirmed 04/23/19] Tretinoin 0.04 % TOPICAL BEDTIME 04/23/19 [History Confirmed 04/23/19] diPHENhydraMINE PO* [Benadryl PO 25 MG TAB*] 25 mg G TUBE QPM PRN 04/23/19 [ History Confirmed 04/23/19] Amoxicillin/Clavulanate TAB* [Augmentin TAB 875*] 875 mg PO BID 04/24/19 [ History Confirmed 04/24/19] PMH/Surg Hx/FS Hx/Imm Hx Previously Healthy: No Endocrine/Hematology History: Denies: Hx Diabetes, Hx Thyroid Disease Cardiovascular History: Denies: Hx Congestive Heart Failure, Hx Hypertension Respiratory History: Reports: Hx Seasonal Allergies Denies: Hx Asthma, Hx Chronic Obstructive Pulmonary Disease (COPD) GI History: Reports: Hx Gastroesophageal Reflux Disease, Other GI Disorders - PEG tube Denies: Hx Ulcer History: Reports: Other Problems/Disorders - frequent UTIs, neurogenic bladder Denies: Hx Renal Disease Sensory History: Denies: Hx Cataracts, Hx Contacts or Glasses, Hx Macular Degeneration, Hx Vision Problem, Hx Deafness, Hx Hearing Aid, Other Sensory Impairments Opthamlomology History: Denies: Hx Cataracts, Hx Contacts or Glasses, Hx Macular Degeneration, Hx Vision Problem, Other Sensory Impairments Neurological History: Reports: Hx Seizures, Other Neuro Impairments/Disorders - noverbal, CP - Surgical History Surgery Procedure, Year, and Place: GASTROPLASTY AT AGE 10, [facility], ENT surgery Hx Anesthesia Reactions: Yes - PROBLEMS WITH POST OP PAIN AFTER TONSILLECTOMY AND FUNDIPLICATION Infectious Disease History: No Infectious Disease History: Denies: Hx Clostridium Difficile, Hx Hepatitis, Hx Human Immunodeficiency Virus (HIV), Hx of Known/Suspected MRSA, Hx Shingles, Hx Tuberculosis, Hx Known/ Suspected VRE, Hx Known/Suspected VRSA, History Other Infectious Disease, Traveled Outside the [place] in Last 30 Days - Family History Known Family History: Positive: Hypertension - Social History Alcohol Use: None Hx Substance Use: No Substance Use Type: Reports: None Hx Tobacco Use: No Smoking Status (MU): Never Smoked Tobacco - Additional Comments History Additional Comments: level 5 caveat due to baseline nonverbal status Review of Systems - ROS Summary Review of Systems Summary: level 5 caveat due to baseline nonverbal status Negative: Fever Positive: incontinence - urine Neurological: Other - positive - seizure activity All Other Systems Reviewed And Are Negative: No - Comments Additional Review of Systems Comments: level 5 caveat due to baseline nonverbal status Physical Exam - Summary Physical Exam Summary: Appearance: Well-appearing, no acute pain distress apparent, well-nourished, calm, no grimacing Skin: Warm, color reflects adequate perfusion, dry Head: Overbite noted; head is atraumatic Eyes: Conjunctiva clear, pupils are midpoint, EOMI, no nystagmus ENT: Overbite, mucous membranes moist, no evidence of tongue biting Neck: Supple, no nodes, no JVD Respiratory: Lungs clear, normal breath sounds, no respiratory distress Cardio: RRR, No murmur, pulses normal, brisk capillary refill Abdomen: Soft, nontender, wearing abdomen binder which covers PEG tube to prevent pt from pulling at this Bowel sounds: Present Musculoskeletal: Muscle atrophy noted, he moves all extremities, no calf tenderness, no edema. Psychological: calm and cooperative Neuro: Alert, atrophied muscles noted, no apparent focal deficit, nonverbal Triage Information Reviewed: Yes Vital Signs On Initial Exam: Initial Vitals Temp Pulse Resp BP Pulse Ox 97.5 F 71 18 123/85 95 04/23/19 17:35 04/23/19 17:35 04/23/19 17:35 04/23/19 17:35 04/23/19 17:35 Vital Signs Reviewed: Yes Completion Of Physical Exam Limited Due To: Level 5 Procedures - Sedation Patient Received Moderate/Deep Sedation with Procedure: No Diagnostics - Vital Signs Vital Signs Temp Pulse Resp BP Pulse Ox 04/23/19 17:35 97.5 F 71 18 123/85 95 - Laboratory Result Diagrams: 04/24/19 06:15 04/24/19 06:15 Lab Statement: Any lab studies that have been ordered have been reviewed, and results considered in the medical decision making process. Re-Evaluation - Re-Evaluation First Eval Re-Evaluation Time: 18:20 Change: Unchanged Comment: Pt resting comfortably on stretcher, eyes open. stefania Corona's aide is with pt. Seizure precautions in place. Complex Multi-Symp Course/Dx Course Of Treatment: Patient is a 33 y/o M w/ Hx of seizure disorder and CP who presents to [facility] via EMS for seizure. He is a level 5 caveat due to baseline nonverbal status. Patient lives at the [facility] and is accompanied by Chloe Baez facility aide. Seizure activity was noted at 1615 today, 04/23/19. Seizure is characterized as flailing of arms and legs. Patient has had several previous seizure episodes. Parents and [facility] staff wanted the patient to be evaluated as witnessed seizure episode is reported to have lasted 20 minutes. Typical seizures are reported to last less than 5 minutes. No medications were given for the seizure at [facility]. EMS BG was 92. Patient is alert with normal affect at present per pt's aide. EMS makes note that the patient had rhythmic movement of legs, but patient was awake and had no other movement, and was not actively seizing upon their arrival or during transport, so no medications were given by EMS. He had a renal US done by Dr. Jacob earlier today, 04/23/19. Hx of UTIs is noted, there were concerns for prostatitis. Pt's seizures are often activated by UTI's. Patient was started on Augmentin 875 BID for 14 days for prostatitis. Patient is calm and cooperative on exam. Overbite noted, he has no tongue biting evidence and no nystagmus and he moves all extremities, no apparent trauma to his head or extremities. Bloodwork was obtained. Abnormal values include WBC 3.2, INR 1.11, AST 40, ALT 59. UA was negative. Patients medical records were reviewed. As of 04/23/19, patient is on Augmentin 875 BID for 14 more days, and as of 03/02/19, continue all medications with increase of lacmitcal to maintain at 125 mg QHS. However, in same medical records, patient is reported to be on 100 mg lacmitcal bid, not 100 qam and 125 at hs. During ED course, patient received Keppra 2000 mg per G TUBE and lamictal 100 mg per G TUBE. 1819 - Patient's case was discussed with Dr. Diaz, patient's father, he notes that he is concerned due to the length of the patient's seizure. 1923 - Patient's case was discussed with Dr. Castro. He recommends 2000 mg Keppra and to clarify Lamictal dose. He advises that admission for observation would be prudent given the unusually long duration of this seizure, to clarify the lamictal dose, and to increase the Keppra, and to observe pt for further seizure activity overnight. 1941 - Patient's case was discussed with Dr. De La Rosa, and Dr. De La Rosa accepts for admission for observation. - Diagnoses Provider Diagnoses: Seizure, Prostatitis - Physician Notifications Discussed Care Of Patient With: Jb De La Rosa Time Discussed With Above Provider: 19:24 Instructed by Provider To: Other - 1923 - Patient's case was discussed with Dr. Castro. He recommends 2000 mg Keppra and to clarify Lamictal dose. Advises admission for observation due to prolonged seizure and for med management and to observe for further seizures overnight. 1941 - Patient's case was discussed with Dr. De La Rosa, and Dr. De La Rosa accepts for admission. - Critical Care Time Critical Care Time: 30-74 min - 30 MINUTES CCT Discharge ED - Sign-Out/Discharge Documenting (check all that apply): Patient Departure - admit - Discharge Plan Condition: Stable Disposition: ADMITTED TO [facility] - Billing Disposition and Condition Condition: STABLE Disposition: Admitted to [facility] - Attestation Statements Document Initiated by Nathalyibnelly: Yes Documenting Scribe: CAROLIN ROSE Provider For Whom Becky is Documenting (Include Credential): LORENZA CRUZ MD Scribe Attestation: CAROLIN Espino, scribed for LORENZA CRUZ MD on 05/12/19 at 1253. Scribe Documentation Reviewed: Yes Provider Attestation: The documentation as recorded by the CAROLIN vickers accurately reflects the service I personally performed and the decisions made by , LORENZA CRUZ MD Status of Scribe Document: Viewed
--- OUTSIDE RECORDS SUMMARY | 2019-04-23 18:10 | XMS REPORT | Continuity of Care Document ---
:1985 External Reference #:[id number] Author Name Terrance Minor M.D. (transmitted by agent of provider Za Melendrez) Address [address], [place] [address] Care Team Providers Name Role Phone Sal Nation MD - Family Medicine Care Team Information Paste Up Artist [phone] Problems Active Problems Provider Date Epilepsy Faustina Sloan M.D. Onset: 03/31/2015 Severe cognitive impairment Faustina Sloan M.D. Onset: 03/31/2015 Hypoxemia Oliver Joshi M.D.,[facility] Onset: 09/02/2018 Social History Type Date Description Comments Sex Unknown Tobacco Use Start: Unknown Never Smoked Cigarettes Smoking Status Reviewed: 03/20/19 Never Smoked Cigarettes ETOH Use Never used alcohol Tobacco Use Start: Unknown Patient has never smoked Recreational Drug Use Denies Drug Use Allergies, Adverse Reactions, Alerts Active Allergies Reaction Severity Comments Date Clindamycin 03/30/2014 Cipro 03/30/2014 Bactrim 03/30/2014 Medications Active Medications SIG Qnty Indications Ordering Date Provider Lamotrigine 1 per g tube bid 60tabs G40.909 Terrance Stokes 03/20/2019 25mg with 100 mg tabs Jerardo Minor Tablets Oxygen please use o2 at 1units Hazel Amaya MD 06/20/2017 Misc 2l/min as needed durning/after seizure Lamotrigine 1 per g tube bid 60tabs Terrance Stokes 04/09/2017 100mg with 25 mg tabs Jerardo Minor Tablets Levetiracetam 3 tabs via g-tube 180tabs Terrance Stokes 09/08/2012 500mg every morning and Jerardo Minor Tablets 3 tabs via g-tube every evening Benadryl Allergy 2 caps via g-tube Unknown 25mg at hs Capsules Biscolax 1 suppository Unknown 10mg daily if no BM by Suppository 7:30pm Acetaminophen 2 tablets by mouth Unknown 325mg every 6 hours as Tablets needed for pain/fever Ibuprofen take 20ml by mouth Unknown 100mg/5ML four times a day Suspension as needed Centrum Adults once a day Unknown Tablets Tobramycin-Dexamethas 5 drops mto left Unknown one ear bid as needed 0.3-0.1% Suspension Adapalene apply 1 45gm Unknown 0.1% Gel application topically to affected area daily at bedtime for acne Pyridium 1 as needed every 10tabs Unknown 200mg Tablets 6 hours Alfuzosin HCL ER 1 by mouth every Unknown 10mg day Tablets ER 24HR Aczone apply to affected 90gm Unknown 5% Gel area sparingly every day Montelukast Sodium 1 by mouth every 90tabs Unknown 10mg day Tablets Fexofenadine HCL 1 po qd 30tabs Unknown 180mg Tablets Clindamycin/Benzoyl apply 1 45gm Unknown Peroxide application 1.2-5% Gel topically to affected area daily after washing inthe evening for acne Erythromycin apply topically to 50units Unknown 2% face and back Solution Polyethylene Glycol 5 ml qd 30units Unknown 3350 3350NF Packet Ranitidine HCL 10 mL via g-tube Unknown 15mg/ml daily Syrup Immunizations Description No Information Available Vital Signs Date Vital Result Comment 03/20/2019 10:37am Height 67 inches 5'7" Weight 152.00 lb Heart Rate 68 /min BP Systolic Sitting 124 mmHg BP Diastolic Sitting 84 mmHg BMI (Body Mass Index) 23.8 kg/m2 06/10/2018 2:17pm Height 67 inches 5'7" Weight 152.38 lb Heart Rate 68 /min BP Systolic 124 mmHg left arm.. 113/65at home.. BP Diastolic 94 mmHg left arm.. 113/65at home.. Respiratory Rate 18 /min BMI (Body Mass Index) 23.9 kg/m2 Results Test Date Facility Test Result H/L Range Note Laboratory test 02/24/2019 [facility] Lamotrigine 4.4 g/mL 2.5 - 15.0 1 finding [address] (Lamictal) [place] [address] [phone] Levetiracetam (Keppra) 21.1 g/mL 2 1 ADDITIONAL INFORMATION This test was developed and its performance characteristics determined by [facility] in a manner consistent with CLIA requirements. This test has not been cleared or approved by the U.S. Food and Drug Administration. Test Performed by: [facility] - [address] [address] 2 REFERENCE VALUE 12.0 - 46.0 ADDITIONAL INFORMATION This test was developed and its performance characteristics determined by [facility] in a manner consistent with CLIA requirements. This test has not been cleared or approved by the U.S. Food and Drug Administration. Test Performed by: [facility] - [address] [address] Procedures Description No Information Available Medical Devices Description No Information Available Encounters Description No Information Available Assessments Date Code Description Provider 03/20/2019 G40.909 Epilepsy, unspecified, not intractable, Terrance Minor M.D. without status epilepticus 03/20/2019 G80.9 Cerebral palsy, unspecified Terrance Minor M.D. Plan of Treatment Future Appointment(s):03/22/2020 9:45 am - Terrance Minor M.D. at [facility]03/20/2019 - Terrance Minor M.D.G40.909 Epilepsy, unspecified, not intractable, without status epilepticusNew Medication: Lamotrigine 25 mg - 1 per g tube bid with 100 mg tabsG80.9 Cerebral palsy, unspecified Functional Status Description No Information Available Mental Status Description No Information Available Referrals Description No Information Available
--- OUTSIDE RECORDS SUMMARY | 2019-04-23 18:10 | XMS REPORT | Continuity of Care Document ---
:1985 External Reference #:[id number] Author Name Terrance Minor M.D. (transmitted by agent of provider Za Melendrez) Address [address], [place] [address] Care Team Providers Name Role Phone Sal Nation MD - Family Medicine Care Team Information Prepared [employer] Associate Problems Active Problems Provider Date Epilepsy Faustina Sloan M.D. Onset: 03/31/2015 Severe cognitive impairment Faustina Sloan M.D. Onset: 03/31/2015 Hypoxemia Oliver Joshi M.D.,[facility] Onset: 09/02/2018 Social History Type Date [...] Result H/L Range Note Laboratory test 02/24/2019 [facility] Lamotrigine 4.4 g/mL 2.5 - 15.0 [address] (Lamictal) [place] [address] [phone] Levetiracetam (Keppra) 21.1 g/mL 2 1 ADDITIONAL INFORMATION This test was developed and its performance characteristics determined by [facility] in a manner consistent with CLIA requirements. This test has not been cleared or approved by the U.S. Food and Drug Administration. Test Performed by: [facility] - [address] [address] 2 REFERENCE VALUE 12.0 - 46.0 ADDITIONAL INFORMATION This test was developed and its performance characteristics determined by [facility] in a manner consistent with CLIA requirements. This test has not been cleared or approved by the U.S. Food and Drug Administration. Test Performed by: [facility] - [address] [address] Procedures Description No Information Available Medical Devices Description No Information Available Encounters Description No Information Available Assessments Date Code Description Provider 03/20/2019 G40.909 Epilepsy, unspecified, not intractable, Terrance Minor M.D. without status epilepticus 03/20/2019 G80.9 Cerebral palsy, unspecified Terrance Minor M.D. Plan of Treatment Future Appointment(s):03/22/2020 9:45 am - Terrance [facility] M.D. at [facility]03/20/2019 - Terrance Minor M.D.G40.909 Epilepsy, unspecified, not intractable, without status epilepticusNew Medication: Lamotrigine 25 mg - 1 per g tube bid with 100 mg tabsG80.9 Cerebral palsy, unspecified Functional Status Description No Information Available Mental Status Description No Information Available Referrals Description No Information Available
--- OUTSIDE RECORDS SUMMARY | 2019-04-23 18:10 | XMS REPORT | Continuity of Care Document ---
:1985 External Reference #:[id number] Author Name SPENCER Patino Address [address] [place] [address] Problems Active Problems Provider Date Generalized convulsive epilepsy Artur Swartz M.D. Onset: 09/22/2009 Infantile cerebral palsy Artur Swartz M.D. Onset: 09/22/2009 Acute upper respiratory infection Nabila Corbett M.D. Onset: 05/04/2011 Acne Sal Nation M.D. Onset: 12/24/2011 Non-suppurative otitis media Sal Nation M.D. Onset: 02/01/2012 Infective otitis externa Artur Swartz M.D. Onset: 03/14/2012 Purulent otitis media Artur Swartz M.D. Onset: 03/14/2012 Cellulitis Sal Nation M.D. Onset: 04/15/2012 Cellulitis Sal Nation M.D. Onset: 01/12/2014 Urinary tract infectious disease Sal Nation M.D. Onset: 01/12/2014 Cerebral palsy Sal Nation M.D. Onset: 08/31/2014 Open wound of mouth without complication Sal Nation M.D. Onset: 02/01 Spontaneous ecchymosis Jaime Nixon M.D. Onset: 09/16/2015 Epilepsy Sal Nation M.D. Onset: 04/09/2017 Developmental disorder of scholastic Sal Nation M.D. Onset: 2017 skills, unspecified Social History Type Date Description Comments Sex Unknown Allergies, Adverse Reactions, Alerts Active Allergies Reaction Severity Comments Date Clindamycin 05/28/2008 Cipro 09/12/2010 Floxin 09/12/2010 Environmental 04/15/2012 Sulfa Petechia 01/12/2014 Bactrim 01/27/2019 Dust 03/02/2019 Mold 03/02/2019 Grass 03/02/2019 Medications Active Medications SIG Qnty Indications Ordering Date Provider Epinephrine Inject as Needed 2units Sal Beltran 12/09/2018 0.3mg/0.3ML Anaphylactic Jerardo Nation Solution Auto-Inject Reation/Call 911 (To Allergy Injection) Occupational Therapy Occupational Alise Ashleigh 12/04/2018 Evaluation Therapy Evaluation KRUNAL Garcia for seated, positioning, and mobility Fexofenadine HCL Take One Tablet 30tabs Sal Beltran 11/25/2018 180mg Via G-Tube Every Jerardo Nation Tablets Day (November) (Allergies) Cough DM use twice a day 1bottle J01.90 Alex AJaz 11/03/2018 30mg/5ML Suer for cough. 10 Jerardo Mackenzie milliliters by mouth every 12 hours as needed Benzoyl Peroxide use as dircted 60gm Sal Beltran 10/03/2018 5% Gel Jerardo Nation Peg 3350 6 Teaspoonfuls 510units Sal Beltran 10/03/2018 Powder (30cc) By Mouth Jerardo Nation Every Day Mix With Beverage For Constipation Ranitidine HCL 10ML Via 300units Sal Beltran 09/11/2018 75mg/5ML Gastrostomy Tube Jerardo Nation Syrup Once A Day ( GERD) Benzaclin With Pump apply daily at 4pm 50units Sal Beltran 08/07/2018 to facial acne Jerardo Nation 1-5% Gel areas Montelukast Sodium One Tablet Via 30tabs G80.8 Sal Beltran 08/01/2018 10mg G-Tube Every Day Jerardo Nation Tablets For Allergies Wheelchair Clinic physical Sal Beltran 11/19/2017 assessment and Jerardo Nation management clinic to be assesed fomartha new wheelchair [employer] needs replacement Sal Beltran 10/16/2017 Replacement harness has Jerardo Nation cracked due to his quadraplegia Benadryl Allergy 1-2 per night as 60caps Rocío 04/05/2017 25mg needed allergies, Roque, [employer]IN[employer] COUNSELOR Capsules nasal congestion Lactulose use one tablespoon 60ml Sal Beltran 11/28/2016 20GM/30ML in liquid if no bm Jerardo Nation Solution in 6hours give 2 tablespoons in liquid to be used if all other methods fail. 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 dx g40.309, g80.9 Tylenol 325MG Tab Two Tablets Via 120units Sal Beltran 07/12/2016 G-Tube Every 4 Jerardo Nation Hours as Needed For Fever >101 Degrees( DO Not Take With Ibuprofen) Dulcolax 10MG Sup 8Ea Insert 1 Rectally 24units Sal Beltran 05/31/2016 If No Bowel Jerardo Nation Movement By 7:30PM After Liquid Glycerin BD Catheter Tip Use For Tube 40units Sal Beltran 05/28/2016 Syringe Feeding Change Jerardo Nation 60 Every Morning Lotrimin 1% Cre 30GM Apply To Gtube 30units Sal Beltran 02/09/2016 Stoma Site Or Jerardo Nation Diaper Area as Needed For Rash Centrum Silver 1 Tablet Via 30units Sal Beltran 02/01/2016 G-Tube Every Day Jerardo Nation Chewtabs (Crushed) (Supplement) Fleet Liquid Glycerin 7.5ML Rectally 240units Sal Beltran 11/17/2015 Suppositories Every Day If No Jerardo Nation Bowel Movement 5.4GM/Dose Enema Earlier In The Day Note patient can be Sal Beltran 09/28/2015 reclined 10-15 Jerardo Nation degrees while dining and 15-20 while in A vehicle Miralax 6 Teaspoonfuls 527units Sal Beltran 09/01/2015 Powder 527GM (30cc) By Mouth Jerardo Nation Every Day Mix With Beverage For Constipation Amy 180MG Tab Take One Tablet 30units Sal Beltran 08/18/2015 Via G-Tube Every Jerardo Nation Day (November) (Allergies) Aquaphor Advanced use every night at Sal Beltran 08/31/2014 Therapy bedtime Jerardo Nation Ointment Safesnap Tuberculin 100units Sal Beltran 04/23/2014 Syringe/1ML/25G X Jerardo Nation /8" 25G X 5/8" 1 ML Misc Ibuprofen Give 4 473units Sal Beltran 02/18/2014 100mg/5ML Teaspoonfuls Jerardo Nation Suspension (20ML) Via Gastrostomy Tube Every 6 Hours as Needed For Pain Urinary Catheter needs straight Sal Beltran 03/04/2013 cath for residual Jerardo Nation Nystatin Apply To Affected 60units Sal Beltran 02/12/2012 [id number]/GM Areas 3 Times A Jerardo Nation Ointment Day For Breakdown On Hands as Needed (Antifungal) Hydrocortisone Apply To G-Tube 28units Sal Beltran 02/04/2012 1% Cream Stoma Site as Jerardo Nation Needed For Itching Lotrisone use on skin 45gm Sal Beltran 11/19/2011 1-0.05% Cream around g-tube bid Jerardo Nation x10 days Tiago-Nieto 18FR 4CM Low Dispense 1 q 3 1units Sal Beltran 08/30/2011 Profile Gastric Tube months Dx 343.8 Jerardo Nation Piston Syringes 60ML Use as Directed 60units Sal Beltran 05/16/2011 Jerardo Nation Resource 2.0 via gtube or mouth 60units Sal Beltran 04/28/2010 Liquid twice a day as Jerardo Nation directed Enema Disposable insert 1 pr if no 16units Sal Beltran 03/07/2010 BM x 2 days (10pm) Jerardo Nation 19-7GM/118ML Enema call Noc voicemail if no BM by 9am the following morning Keppra 15ml (1500mg) in Lisa Bharat, 09/06/2009 500mg/5ML the am 10ml DELINQU[employer] COUNSELOR Solution (1000mg) in the pm Aczone apply to face 30gr Sal Beltran 09/06/2009 5% Gel twice a day for Jerardo Nation acne Levetiracetam Unknown Lamotrigine at bedtime Unknown 25mg Tablets Lamotrigine ER twice a day Unknown 100mg Tablets ER 24HR New Skin apply 2 times a 30units Sal Beltran Liquid day as needed (to Jerardo Nation minor cuts/abrasions) Clindamycin Unknown Phos-Benzoyl Perox Adapalene use as directed Alise Sotelo 0.1% Gel KRUNAL Garcia Alfuzosin HCL ER Unknown 10mg Tablets ER 24HR Acetaminophen 2 tabs by mouth Unknown 325mg four times a day Tablets as for fever 101 degrees (Do not take with Ibuprofen) Triple Antibiotic apply topically to Unknown areas of skin [phone] Ointment breakdown as needed Pyridium 1 by mouth three Unknown 200mg Tablets times a day as needed Tobramycin-Dexamethas Instill 5 drops Unknown one into either ear 2 0.3-0.1% Suspension times a day as needed (infection) Erythromycin Apply every day to Unknown 2% face after Solution shaving, also chest and back (Acne) History Medications Amoxicillin 12.5 milliliters 200ml J01.90 Alex Jha 11/03/2018 - 400mg/5ML twice a day x 7 Jerardo Mackenzie 11/22/2018 Suspension Rec days Immunizations CPT Code Status Date Vaccine Lot # [id number] Given 04/24/2018 Influenza Vac, Quadriv[place], [place] [address] Given 05/15/2016 Influenza Vac, [place], [place] [address] Given 04/30/2015 Influenza Vac, [place]riv[place], [place] [address] Given 08/31/2014 Tdap Tetanus, W Pertussis [id number] 53929 Given 04/13/2014 DO Not Use Split Influenza Virus Vaccine 66954 Given 05/05/2012 DO Not Use Split Influenza Virus Vaccine 43922 Given 03/27/2011 DO Not Use Split Influenza Virus Vaccine [id number] 77461 Given 05/03/2009 DO Not Use Split Influenza Virus Vaccine 73269 Given 12/02/2006 Varicella (Chicken Pox) Immunization 48085 Given 12/02/2006 Hep A Ped 2-Dose Immunization 29652 Given 12/13/2005 Pneumococcal Immunization 67284 Given 12/13/2005 Hep A Ped 2-Dose Immunization 35670 Given 07/04/2005 Meningococcal Conjugate Vaccine,Serogroups For Intramuscular Use 54719 Given 07/04/2005 Tetanus And Diptheria Adult Preservative Free >7Yrs 48116 Given 06/25/1999 Pneumococcal Conjugate Vaccine Under 5Yrs 52961 Given 01/25/1998 Hepatitis B Immunization, -19 Years 30738 Given 06/14/1995 Varicella (Chicken Pox) Immunization 31108 Given 07/29/1992 Hepatitis B Immunization, -19 Years 04063 Given 04/27/1992 (IPV) Inactive Poliovirus Vaccine 41021 Given 04/27/1992 MMR Virus Immunization 14821 Given 04/27/1992 DTaP Immunization 34755 Given 03/01/1992 Hepatitis B Immunization, [place]-19 Years [address] Given 11/27/1988 (IPV) Inactive Poliovirus Vaccine 31812 Given 11/27/1988 DTaP Immunization 47596 Given 11/27/1988 (Hib) Hemoplilus Influenza B 43451 Given 09/04/1988 MMR Virus Immunization 95853 Given 1987 DTaP Immunization 93562 Given 1985 DTaP Immunization 66707 Given 1987 (IPV) Inactive Poliovirus Vaccine 41798 Given 1987 DTaP Immunization 24068 Given 1985 (IPV) Inactive Poliovirus Vaccine Vital Signs Date Vital Result Comment 03/02/2019 11:23am BP Systolic 112 mmHg BP Diastolic 70 mmHg Heart Rate 72 /min Body Temperature 97.2 F Respiratory Rate 16 /min 01/27/2019 10:40am BP Systolic 110 mmHg BP Diastolic 64 mmHg Heart Rate 66 /min Body Temperature 98.0 F Respiratory Rate 18 /min Weight 151.00 lb Results Test Date Facility Test Result H/L Range Note CBC Auto Diff 02/21/[place] [facility] [place] Blood Count 9.3 10^3/uL Normal 3.5- 10.8 Red Blood Count 4.80 10^6/uL Normal 4.18-5.48 Hemoglobin 14.7 g/dL Normal 14.0-18.0 Hematocrit 44 % Normal 42-52 Mean Corpuscular Volume 91 fL Normal 80-94 Mean Corpuscular Hemoglobin 31 pg Normal 27-31 Mean Corpuscular HGB Conc 34 g/dL Normal 31-36 Red Cell Distribution Width 15 % Normal 10-15 Platelet Count 144 10^3/uL Low 150-450 Mean Platelet Volume 8.9 fL Normal 7.4-10.4 Abs Neutrophils 7.3 10^3/uL Normal 1.5-7.7 Abs Lymphocytes 1.2 10^3/uL Normal 1.0-4.8 Abs Monocytes 0.7 10^3/uL Normal 0-0.8 Abs Eosinophils 0.0 10^3/uL Normal 0-0.6 Abs Basophils 0.0 10^3/uL Normal 0-0.2 Abs Nucleated RBC 0.0 10^3/uL Granulocyte % 79.2 % Lymphocyte % 12.5 % Monocyte % 7.6 % Eosinophil % 0.5 % Basophil % 0.2 % Nucleated Red Blood Cells % 0.0 Urinalysis Profile 02/21/2019 [facility] [place]rine Appearance Cloudy Urine Specific D[place] 1.027 Normal 1.010-1.030 Urine pH 5.0 Normal 5-9 Urine Urobilinogen Positive Abnormal Negative Urine Ketones Negative Negative Urine Protein 2+(100 mg/dL) Abnormal Negative Urine Leukocytes Negative Negative Urine Blood Negative Negative * * Abnormal Negative 1 Urine Nitrite Positive Abnormal Negative Urine Bilirubin Negative Negative Urine Glucose Negative Negative Urine White Blood Cell 3+(>20/hpf) Abnormal Absent Urine Red Blood Cell Trace(0-2/hpf) Absent Urine Bacteria Absent Absent Urine Squamous Epithelial Cell Present Abnormal Absent Urine Granular Casts Present Abnormal Absent Urine Color Dipti Comp Metabolic Panel 02/21/2019 [facility] [place] Sodium 138 mmol/L Normal 135-145 Potassium 4.1 mmol/L Normal 3.5-5.0 Chloride 102 mmol/L Normal 101-111 Co2 Carbon Dioxide 28 mmol/L Normal 22-32 Anion Gap 8 mmol/L Normal 2-11 Glucose 87 mg/dL Normal 70-100 Blood Urea Nitrogen 13 mg/dL Normal 6-24 Creatinine 0.89 mg/dL Normal 0.67-1.17 BUN/Creatinine Ratio 14.6 Normal 8-20 Calcium 9.6 mg/dL Normal 8.6-10.3 Total Protein 7.3 g/dL Normal 6.4-8.9 Albumin 4.6 g/dL Normal 3.2-5.2 Globulin 2.7 g/dL Normal 2-4 Albumin/Globulin Ratio 1.7 Normal 1-3 Total Bilirubin 0.50 mg/dL Normal 0.2-1.0 Alkaline Phosphatase 80 U/L Normal 34-104 Alt 62 U/L High 7-52 Ast 47 U/L High 13-39 Egfr Non- 99.7 >60 Egfr 120.6 >60 2 Laboratory test 12/01/2018 [facility] (General) [facility] Lab Test SEE ATTACHED finding Urine Culture And 10/20/2018 [facility] [place] SEE RESULT BELOW 3 Sensitivities 1 *Ascorbic acid is present which may interfere with detection of blood. 2 Because ethnic data is not always readily available, this report includes an eGFR for both -Americans and non- Americans. The National Kidney Disease Education Program (NKDEP) does not endorse the use of the MDRD equation for patients that are not between the ages of 18 and 70, are , have extremes of body size, muscle mass, or nutritional status, or are non- or non-. According to the National Kidney Foundation, irrespective of diagnosis, the stage of the disease is based on the level of kidney function: Stage Description GFR(mL/min/1.73 m(2)) 1 Kidney damage with normal or decreased GFR 90 2 Kidney damage with mild decrease in GFR 60-89 3 Moderate decrease in GFR 30-59 4 Severe decrease in GFR 15-29 5 Kidney failure <15 (or dialysis) 3 SEE RESULT BELOW Name: LUISANA TREVIÑO : [address]: Doni Jacob MD Acct: [id number] Unit: [id number] AGE: 33 Location: [facility] Re10/20/18 SEX: M Status: REG REF SPEC: [id number] ALVIN: 10/20/1835 [facility] DR: Doni Jacob MD REQ: [id number] RECD: 10/20/18 STATUS: COMP MORRIS DR: Sal Nation MD _ SOURCE: URINE [facility]: ORDERED: Urine Culture COMMENTS: [id number] ORDERED 05/21/2018 ENTERED 05/22/2018 EXPIRES 11/18/2018 CC: RESULTS TO [facility] Urine Source: Random Procedure Result Reported Site Urine Culture Final 10/22/18- 0840 ML Organism 1 ENTEROCOCCUS FAECALIS [place] Count 75-100,000 (Many) CFU/ML 1. ENTEROCOCCUS FAECALIS M.I.C. RX --------- ------ Ampicillin <=2 S Penicillin 2 S Ciprofloxacin <=0.5 S Gentamicin High Level S Levofloxacin 0.5 S Linezolid 2 S Nitrofurantoin <=16 S * Quinupristin/Dalfopristin 8 R * Streptomycin High Level S Tetracycline <=1 S Doxycycline - Deduced S * Minocycline - Deduced S Tigecycline <=0.12 S Vancomycin 1 S Imipenem-Deduced S * Ampicillin/Sulbactam-Deduced S CONTINUED ON NEXT PAGE DEPARTMENT OF PATHOLOGY, [address] [place] [address] Jeff Liz M.D. Director [facility] # [id number] Patient: LUISANA TREVIÑO [id number] (Continued) Specimen: [id number] Collected: 10/20/18 Received: 10/20/18 (Continued) Procedure Result Reported Site Urine Culture Final (continued) * These antibiotics are not available in the [facility] Formulary Contact the Microbiology Department for any additional antibiotic reporting. * ML - Main Lab . END OF REPORT DEPARTMENT OF PATHOLOGY, [address] [place] [address] Jeff Liz M.D. Director [facility] # [id number] Procedures Description No Information Available Medical Devices Description No Information Available Encounters Type Date Location Provider Dx Diagnosis Office Visit 01/27/2019 [facility] Office Sal Beltran G40.909 Epilepsy, unsp , not 10:20a Jearrdo Nation intractable, without status epilepticus G80.8 Other cerebral palsy F81.9 Developmental disorder of scholastic skills, unspecified N39.0 Urinary tract infection, site not specified L70.0 Acne vulgaris Office Visit 11/22/2018 9:15a Main Office Lisa Nicholson, N39.0 Urinary tract DELINQU[employer] COUNSELOR infection, site not specified Office Visit 11/03/2018 11:00a [facility] Office Catrina Gale, J01.90 Acute sinusitis, [place] unspecified Office Visit 09/16/2018 8:10a [facility] Office Sal Beltran J09.x3 Influenza due to Jerardo Nation ident novel influenza A virus w GI manifest Assessments Date Code Description Provider 03/02/2019 G40.909 Epilepsy, unspecified, not intractable, SPENCER Patino without status epile 01/27/2019 G40.909 Epilepsy, unspecified, not intractable, Sal Nation M.D. without status epile 01/27/2019 G80.8 Other cerebral palsy Sal Nation M.D. 01/27/2019 F81.9 Developmental disorder of scholastic Sal Nation M.D. skills, unspecified 01/27/2019 N39.0 Urinary tract infection, site not Sal Nation M.D. specified 01/27/2019 L70.0 Acne vulgaris Sal Nation M.D. 11/22/2018 N39.0 Urinary tract infection, site not GREGORY [place] specified 11/03/2018 J01.90 Acute sinusitis, unspecified Catrina Gale, SPENCER 09/16/2018 J09.x3 Influenza due to identified novel Sal Nation M.D. influenza A virus with gas Plan of Treatment Future Appointment(s):03/11/2019 1:40 pm - Sal Nation M.D. at [facility] [id number]/04/2019 10:00 am - Sal Nation M.D. at [facility] [id number] - Catrina Gale, PAG40.909 Epilepsy, unspecified, not intractable, without status epileComments:Contine Lamictal [address] Joyce as scheduled in March. Return as scheduled or sooner if neededAllComments: PCMHMedication Management Patient Understands medications he's taking? Yes Are there Barriers to Adherence? No Has the patient been asked about herbal supplements and therapies, and OTC meds? Yes Care Plan1. Patient has been queried about patient's goals/preferences and functional/ lifestyle goals at relevant visits. Yes If relevant, describe: N/A2. Treatment goals as explained to the patient: above3. Are there barriers to meeting treatment goals? No If Yes, please describe:4. Self-Management goals as described to the patient: Yes As always, we strongly encourage a healthy diet and making physical activity a part of your every day life. If you have questions about how or where to start, please contact the office. Functional Status Description No Information Available Mental Status Description No Information Available Referrals Description No Information Available
--- OUTSIDE RECORDS SUMMARY | 2019-04-23 18:11 | XMS REPORT | Continuity of Care Document ---
:1985 External Reference #:[id number] Author Name Sal Sanchez M.D. Address [address] [place] [address] Care Team Providers Name Role Phone Sal Nation M.D. - Family Care Team Information Survey Crew Chief Medicine Problems Active Problems Provider Date Perforation of tympanic membrane Sal Sanchez M.D. Onset: 04/02/2011 Hearing loss Sal Sanchez M.D. Onset: 04/02/2011 Acute suppurative otitis media without Sal Sanchez M.D. Onset: spontaneous rupture of ear drum Acute upper respiratory infection Sal Sanchez M.D. Onset: 2011 Impacted cerumen Sal Sanchez M.D. Onset: 03/30/2013 Infective otitis externa Sal Sanchez M.D. Onset: 06/01/2013 Social History Type Date Description Comments Sex Unknown Tobacco Use Start: Unknown Never Smoked Cigarettes Tobacco Use Start: Unknown has never smoked cigars Tobacco Use Start: Unknown has never smoked a pipe Smokeless Tobacco has never used smokeless tobacco ETOH Use does not drink alcohol Tobacco Use Start: Unknown Patient has never smoked Smoking Status Reviewed: 02/22/19 Patient has never smoked Allergies, Adverse Reactions, Alerts Active Allergies Reaction Severity Comments Date Clindamycin 12/22/2004 Cipro 04/25/2010 Bactrim 12/10/2017 Medications Active Medications SIG Qnty Indications Ordering Provider Date Alfuzosin HCL ER 1 by mouth every Sal Nation 10mg day Jearrdo Beltran Tablets ER 24HR Centrum Adults as directed Sal Nation Tablets Jerardo Beltran Amy Allergy 1 by mouth every [place], [place] 180mg day Jerardo Beltran Tablets Lamictal 1 by mouth at at [facility], [place] 100mg Tablets bedtime Jerardo Beltran Singulair 1 by mouth every [facility], [place] 10mg Tablets day Jerardo Beltran Miralax as directed [facility] 3350NF Powder Jerardo Beltran Prevident [address] [facility] Sensitive Jerardo Beltran 1.1-5% Paste Levetiracetam [address] [facility] 500mg Tablets a day Jerardo Beltran Lactulose [facility] Encephalopathy Jerardo Beltran 10GM/15ML Solution Ranitidine HCL [facility] 75mg/5ML Jerardo Beltran Syrup Immunizations CPT Code Status Date Vaccine Lot # [id number] Given Unknown Prevnar 13 For Intramuscular Use 48002 Given Unknown Influenza Virus Vaccine, 3 Years Of Age And Above, Intramuscular Vital Signs Date Vital Result Comment 02/23/2019 11:08am Weight 152.00 lb Weight 68.947 kg Height 67 inches 5'7" Height in cm's 170.2 cm BMI (Body Mass Index) 23.8 kg/m2 08/19/2018 10:49am Weight 152.00 lb Weight 68.947 kg Height 67 inches 5'7" Height in cm's 170.2 cm BMI (Body Mass Index) 23.8 kg/m2 Results Description No Information Available Procedures Date Code Description Status 12/15/2018 14748 Intradermals Completed 12/05/2018 99823 Allergy Extract/Prof. Services Completed Medical Devices Description No Information Available Encounters Type Date Location Provider Dx Diagnosis Office Visit 02/23/2019 Gay,Cuauhtemoc Robertson H61.23 Impacted cerumen, 10:45a 07/15/07 Jerardo Sanchez bilateral J30.2 Other seasonal allergic rhinitis Assessments Date Code Description Provider 02/23/2019 H61.23 Impacted cerumen, bilateral Sal Sanchez M.D. 02/23/2019 J30.2 Other seasonal allergic rhinitis Sal Sanchez M.D. 12/15/2018 J30.2 Other seasonal allergic rhinitis Allergy 12/15/2018 J30.1 Allergic rhinitis due to pollen Allergy 12/05/2018 J30.2 Other seasonal allergic rhinitis Allergy 12/05/2018 J30.1 Allergic rhinitis due to pollen Allergy Plan of Treatment 02/23/2019 - Sal Sanchez M.D.H61.23 Impacted cerumen, bilateralComments:The patient's ears looked quite good today. I cleaned the left ear today.J30.2 Other seasonal allergic rhinitisComments:He seems to be doing well with this and our allergy nurse will make a new vial for him. Functional Status Description No Information Available Mental Status Description No Information Available Referrals Description No Information Available
[2019-04-23 18:21] LABS: ABS Eosinophils 0.1 10^3/ul (0-0.6); ABS Lymphocytes 1.3 10^3/ul (1.0-4.8); ABS Monocytes 0.3 10^3/ul (0-0.8); ABS Neutrophils 1.6 10^3/ul (1.5-7.7); Eosinophil % 2.2 %; Hematocrit 45 % (42-52); Hemoglobin 14.8 g/dL (14.0-18.0); Lymphocyte % 39.8 %; Mean Corpuscular HGB Conc 33 g/dL (31-36); Mean Corpuscular Hemoglobin 31 pg (27-31); Mean Corpuscular Volume 93 fL (80-94); Mean Platelet Volume 8.5 fL (7.4-10.4); Nucleated Red Blood Cells % 0.1; Platelet Count 153 10^3/uL (150-450); Red Blood Count 4.79 10^6 /uL (4.18-5.48); Red Cell Distribution Width 15 % (10-15); White Blood Count 3.2 10^3/uL (3.5-10.8)
[2019-04-23 18:38] LABS: INR 1.11 (0.82-1.09)
[2019-04-23 18:51] LABS: Albumin 4.2 g/dL (3.2-5.2); Albumin/Globulin Ratio 1.6 (1-3); BUN/Creatinine Ratio 18.4 (8-20); Calcium 9.6 mg/dL (8.6-10.3); EGFR African American 123.8 (>60); EGFR Non-African American 102.3 (>60); Globulin 2.7 g/dL (2-4); Magnesium 1.9 mg/dL (1.9-2.7); Potassium 4.2 mmol/L (3.5-5.0); Total Bilirubin 0.2 mg/dL (0.2-1.0); Total Protein 6.9 g/dL (6.4-8.9)
[2019-04-23 19:08] LABS: TSH (Thyroid Stimulating Horm) 1.06 mcIU/mL (0.34-5.60)
[2019-04-23 19:58] LABS: Urine Appearance Clear; Urine Bilirubin Negative (Negative); Urine Blood Negative (Negative); Urine Color Straw; Urine Glucose Negative (Negative); Urine Ketones Negative (Negative); Urine Nitrite Negative (Negative); Urine Protein Negative (Negative); Urine Specific Gravity 1.006 (1.010-1.030); Urine Urobilinogen Negative (Negative)
[2019-04-23] MEDS ORDERED: levETIRAcetam LIQ* 500 MG/5 ML UDC G TUBE ONE (21:28)
[2019-04-23] MEDS ORDERED: lamoTRIgine TAB(*) 100 MG G TUBE ONE (21:29)
[2019-04-23] MEDS ORDERED: guaiFENesin 100 mg/5 ml LIQ unit dose cup PO PRN (23:08)
[2019-04-23] MEDS ORDERED: diPHENhydraMINE PO* 25 MG PRN (23:08)
[2019-04-23] MEDS ORDERED: Ibuprofen ADULT LIQ* 600 MG/30 ML UDC PO PRN (23:08)
[2019-04-23] MEDS ORDERED: Hydrocortisone 1% CREAM* 30 GM TUBE TOPICAL PRN (23:08)
[2019-04-23] MEDS ORDERED: Polyethylene Glycol 3350* 17 GM PACKET PO PRN (23:08)
[2019-04-23] MEDS ORDERED: Sodium Phosphate ADULT ENEMA* 118 ml bottle PR PRN (23:08)
[2019-04-23] MEDS ORDERED: EPINEPHRINE 1 MG/ML 1 ML VIAL IM PRN (23:08)
[2019-04-23] MEDS ORDERED: Bisacodyl SUPP* 10 MG SUPP PR PRN (23:08)
[2019-04-23] MEDS ORDERED: Neosporin TOPICAL OINT* 1 EA PACKET TOPICAL PRN (23:08)
[2019-04-23] MEDS ORDERED: CLOTRIMAZOLE 1% TOPICAL PRN (23:08)
[2019-04-23] MEDS ORDERED: NUTRITIONAL SUPPLEMENT G TUBE PRN (23:08)
[2019-04-23] MEDS ORDERED: NS 0.9% 1000 ML** 1,000 ML IV SCH (23:30)
[2019-04-23] MEDS ORDERED: Diazepam (ANTICONVULSANT)(*) 10 MG RECTAL.GEL PR PRN (23:37)
--- NOTE | 2019-04-24 03:26 | HP ---
CC: Dr. Sal Nation * ADMISSION HISTORY AND PHYSICAL: DATE OF ADMISSION: 04/23/19 PRIMARY CARE PHYSICIAN: Dr. Sal Nation. CHIEF COMPLAINT: Seizure, lasting over 20 minutes. HISTORY OF PRESENT ILLNESS: This is a 33-year-old male who is a [place] resident with history of cerebral palsy, seizures disorder, who normally has recurrent seizures lasting less than 5 minutes but today's episode was lasting for over 20 minutes, so the staff is concerned and the patient was sent for further evaluation. The patient was also recently diagnosed with UTI and was told that his previous documentation suggests that his seizures are associated with fever and UTI. According to the urologist who evaluated him, they are suspecting the patient is having prostatitis and is recommended to be started on 2-week course of Augmentin. The staff who was present at bedside stated that his usual seizures are tonic-clonic. He did not have any tongue biting, any urinary or stool incontinence, but they did notice his lips were very blue, so the patient was sent in for further evaluation to [facility]. PAST MEDICAL HISTORY: Includes cerebral palsy and seizure disorder as mentioned. He also has urinary retention, for which he gets straight cath 4 times a day and was recently diagnosed with prostatitis as mentioned. He is currently on Augmentin. PAST SURGICAL HISTORY: Includes tonsillectomy, Hay fundoplication, PEG placement for meds and supplementation, and tympanostomy tubes placement. HOME MEDICATIONS: As listed include: 1. Fleet Enema p.r.n. for constipation. 2. Bisacodyl p.r.n. for constipation. 3. Hytone cream topical b.i.d. for itching. 4. Clotrimazole topical daily for rash. 5. Ibuprofen liquid p.o. p.r.n. for moderate pain. 6. Triple Antibiotic cream p.r.n. for any wound care. 7. Benadryl via G-tube for any allergy symptoms. 8. Nutrition supplement Resource 2.0 one liquid via G-tube at 10 o'clock daily. 9. Dextromethorphan 10 mL p.o. q.12 hours p.r.n. for cough. 10. Nystatin ointment topical t.i.d. 11. Aczone 7.5% topical b.i.d. 12. Epinephrine injection daily p.r.n. for any allergic symptoms. 13. Fluoride toothpaste p.o. daily. 14. Tretinoin 0.04% topical at bedtime. 15. Petroleum white ointment topical at bedtime. 16. Keppra 1500 mg via G-tube b.i.d. 17. Lamictal 100 mg via G-tube b.i.d. 18. Multivitamin via G-tube daily. 19. Benzaclin with pump 1 to 5% topical daily. 20. Benzoyl peroxide 5.5% topical twice a week. 21. Alfuzosin 10 mg via G-tube daily. 22. MiraLAX 6 teaspoons p.o. daily p.r.n. for constipation. 23. Amy 180 mg via G-tube daily. 24. Erythromycin topical daily. 25. Zantac solution 10 mL via G-tube daily. 26. Singulair 10 mg via G-tube daily. ALLERGIES: The patient is documented to be allergic to CIPROFLOXACIN, CLINDAMYCIN, BACTRIM, and SEASONAL HAY FEVER. FAMILY HISTORY: Noncontributory. SOCIAL HISTORY: No smoking, alcohol, or drug use. He resides in the [facility]. He is Gnosticist and he is on mechanically soft kosher diet, and he is full code status. PHYSICAL EXAMINATION GENERAL: The patient is awake according to the staff who was at bedside at his normal state, nonverbal. VITAL SIGNS: BP was 103/73, heart rate 60, respiration rate 18, saturating 93% on room air, temperature was documented at 97.5. HEAD AND NECK: Bilateral pupils are reactive. Oral examination: There was some food in his oropharynx. Tongue was protruding. There was no tongue biting noted. It is recommended to the staff to remove unchewed food from the mouth to prevent any aspiration. LUNGS: Clear to auscultation bilaterally. No wheezing, rhonchi, or rales. HEART: S1, S2. Regular rate and rhythm. ABDOMEN: Soft. There was a PEG tube in place, which was clean and there was no evidence of any inflammatory response. EXTREMITIES: The patient folded his legs but upon extension, there was no edema. There was evidence of footdrop, but otherwise no erythema or edema noted. DIAGNOSTIC STUDIES/LAB DATA: CBC shows mild leukopenia with white count of 3.2. Coagulation profile shows minimally elevated INR of 1.11. Comprehensive metabolic panel is unremarkable except for mild changes in AST and ALT. Urinalysis was showing low specific gravity, clear urine, negative for any leuk esterase or nitrites. IMPRESSION: This is a 33-year-old gentleman with cerebral palsy, recurrent seizures, came in due to seizure lasting over 20 minutes. There is some confusion regarding his Lamictal dose as the patient was supposed to be on Lamictal 100 in the morning and 125 at night but was only getting 100 b.i.d. Neurology was consulted by the emergency room staff, who recommended the patient 's Lamictal dose should be changed to 125 at night and also to increase his Keppra from 1500 b.i.d. to 1500 in the morning and 2000 at bedtime. ASSESSMENT: 1. Seizure lasting for 20 minutes. As mentioned, we will follow up with Neurology recommendations with increase in Keppra and to adjust the home dose of Lamictal. Dr. Castro also recommended Diastat rectal gel which recommended dose is 0.2 mg/kg, which comes out to 14 mg. For now, we will start the patient on a 10 mg dose and then increase as necessary and the frequency is q.6 hours p.r.n. for any seizures. 2. Prostatitis. As recommended by the urologist, we will continue the Augmentin, although the UA at this point did not show any obvious changes. The patient did grow extended-spectrum beta-lactamase Escherichia coli from urine culture, but a repeat culture on 04/20/19 were negative. The patient will follow up with his urologist post discharge. 3. History of cerebral palsy, on mechanical soft diet, but this diet will be administered by the staff from [facility] as they know the patient's swallowing status and his limitations. 4. Gastroesophageal reflux disease. Restart home medications. 5. DVT prophylaxis, on sequential compression device. 6. Code status. Full code. [id number]/[facility] #: [id number] [facility]
[2019-04-24 06:41] LABS: Hematocrit 46 % (42-52); Hemoglobin 15.6 g/dL (14.0-18.0); Mean Corpuscular HGB Conc 34 g/dL (31-36); Mean Corpuscular Hemoglobin 32 pg (27-31); Mean Corpuscular Volume 93 fL (80-94); Mean Platelet Volume 8.6 fL (7.4-10.4); Platelet Count 153 10^3/uL (150-450); Red Blood Count 4.94 10^6 /uL (4.18-5.48); Red Cell Distribution Width 15 % (10-15); White Blood Count 3.7 10^3/uL (3.5-10.8)
[2019-04-24 06:45] LABS: ABS Eosinophils 0.1 10^3/ul (0-0.6); ABS Monocytes 0.3 10^3/ul (0-0.8); ABS Neutrophils 1.4 10^3/ul (1.5-7.7); Eosinophil % 2.1 %; Lymphocyte % 52.3 %; Nucleated Red Blood Cells % 0.1
[2019-04-24 06:56] LABS: BUN/Creatinine Ratio 16.3 (8-20); Calcium 9.2 mg/dL (8.6-10.3); EGFR African American 125.5 (>60); EGFR Non-African American 103.7 (>60); Potassium 4.3 mmol/L (3.5-5.0)
[2019-04-24] MEDS ORDERED: levETIRAcetam LIQ* 500 MG/5 ML UDC G TUBE SCH (09:00)
[2019-04-24] MEDS ORDERED: FLUORIDE PO SCH (09:00)
[2019-04-24] MEDS ORDERED: Alfuzosin ER (NF) 10 MG TAB.ER PO SCH (09:00)
[2019-04-24] MEDS ORDERED: Famotidine SUSP ORALSYR 8 MG/ML G TUBE SCH (09:00)
[2019-04-24] MEDS ORDERED: DAPSONE 7.5% TOPICAL SCH (09:00)
[2019-04-24] MEDS ORDERED: Montelukast Sodium TAB* 10 MG SCH (09:00)
[2019-04-24] MEDS ORDERED: lamoTRIgine TAB(*) 100 MG G TUBE SCH ×2 (09:00→21:00)
[2019-04-24] MEDS ORDERED: BENZOYL PEROXIDE TOPICAL SCH (09:00)
[2019-04-24] MEDS ORDERED: Cetirizine* 10 MG TAB PO SCH (09:00)
[2019-04-24] MEDS ORDERED: Multivitamins ADULT w/MIN LIQ* 15 ML UDC G TUBE SCH (09:00)
[2019-04-24] MEDS ORDERED: CLINDAMYCIN TOPICAL SCH (09:00)
[2019-04-24] MEDS: Nystatin OINT* 15 GM TOPICAL SCH ×2 (09:24→14:03)
--- NOTE | 2019-04-24 13:36 | PN ---
Subjective Date of Service: 04/24/19 Interval History: Mr. Diaz is nonverbal and unable to provide any subjective data. Aide at the bedside is very familiar with him and states that he appears at his baseline. No further seizure activity overnight. No concerns from nursing. Family History: Unchanged from Admission Social History: Unchanged from Admission Past Medical History: Unchanged from Admission Objective Active Medications: Bisacodyl (Dulcolax Supp*) 10 mg TN DAILY PRN CONSTIPATION Cetirizine HCl (Zyrtec*) 10 mg PO DAILY MARY; Protocol Diazepam (Diastat Acudial(*)) 10 mg TN Q6H PRN SEIZURES Diphenhydramine HCl (Benadryl Po*) 25 mg .SEE ORDER QPM PRN Allergy Symptoms Epinephrine HCl (Adrenalin 1 Mg/Ml) 0.3 mg IM DAILY PRN Allergy Symptoms ( ANAPHYLAXIS) Famotidine (Pepcid Susp 8mg/Ml) 20 mg G TUBE DAILY MARY Guaifenesin (Robitussin*) 5 ml PO Q6H PRN COUGH Hydrocortisone (Hytone Cream 1%*) 1 applic TOPICAL BID PRN ITCHING Sodium Chloride (Ns 0.9% 1000 Ml) 1,000 mls @ 75 mls/hr IV PER RATE MARY Ibuprofen (Motrin Liq Adult*) 400 mg PO Q6HR PRN PAIN - MODERATE Lamotrigine (Lamictal Tab(*)) 100 mg G TUBE DAILY MARY Lamotrigine (Lamictal Tab(*)) 100 mg G TUBE BEDTIME MARY Lamotrigine (Lamictal Tab(*)) 25 mg G TUBE BEDTIME MARY Levetiracetam (Keppra Liq*) 1,500 mg G TUBE DAILY MARY Levetiracetam (Keppra Liq*) 2,000 mg PO BEDTIME MARY Montelukast Sodium (Singulair Tab*) 10 mg .SEE ORDER DAILY MARY Multivitamins (Theragran W/Minerals Liq*) 15 ml G TUBE DAILY MARY Neomycin/Polymyxin/Bacitracin (Neosporin Top Oint Packet*) 1 ea TOPICAL DAILY PRN WOUND CARE Non-Formulary Medication (Tretinoin [Tretinoin]) 0.04 % TOPICAL BEDTIME MARY Nystatin (Nystatin Oint*) 1 applic TOPICAL TID MARY Petrolatum (Vaseline Jelly 13oz *) 1 applic TOPICAL BEDTIME MARY Polyethylene Glycol/Electrolytes (Miralax*) 17 gm PO DAILY PRN CONSTIPATION Sodium Biphosphate/Sodium Phosphate (Fleet Enema*) 1 bottle TN DAILY PRN CONSTIPATION Vital Signs - 8 hr 04/24/19 04/24/19 07:00 11:00 Temperature 97.3 F 97.3 F Pulse Rate 65 58 Respiratory 18 20 Rate Blood Pressure 112/78 112/67 (mmHg) O2 Sat by Pulse 93 100 Oximetry Oxygen Devices in Use Now: None Appearance: Middle-aged male lying in bed in NAD Ears/Nose/Mouth/Throat: Mucous Membranes Moist Neck: NL Appearance and Movements; NL JVP, Trachea Midline Respiratory: Symmetrical Chest Expansion and Respiratory Effort, Clear to Auscultation Cardiovascular: NL Sounds; No Murmurs; No JVD, RRR Abdominal: NL Sounds; No Tenderness; No Distention Extremities: No Edema Neurological: - - Nonverbal Lines/Tubes/Other Access: Clean, Dry and Intact Peripheral IV Nutrition: Taking PO's Result Diagrams: 04/24/19 06:15 04/24/19 06:15 Assess/Plan/Problems-Billing Assessment: Mr. Diaz is a 33 yo M with PMH of CP, seizures, chronic urinary retention, and recent diagnosis of prostatitis; who presented to the ED after a 20 minute seizure and was admitted for further evaluation. - Patient Problems (1) Seizure disorder Code(s): G40.909 - EPILEPSY, UNSP, NOT INTRACTABLE, WITHOUT STATUS EPILEPTICUS Comment: - Presented with seizure lasting >20 minutes - No further seizure activity since admission - Appreciate Neuro consult - Continue Milo Dumont (2) Prostatitis Code(s): N41.9 - INFLAMMATORY DISEASE OF PROSTATE, UNSPECIFIED Comment: - Diagnosed prior to admission by Dr. Samayoa and placed on 2 week course of Augmentin - Continue Augmentin (3) Cerebral palsy Code(s): G80.9 - CEREBRAL PALSY, UNSPECIFIED Comment: - [place] aide at bedside (4) Neurogenic bladder Code(s): N31.9 - NEUROMUSCULAR DYSFUNCTION OF BLADDER, UNSPECIFIED Comment: - Continue home straight cathing schedule (5) DVT prophylaxis Comment: - SCDs (6) Full code status Code(s): Z78.9 - OTHER SPECIFIED HEALTH STATUS Comment: Status and Disposition: Inpatient. Anticipate d/c home when medically stable. Attending: Martha Luna
[2019-04-24 16:22] VITALS: BP 116/81
[2019-04-24] MEDS ORDERED: Influenza VAC *QUAD* 2019-20* 0.5 ML SYRINGE IM ONE (18:00)
[2019-04-24] MEDS ORDERED: levETIRAcetam LIQ* 500 MG/5 ML UDC PO SCH (21:00)
[2019-04-24] MEDS ORDERED: Petrolatum 390 GM* 390 GM GEL TOPICAL SCH (21:00)
[2019-04-24] MEDS ORDERED: lamoTRIgine TAB(*) 25 MG G TUBE SCH (21:00)
[2019-04-24] MEDS ORDERED: TRETINOIN TOPICAL SCH (21:00)
[2019-04-24] MEDS ORDERED: Amoxicillin/Clavulanate TAB* 875 MG PO SCH (21:00)
--- NOTE | 2019-04-24 22:48 | DS ---
CC: Dr. Sal Nation; Dr. Terrance Minor * DISCHARGE SUMMARY: DATE OF ADMISSION: 04/23/19 DATE OF DISCHARGE: 04/24/19 PRIMARY CARE PROVIDER: Dr. Sal Nation. OUTPATIENT NEUROLOGIST: Dr. Terrance Minor. ATTENDING PHYSICIAN: Dr. Martha Luna * (dictated by Shaneka Boothe NP). PRIMARY DIAGNOSES: 1. Seizure. 2. Prostatitis. SECONDARY DIAGNOSES: 1. Cerebral palsy. 2. Gastroesophageal reflux disease. 3. Neurogenic bladder. STUDIES WHILE IN THE HOSPITAL: None. HISTORY OF PRESENT ILLNESS AND HOSPITAL COURSE: Mr. Diaz is a 33-year-old male with past medical history of cerebral palsy, seizures, urinary retention, and recently diagnosed prostatitis, who presented to the emergency room on 04/23 due to a breakthrough seizure. Please see the history and physical by Dr. De La Rosa for complete summary of the events leading up to this hospitalization. In short, the patient has a known history of seizures and does typically have recurrent seizures lasting less than 5 minutes, though at the patient's [facility], he was noted to have a seizure lasting longer than 20 minutes until they presented to the emergency room. In the emergency room, the patient did not display any seizure activity. Neurology was consulted and did recommend some dosing changes in the patient's Keppra and Lamictal and the patient was admitted by the hospitalist service for observation. The patient had an uneventful night and there was no seizure activity. Per the patient's home hospice aide at bedside, this morning he appears at his baseline. I did speak with Dr. Castro today who reviewed the patient's case and spoke with Dr. Minor, the patient's outpatient neurologist and they did recommend dose increases of both the Lamictal and Keppra going forward, but advised that the patient was stable for discharge as he has not had any recurrent seizures while here in the hospital. For physical exam, please see my progress note for today. Mr. Diaz is stable for discharge today. Vital signs are as follows: Temp 97.3 , heart rate 56, respiratory rate 16, oxygen saturation is 100% on room air, blood pressure 116/81. DISCHARGE MEDICATIONS: New Medication: 1. Diastat 10 mg TN once p.r.n. seizures. Changed medications: 1. Lamictal 150 mg via G-tube b.i.d. (previously was 100 and 125 mg). 2. Keppra 2000 mg via G-tube at bedtime (previously was 1500 mg at bedtime). Continued medications: 1. Keppra 1500 mg via G-tube in the morning. 2. Augmentin 875 mg via G-tube b.i.d. 3. Dulcolax suppository 10 mg TN daily p.r.n. constipation. 4. Delsym 10 mL p.o. q.12 hours p.r.n. cough. 5. Benadryl 25 mg via G-tube at bedtime p.r.n. allergy symptoms. 6. EpiPen 0.3 mg injection once p.r.n. allergy symptoms. 7. Fexofenadine 180 mg via G-tube daily. 8. Hydrocortisone 1% cream one application topically b.i.d. p.r.n. itching. 9. Ibuprofen 400 mg via G-tube q.6 hours p.r.n. pain. 10. Singulair 10 mg via G-tube daily. 11. Multivitamin 1 tab via G-tube daily. 12. Triple Antibiotic ointment 1 application topically daily p.r.n. wound care. 13. Nystatin ointment one application topically t.i.d. 14. Aquaphor one application topical at bedtime. 15. MiraLAX 6 teaspoons via G-tube daily p.r.n. constipation. 16. Ranitidine 10 mg via G-tube daily. 17. Fleet Enema 1 enema TN daily p.r.n. constipation. 18. Tretinoin 0.04% one application topical at bedtime. 19. Alfuzosin 10 mg via G-tube daily. 20. Benzoyl peroxide 5.5% one application topically twice per week. 21. Clindamycin gel one application topically daily. 22. Clotrimazole 1% one application topically daily p.r.n. rash. 23. Dapsone 7.5% one application topically b.i.d. 24. Erythromycin 2% one application topical daily. 25. Fluoride 1.1% one application orally daily. DISCHARGE PLAN: Mr. Diaz will be discharged back home to [facility]. Activities will be as tolerated. He can resume his usual pureed diet. Medications are noted above. The patient's anticonvulsant dosing has been increased per Neurology recommendation. The Lamictal will be 150 b.i.d. and the Keppra will be 1500 mg in the morning and 2000 mg at bedtime. The nurse at [facility] will need to follow up with Dr. Minor via phone next week, at which time he will likely check drug levels and may make any further adjustments. I have sent in a prescription for Diastat in the event that the patient does have another prolonged breakthrough seizure. I did call the patient's father, who is a physician, and I did discuss the changes with him and he is in agreement. The patient should follow up with his primary care provider in the next 4 to 7 days and follow up with Dr. Minor as described above. He should return to the emergency room or nearest hospital for any worsening symptoms, shortness of breath, lightheadedness, dizziness, chest discomfort, high fevers, chills, night sweats, loss of consciousness, or any other worrisome signs or symptoms. DISCHARGE CONDITION: Stable. DISCHARGE DISPOSITION: Home ([facility]). This is a summarized report of a complex medical history and hospital stay. For further details, please see the entire medical record. TIME SPENT: Approximately 50 minutes was spent on this discharge. SHANEKA BOOTHE NP [id number]/[facility] #: [id number] [place]
[2019-04-25] MEDS ORDERED: BENZOYL PEROXIDE TOPICAL SCH (09:00)
[2019-04-25 15:39] LABS: Levetiracetam 25.1 mcg/mL
[2019-04-25 15:49] LABS: Lamotrigine 4.1 mcg/mL (2.5 - 15.0)
== END 2019-04-24 18:18 | disposition home or self-care (01) | DRG 53 ==
LOC: ED 17:24 → MED 23:19
PROVIDERS: ADMIT Internal Medicine; ATTEND Internal Medicine
DX: G40.909 Epilepsy, unspecified, not intractable, without status epilepticus (principal); J30.2 Other seasonal allergic rhinitis; K21.9 Gastro-esophageal reflux disease without esophagitis; N31.9 Neuromuscular dysfunction of bladder, unspecified; N41.9 Inflammatory disease of prostate, unspecified; G80.9 Cerebral palsy, unspecified; R33.8 Other retention of urine; Z87.440 Personal history of urinary (tract) infections; Z88.1 Allergy status to other antibiotic agents; Z88.2 Allergy status to sulfonamides; Z88.4 Allergy status to anesthetic agent; Z23 Encounter for immunization
CPT/HCPCS: 36415; 80048; 80053; 80175; 80177; 81003; 83605; 83735; 84443; 85025; 85610; 90686; 99284; A9270-GY

== ENCOUNTER 2020-11-27 15:43 | Inpatient (IN) ==
[2020-11-27] MEDS ORDERED: NS 0.9% 1000 ml BAG 1,000 ML IV ONE (16:09)
[2020-11-27 16:35] LABS: Urine Appearance Cloudy; Urine Bilirubin Negative (Negative); Urine Blood Negative (Negative); Urine Color Yellow; Urine Glucose Negative (Negative); Urine Ketones Negative (Negative); Urine Nitrite Positive (Negative); Urine Protein Negative (Negative); Urine Specific Gravity 1.012 (1.002-1.030); Urine Urobilinogen Negative (Negative)
[2020-11-27 16:42] LABS: Urine Bacteria 1+ (Absent); Urine Red Blood Cell Trace(0-2/hpf) (Absent); Urine Squamous Epithelial Cell Present (Absent); Urine White Blood Cell 3+(>20/hpf) (Absent)
[2020-11-27] MEDS ORDERED: cefTRIAXone VIAL 1,000 MG VIAL IM ONE (17:38)
[2020-11-27 17:41] LABS: ALT 122 U/L (7-52); Albumin 4.3 g/dL (3.2-5.2); Albumin/Globulin Ratio 1.5 (1-3); Alkaline Phosphatase 106 U/L (34-104); Blood Urea Nitrogen 11 mg/dL (6-24); C Reactive Protein 3.49 mg/L (<8.01); CO2 Carbon Dioxide 30 mmol/L (22-32); Calcium 9.5 mg/dL (8.6-10.3); Chloride 102 mmol/L (101-111); Creatine Kinase 70 U/L (10-223); EGFR African American 122.3 (>60); EGFR Non-African American 101.1 (>60); Globulin 2.9 g/dL (2-4); Glucose 96 mg/dL (70-100); Sodium 137 mmol/L (135-145); Total Protein 7.2 g/dL (6.4-8.9)
[2020-11-27 17:44] LABS: ABS Lymphocytes 0.9 10^3/ul (1.0-4.8); ABS Monocytes 0.7 10^3/ul (0-0.8); ABS Neutrophils 8.5 10^3/ul (1.5-7.7); Anion Gap 5 mmol/L (2-11); Eosinophil % 0.4 %; Hematocrit 45 % (42-52); Hemoglobin 15.2 g/dL (14.0-18.0); Lymphocyte % 9.2 %; Mean Corpuscular HGB Conc 34 g/dL (31-36); Mean Corpuscular Hemoglobin 32 pg (27-31); Mean Corpuscular Volume 95 fL (80-94); Mean Platelet Volume 8.5 fL (7.4-10.4); Platelet Count 220 10^3/uL (150-450); Red Blood Count 4.76 10^6 /uL (4.18-5.48); Red Cell Distribution Width 14 % (10-15); White Blood Count 10.3 10^3/uL (3.5-10.8)
[2020-11-27] MEDS ORDERED: cefTRIAXone 1 gm/50 mL NS BAG 1 GM/50 ML BAG IV ONE (18:32)
[2020-11-27] MEDS ORDERED: levETIRAcetam 1000MG IVPREMIX 1,000 MG/100 ML BAG IVPB ONE (19:11)
[2020-11-27] MEDS ORDERED: NS 0.9% 1000 ml BAG 1,000 ML IV SCH (21:00)
[2020-11-27] MEDS ORDERED: Enoxaparin 40 MG/0.4 ML SYR SUBCUT SCH (22:00)
[2020-11-27] MEDS: NS 0.9% IVPB SCH (22:24)
[2020-11-27] MEDS: LEVETIRACETAM IVPB SCH (22:24)
[2020-11-27] MEDS: Meropenem 1 GM PREMIX(*) 1 GM/50 ML BAG IV SCH (22:34)
[2020-11-27 23:10] LABS: Magnesium 1.6 mg/dL (1.9-2.7); Potassium Redraw 4.3 mmol/L (3.5-5.0)
[2020-11-27] MEDS ORDERED: Magnesium Sulfate 2 gm BAG 2 GM/50 ML BAG IVPB ONE (23:15)
[2020-11-28] MEDS: Chlorhexidine MOUTHWASH 0.12% 15 ML UDC TOPICAL SCH ×4 (00:19→12:30)
[2020-11-28] MEDS ORDERED: Ibuprofen ADULT LIQ 600 MG/30 ML UDC PO ONE (03:31)
[2020-11-28] MEDS ORDERED: Lorazepam PYXIS KEY ONE ×2 (05:30→07:54)
[2020-11-28] MEDS ORDERED: LORazepam 2 mg VIAL 1 ml ONE ×2 (05:31→07:55)
[2020-11-28] MEDS ORDERED: Succinylcholine 200 mg VIAL 20 mg/ml 10 ml VIAL (200 mg) ONE ×3 (05:41→08:05)
[2020-11-28] MEDS ORDERED: Rocuronium 50 mg VIAL 10 mg/ml 5 ml VIAL (50 mg) ONE ×3 (05:42→08:05)
[2020-11-28] MEDS ORDERED: LORazepam 2 mg VIAL 1 ml IV PUSH ONE (05:52)
[2020-11-28] MEDS ORDERED: Lorazepam PYXIS KEY PRN ×2 (05:52→10:42)
[2020-11-28] MEDS: Meropenem 1 GM PREMIX(*) 1 GM/50 ML BAG IV SCH ×2 (06:21→13:53)
[2020-11-28 06:46] LABS: ABS Monocytes 0.8 10^3/ul (0-0.8); ABS Neutrophils 10.8 10^3/ul (1.5-7.7); Hematocrit 41 % (42-52); Hemoglobin 13.8 g/dL (14.0-18.0); Lymphocyte % 7.9 %; Mean Corpuscular HGB Conc 33 g/dL (31-36); Mean Corpuscular Hemoglobin 32 pg (27-31); Mean Corpuscular Volume 94 fL (80-94); Mean Platelet Volume 8.1 fL (7.4-10.4); Platelet Count 234 10^3/uL (150-450); Red Blood Count 4.39 10^6 /uL (4.18-5.48); Red Cell Distribution Width 14 % (10-15); White Blood Count 12.6 10^3/uL (3.5-10.8)
[2020-11-28 06:51] LABS: INR 1.3 (0.82-1.09)
[2020-11-28 07:04] LABS: Albumin 4.2 g/dL (3.2-5.2); Albumin/Globulin Ratio 1.6 (1-3); Calcium 9.1 mg/dL (8.6-10.3); EGFR African American 120.7 (>60); EGFR Non-African American 99.7 (>60); Globulin 2.7 g/dL (2-4); Indirect Bilirubin 0.2 mg/dL (0.3-1.0); Total Bilirubin 0.3 mg/dL (0.2-1.0); Total Protein 6.9 g/dL (6.4-8.9)
[2020-11-28] MEDS ORDERED: Propofol 10 MG/ML 20 ML BTL ONE (08:05)
[2020-11-28] MEDS ORDERED: Propofol 10 mg/ml 100 ML BTL 100 ML ONE (08:12)
[2020-11-28] MEDS: Propofol 10 mg/ml 100 ML BTL 100 ML IV SCH ×2 (08:15→13:51)
[2020-11-28] MEDS ORDERED: LORazepam 2 mg VIAL 1 ml IV PUSH PRN ×2 (08:23→10:42)
[2020-11-28] MEDS ORDERED: NORMOSOL-R pH 7.4 1000 mL BAG 1,000 ML IV SCH ×2 (09:00→09:52)
[2020-11-28] MEDS ORDERED: Propofol 10 mg/ml 100 ML BTL 100 ML IV SCH (09:00)
[2020-11-28] MEDS ORDERED: Famotidine SUSP ORALSYR 8 MG/ML PO SCH (09:00)
[2020-11-28] MEDS ORDERED: Vancomycin 1,000 MG in NS 0.9% 250 ml 250 ML IVPB ONE (09:09)
[2020-11-28] MEDS ORDERED: Vancomycin 1,500 MG in NS 0.9% 250 ml 250 ML IVPB ONE (09:13)
[2020-11-28] MEDS ORDERED: Propofol* 20 ML VIAL - FOR IV LINE PRIMING ONLY SCH (09:30)
[2020-11-28] MEDS: LEVETIRACETAM IVPB SCH (09:43)
[2020-11-28] MEDS: NS 0.9% IVPB SCH (09:43)
[2020-11-28 09:59] LABS: Magnesium 2.3 mg/dL (1.9-2.7)
[2020-11-28] MEDS ORDERED: Vancomycin 1,250 MG in NS 0.9% 250 ml 250 ML IVPB ONE (10:00)
[2020-11-28] MEDS ORDERED: Acyclovir IV 600 MG in NS 0.9% 250 ml 250 ML IVPB SCH (10:00)
[2020-11-28] MEDS ORDERED: Vancomycin per Pharmacy 1 EA NOTE FOLLOW UP SCH (10:00)
[2020-11-28] MEDS ORDERED: NS 0.9% 1000 ml BAG 1,000 ML IV ONE (10:33)
[2020-11-28] MEDS: CMCS: Alfuzosin ER 10 mg TAB.ER (NF) 10 MG TAB.ER PO SCH ×2 (11:05→11:18)
[2020-11-28] MEDS ORDERED: Norepinephrine 16MCG/ML IVPRE 4,000 MCG/250 ML BAG IV ONE (11:34)
[2020-11-28] MEDS ORDERED: Norepinephrine 16MCG/ML IVPRE 4,000 MCG/250 ML BAG IV SCH (12:00)
[2020-11-28] MEDS ORDERED: NORMOSOL-R pH 7.4 1000 mL BAG 1,000 ML IV ONE (12:00)
[2020-11-28 16:41] VITALS: BP 122/89
[2020-11-28] MEDS ORDERED: Vancomycin 1,250 MG in NS 0.9% 250 ml 250 ML IVPB SCH (20:00)
[2020-11-29 16:12] LABS: Lamotrigine 6.9 mcg/mL (2.5 - 15.0)
[2020-11-29] MEDS ORDERED: Vancomycin Trough Check NOTE FOLLOW UP ONE (19:30)
== END 2020-11-28 16:30 | disposition short-term general hospital (02) | DRG 53 ==
LOC: ED 15:43 → ICU 21:12
PROVIDERS: ADMIT Hospitalist; ATTEND Internal Medicine

== ENCOUNTER 2021-01-13 18:50 | Inpatient (IN) ==
[2021-01-13] MEDS ORDERED: levETIRAcetam 500 MG IVPREMIX 500 MG/100 ML BAG IVPB ONE (19:26)
[2021-01-13 19:51] LABS: ABS Monocytes 0.3 10^3/ul (0-0.8); ABS Neutrophils 5.6 10^3/ul (1.5-7.7); Eosinophil % 0.1 %; Hematocrit 41 % (42-52); Lymphocyte % 14.4 %; Mean Corpuscular HGB Conc 34 g/dL (31-36); Mean Corpuscular Hemoglobin 32 pg (27-31); Mean Corpuscular Volume 93 fL (80-94); Mean Platelet Volume 6.9 fL (7.4-10.4); Platelet Count 458 10^3/uL (150-450); Red Blood Count 4.44 10^6 /uL (4.18-5.48); Red Cell Distribution Width 14 % (10-15)
[2021-01-13 20:02] LABS: Albumin 4.2 g/dL (3.2-5.2); Albumin/Globulin Ratio 1.1 (1-3); EGFR African American 110.5 (>60); EGFR Non-African American 91.3 (>60); Globulin 3.7 g/dL (2-4); Magnesium 2.1 mg/dL (1.9-2.7); Potassium 4.5 mmol/L (3.5-5.0); Total Bilirubin 0.2 mg/dL (0.2-1.0); Total Protein 7.9 g/dL (6.4-8.9)
[2021-01-13] MEDS ORDERED: cefTRIAXone 1 gm/50 mL NS BAG 1 GM/50 ML BAG IV ONE (20:16)
[2021-01-13] MEDS ORDERED: Ondansetron 4 mg VIAL 2 MG/ML 2 ml VIAL IV PRN (21:10)
[2021-01-13] MEDS ORDERED: Clotrimazole 1% CREAM 45 GM TOPICAL PRN (21:16)
[2021-01-13] MEDS ORDERED: Neosporin TOPICAL OINT PACKET TOPICAL PRN (21:16)
[2021-01-13] MEDS ORDERED: Ibuprofen ADULT LIQ 600 MG/30 ML UDC FEED TUBE PRN (21:16)
[2021-01-13 21:28] LABS: Urine Appearance Cloudy; Urine Bilirubin Negative (Negative); Urine Blood Negative (Negative); Urine Color Yellow; Urine Glucose Negative (Negative); Urine Ketones Negative (Negative); Urine Nitrite Positive (Negative); Urine Protein Negative (Negative); Urine Specific Gravity 1.012 (1.002-1.030); Urine Urobilinogen Negative (Negative)
[2021-01-13 21:39] LABS: Urine Bacteria 1+ (Absent); Urine Red Blood Cell 1+(3-5/hpf) (Absent); Urine Squamous Epithelial Cell Present (Absent); Urine White Blood Cell 2+(11-20/hpf) (Absent)
[2021-01-13] MEDS ORDERED: Polyethylene Glycol 3350 17 GM PACKET G TUBE PRN (22:48)
[2021-01-14] MEDS: Enoxaparin 40 MG/0.4 ML SYR SUBCUT SCH ×2 (01:14→21:20)
[2021-01-14] MEDS ORDERED: Lorazepam PYXIS KEY PRN ×2 (05:31→08:34)
[2021-01-14] MEDS: LORazepam 2 mg VIAL 1 ml IV PUSH PRN ×2 (06:38→08:38)
[2021-01-14] MEDS ORDERED: LaCOSAMide VIAL 200 MG in NS 0.9% 50 ML 50 ML IV ONE (08:20)
[2021-01-14] MEDS ORDERED: LORazepam 2 mg VIAL 1 ml IV PUSH ONE (08:34)
[2021-01-14] MEDS: Famotidine SUSP ORALSYR 8 MG/ML FEED TUBE SCH (09:15)
[2021-01-14] MEDS: levETIRAcetam LIQ 500 MG/5 ML UDC PEG TUBE SCH ×2 (09:15→20:29)
[2021-01-14 15:20] LABS: Calcium 9.6 mg/dL (8.6-10.3); EGFR African American 114.6 (>60); EGFR Non-African American 94.7 (>60); Magnesium 2.1 mg/dL (1.9-2.7); Phosphorus 2.8 mg/dL (2.5-5.0); Potassium 3.8 mmol/L (3.5-5.0)
[2021-01-14] MEDS ORDERED: Potassium Chloride LIQUID 20 MEQ/15 ML LIQUID PO ONE (16:01)
[2021-01-14] MEDS: ALFUZOSIN 10 MG PO SCH (17:51)
[2021-01-14] MEDS ORDERED: cefTRIAXone 1 gm/50 mL NS BAG 1 GM/50 ML BAG IV SCH ×2 (21:00)
[2021-01-15 04:29] LABS: ABS Lymphocytes 2.8 10^3/ul (1.0-4.8); ABS Monocytes 0.4 10^3/ul (0-0.8); ABS Neutrophils 2.4 10^3/ul (1.5-7.7); Eosinophil % 0.6 %; Hematocrit 38 % (42-52); Hemoglobin 12.9 g/dL (14.0-18.0); Lymphocyte % 48.4 %; Mean Corpuscular HGB Conc 34 g/dL (31-36); Mean Corpuscular Hemoglobin 32 pg (27-31); Mean Corpuscular Volume 93 fL (80-94); Mean Platelet Volume 6.9 fL (7.4-10.4); Nucleated Red Blood Cells % 0.1; Platelet Count 392 10^3/uL (150-450); Red Blood Count 4.06 10^6 /uL (4.18-5.48); Red Cell Distribution Width 15 % (10-15); White Blood Count 5.7 10^3/uL (3.5-10.8)
[2021-01-15 04:47] LABS: Calcium 9.5 mg/dL (8.6-10.3); EGFR African American 99.5 (>60); EGFR Non-African American 82.2 (>60); Magnesium 2.1 mg/dL (1.9-2.7); Phosphorus 4.1 mg/dL (2.5-5.0)
[2021-01-15] MEDS ORDERED: LaCOSAMide VIAL 100 MG in NS 0.9% 50 ML 50 ML IV SCH (09:00)
[2021-01-15] MEDS: Famotidine SUSP ORALSYR 8 MG/ML FEED TUBE SCH (09:33)
[2021-01-15] MEDS: ALFUZOSIN 10 MG PO SCH (09:33)
[2021-01-15] MEDS: levETIRAcetam LIQ 500 MG/5 ML UDC PEG TUBE SCH (09:33)
[2021-01-15 10:40] VITALS: BP 93/61
[2021-01-16 13:32] LABS: Lamotrigine 8.4 mcg/mL (2.5 - 15.0)
[2021-01-19 13:07] LABS: Levetiracetam 35.8 mcg/mL
== END 2021-01-15 10:14 | disposition home or self-care (01) | DRG 53 ==
LOC: MEDTELE 18:50 → ED 18:50 → MEDTELE 22:37 → ICU 01-14 07:17
PROVIDERS: ADMIT Hospitalist; ATTEND Internal Medicine

== ENCOUNTER 2022-08-05 10:08 | Observation (INO) ==
[2022-08-05] MEDS ORDERED: Lorazepam PYXIS KEY PRN ×3 (10:51→15:38)
[2022-08-05] MEDS ORDERED: Lactated Ringers 1000 ml BAG 1,000 ML IV ONE (10:51)
[2022-08-05] MEDS ORDERED: LORazepam 2 mg VIAL 1 ml IV PUSH ONE ×3 (10:51→15:38)
[2022-08-05] MEDS ORDERED: levETIRAcetam 1000MG IVPREMIX 1,000 MG/100 ML BAG IVPB ONE (11:23)
[2022-08-05 13:08] LABS: Hematocrit 41 % (42-52); Hemoglobin 13.2 g/dL (14.0-18.0); Mean Corpuscular HGB Conc 33 g/dL (31-36); Mean Corpuscular Hemoglobin 31 pg (27-31); Mean Corpuscular Volume 94 fL (80-94); Mean Platelet Volume 8.6 fL (7.4-10.4); Platelet Count 171 10^3/uL (150-450); Red Blood Count 4.33 10^6 /uL (4.18-5.48); Red Cell Distribution Width 14 % (10-15); White Blood Count 17.8 10^3/uL (3.5-10.8)
[2022-08-05 13:31] LABS: Activated Partial Thrombo Time 30.7 seconds (26.0-38.0); INR 1.45 (0.88-1.18)
[2022-08-05 13:44] LABS: Albumin 3.8 g/dL (3.2-5.2); Albumin/Globulin Ratio 1.7 (1-3); C Reactive Protein 63.57 mg/L (<8.01); Calcium 8.7 mg/dL (8.6-10.3); Creatinine, Serum 0.93 mg/dL (0.67-1.17); Globulin 2.2 g/dL (2-4); Total Bilirubin 0.7 mg/dL (0.2-1.0); eGFR CKD-EPI 109.8 (>60)
[2022-08-05 14:15] LABS: Urine Appearance Cloudy; Urine Bilirubin Negative (Negative); Urine Blood Negative (Negative); Urine Color Amber; Urine Glucose Negative (Negative); Urine Ketones Trace (Negative); Urine Nitrite Positive (Negative); Urine Protein Negative (Negative); Urine Specific Gravity 1.013 (1.002-1.030); Urine Urobilinogen Positive (Negative)
[2022-08-05 14:36] LABS: High Sensitivity Troponin 1 Hr 4 pg/mL (<20)
[2022-08-05 14:39] LABS: Urine Bacteria 1+ (Absent); Urine Red Blood Cell Absent (Absent); Urine Squamous Epithelial Cell Present (Absent); Urine White Blood Cell 3+(>20/hpf) (Absent)
[2022-08-05 15:04] LABS: ABS Lymphocytes 1.5 10^3/ul (1.0-4.8); ABS Monocytes 1.8 10^3/ul (0-0.8); ABS Neutrophils 14.5 10^3/ul (1.5-7.7); Eosinophil % 0.1 %; Lymphocyte % 8.6 %
[2022-08-05] MEDS ORDERED: cefTRIAXone 1 gm/50 mL D5W 1 GM/50 ML BAG IV ONE (15:38)
[2022-08-05] MEDS ORDERED: Iohexol 350 (CONTRAST) 500 ML MDV IV ONE (15:51)
[2022-08-05] MEDS ORDERED: levETIRAcetam LIQ 500 MG/5 ML UDC PO ONE (18:37)
[2022-08-05] MEDS ORDERED: LaCOSAMide ORALSYR LIQ 10 MG/ML PO ONE ×2 (18:38→20:00)
[2022-08-05] MEDS ORDERED: [UNRECOGNIZED DRUG - REMARK] INTRANASAL PRN (20:01)
[2022-08-05] MEDS ORDERED: Acetaminophen PED 160 mg/5 ml UDC FEED TUBE PRN (20:01)
[2022-08-05] MEDS ORDERED: Glycerin ADULT 2.4 gm SUPP PR PRN (20:01)
[2022-08-05] MEDS ORDERED: WHITE PETROLATUM TOPICAL SCH (21:00)
[2022-08-05] MEDS ORDERED: Enoxaparin 40 MG/0.4 ML SYR SUBCUT SCH (21:00)
[2022-08-05] MEDS ORDERED: Lactated Ringers 1000 ml BAG 1,000 ML IV SCH (22:00)
[2022-08-06 06:18] LABS: ABS Lymphocytes 1.7 10^3/ul (1.0-4.8); ABS Monocytes 1.4 10^3/ul (0-0.8); ABS Neutrophils 10.1 10^3/ul (1.5-7.7); Eosinophil % 0.2 %; Hematocrit 41 % (42-52); Hemoglobin 13.4 g/dL (14.0-18.0); Lymphocyte % 12.8 %; Mean Corpuscular HGB Conc 33 g/dL (31-36); Mean Corpuscular Hemoglobin 31 pg (27-31); Mean Corpuscular Volume 93 fL (80-94); Mean Platelet Volume 8.3 fL (7.4-10.4); Platelet Count 166 10^3/uL (150-450); Red Blood Count 4.35 10^6 /uL (4.18-5.48); Red Cell Distribution Width 14 % (10-15); White Blood Count 13.2 10^3/uL (3.5-10.8)
[2022-08-06 06:46] LABS: Calcium 8.8 mg/dL (8.6-10.3); Creatinine, Serum 0.82 mg/dL (0.67-1.17); Potassium 4.2 mmol/L (3.5-5.0); eGFR CKD-EPI 117.5 (>60)
[2022-08-06] MEDS ORDERED: LaCOSAMide ORALSYR LIQ 10 MG/ML PO SCH ×2 (09:00→21:00)
[2022-08-06] MEDS ORDERED: Alfuzosin ER 10 mg TAB.ER (NF) 10 MG TAB.ER PO SCH (09:00)
[2022-08-06] MEDS ORDERED: Famotidine SUSP ORALSYR 8 MG/ML FEED TUBE SCH (09:00)
[2022-08-06 13:53] VITALS: BP 119/79
[2022-08-06] MEDS ORDERED: cefTRIAXone 1 gm/50 mL D5W 1 GM/50 ML BAG IV SCH (16:30)
[2022-08-06] MEDS ORDERED: Petroleum Jelly 1.75 Oz (small jar) TOPICAL SCH (21:00)
== END 2022-08-06 14:20 ==
LOC: EDHOLD 10:08 → ED 10:08 → SUATTDRO 19:01 → EDHOLD 08-06 13:51
PROVIDERS: ADMIT Hospitalist; ATTEND Internal Medicine

== ENCOUNTER 2023-06-01 13:26 | Inpatient (IN) ==
[2023-06-01] MEDS ORDERED: Lactated Ringers 1000 ml BAG 1,000 ML IV ONE (14:04)
[2023-06-01 14:21] LABS: ABS Monocytes 0.2 10^3/uL (0.0-1.1); Eosinophil % 0.4 %; Hematocrit 41.1 % (38-53); Hemoglobin 13.9 g/dL (13.2-16.3); Lymphocyte % 18.8 %; Mean Corpuscular Hemoglobin 30.8 pg (27-33); Mean Corpuscular Hgb Conc 33.7 g/dL (31-36); Mean Corpuscular Volume 91.4 fL (80-97); Mean Platelet Volume 7.6 fL (7.5-11.2); Platelet Count 276 10^3/uL (150-450); Red Cell Distribution Width 15.2 % (12-17); White Blood Count 5.1 10^3/uL (3.6-10.2)
[2023-06-01 14:27] LABS: INR 1.16 (0.83-1.13)
[2023-06-01 14:42] LABS: Albumin 4.2 g/dL (3.2-5.2); Albumin/Globulin Ratio 1.4 (1-3); C Reactive Protein 4.17 mg/L (<8.01); Calcium 9.7 mg/dL (8.6-10.3); Creatinine, Serum 0.74 mg/dL (0.67-1.17); Globulin 3.1 g/dL (2-4); Magnesium 1.9 mg/dL (1.9-2.7); Potassium 4.1 mmol/L (3.5-5.0); Total Bilirubin 0.3 mg/dL (0.2-1.0); Total Protein 7.3 g/dL (6.4-8.9); eGFR CKD-EPI 121.2 (>60)
[2023-06-01 14:44] LABS: Urine Appearance Cloudy; Urine Bilirubin Negative (Negative); Urine Blood Negative (Negative); Urine Color Yellow; Urine Glucose Negative (Negative); Urine Ketones Negative (Negative); Urine Nitrite Positive (Negative); Urine Protein Negative (Negative); Urine Specific Gravity 1.006 (1.002-1.030); Urine Urobilinogen Negative (Negative)
[2023-06-01] MEDS ORDERED: cefTRIAXone 2 gm/50 mL D5W 2 GM/50 ML BAG IV ONE (15:33)
[2023-06-01 15:52] LABS: Urine Bacteria 1+ (Absent); Urine Red Blood Cell 2+(6-10/hpf) (Absent); Urine Squamous Epithelial Cell Present (Absent); Urine White Blood Cell 3+(>20/hpf) (Absent)
[2023-06-01] MEDS ORDERED: LORazepam 2 mg VIAL 1 ml ONE ×2 (18:10→18:14)
[2023-06-01] MEDS: LORazepam 2 mg VIAL 1 ml IV PUSH ONE ×2 (18:11→18:12)
[2023-06-01] MEDS ORDERED: LORazepam 2 mg VIAL 1 ml IV PUSH ONE (18:13)
[2023-06-01] MEDS ORDERED: diazePAM INJ CARPUJECT 5 MG/ML SYRINGE ONE (18:18)
[2023-06-01] MEDS ORDERED: FOSPHENYTOIN IVPB ONE (18:25)
[2023-06-01] MEDS ORDERED: NS 0.9% IVPB ONE (18:25)
[2023-06-01] MEDS ORDERED: Rocuronium 50 mg VIAL 10 mg/ml 5 ml VIAL (50 mg) ONE (18:33)
[2023-06-01] MEDS ORDERED: Succinylcholine 200 mg VIAL 20 mg/ml 10 ml VIAL (200 mg) ONE (18:34)
[2023-06-01] MEDS ORDERED: Midazolam 5 mg/5 ml VIAL 1 mg/ml 5 ml VIAL (5 mg) ONE (18:40)
[2023-06-01] MEDS ORDERED: Midazolam 5 mg/5 ml VIAL 1 mg/ml 5 ml VIAL (5 mg) IV SLOW PU ONE (18:42)
[2023-06-01] MEDS ORDERED: Lorazepam PYXIS KEY PRN (18:59)
[2023-06-01] MEDS ORDERED: diazePAM INJ CARPUJECT 5 MG/ML SYRINGE IV ONE (19:00)
[2023-06-01 19:32] LABS: PCO2 Arterial 67 mmHg (35-45); PO2 Arterial 153 mmHg (80-100)
[2023-06-01] MEDS ORDERED: NUTRITIONAL SUPPLEMENTS G TUBE PRN (20:31)
[2023-06-01] MEDS ORDERED: [UNRECOGNIZED DRUG - OTHER] G TUBE SCH (22:06)
[2023-06-01] MEDS: LaCOSAMide ORALSYR LIQ 10 MG/ML PO SCH (23:01)
[2023-06-01] MEDS: D5LR 1000 ml BAG 1,000 ML IV SCH (23:14)
[2023-06-02] MEDS: BRIVARACETAM 10 MG/ML PO SCH ×3 (00:37→20:44)
[2023-06-02 04:28] LABS: ABS Lymphocytes 1.6 10^3/uL (1.0-4.8); ABS Monocytes 0.4 10^3/uL (0.0-1.1); Eosinophil % 0.7 %; Hematocrit 36.3 % (38-53); Hemoglobin 12.1 g/dL (13.2-16.3); Lymphocyte % 26.7 %; Mean Corpuscular Hemoglobin 30.8 pg (27-33); Mean Corpuscular Hgb Conc 33.4 g/dL (31-36); Mean Platelet Volume 7.7 fL (7.5-11.2); Platelet Count 234 10^3/uL (150-450); Red Blood Count 3.95 10^6/uL (4.06-5.63); Red Cell Distribution Width 15.6 % (12-17)
[2023-06-02 04:49] LABS: Calcium 8.9 mg/dL (8.6-10.3); Creatinine, Serum 0.76 mg/dL (0.67-1.17); Potassium 3.8 mmol/L (3.5-5.0); eGFR CKD-EPI 119.5 (>60)
[2023-06-02] MEDS: Enoxaparin 40 MG/0.4 ML SYR SUBCUT SCH (05:02)
[2023-06-02] MEDS: D5LR 1000 ml BAG 1,000 ML IV SCH (07:50)
[2023-06-02] MEDS ORDERED: NF: Alfuzosin ER 10 mg TAB.ER (NF) 10 MG TAB.ER PO SCH (09:00)
[2023-06-02] MEDS ORDERED: [UNRECOGNIZED DRUG - OTHER] PO SCH (09:00)
[2023-06-02] MEDS ORDERED: CloBAZam 10 mg TAB (NF) PO SCH (09:00)
[2023-06-02] MEDS: LaCOSAMide ORALSYR LIQ 10 MG/ML PO SCH ×2 (09:00→20:44)
[2023-06-02] MEDS: CMCS:Alfuzosin ER 10 mg TAB.ER (NF) 10 MG TAB.ER PO SCH (09:03)
[2023-06-02] MEDS: cefTRIAXone 1 gm/50 mL D5W 1 GM/50 ML BAG IV SCH (15:08)
[2023-06-02] MEDS ORDERED: [UNRECOGNIZED DRUG - OTHER] G TUBE SCH (21:00)
[2023-06-03 03:46] LABS: ABS Eosinophils 0.1 10^3/uL (0.0-0.5); ABS Lymphocytes 1.3 10^3/uL (1.0-4.8); ABS Monocytes 0.3 10^3/uL (0.0-1.1); ABS Neutrophils 2.8 10^3/uL (1.5-7.6); Eosinophil % 1.7 %; Hemoglobin 12.3 g/dL (13.2-16.3); Lymphocyte % 29.2 %; Mean Corpuscular Hemoglobin 30.6 pg (27-33); Mean Corpuscular Hgb Conc 33.3 g/dL (31-36); Mean Platelet Volume 7.7 fL (7.5-11.2); Platelet Count 237 10^3/uL (150-450); Red Blood Count 4.03 10^6/uL (4.06-5.63); Red Cell Distribution Width 15.3 % (12-17); White Blood Count 4.5 10^3/uL (3.6-10.2)
[2023-06-03] MEDS: Enoxaparin 40 MG/0.4 ML SYR SUBCUT SCH (04:02)
[2023-06-03 04:09] LABS: Calcium 8.9 mg/dL (8.6-10.3); Creatinine, Serum 0.73 mg/dL (0.67-1.17); Potassium 3.5 mmol/L (3.5-5.0); eGFR CKD-EPI 120.9 (>60)
[2023-06-03] MEDS: LaCOSAMide ORALSYR LIQ 10 MG/ML PO SCH (09:00)
[2023-06-03] MEDS: CMCS:Alfuzosin ER 10 mg TAB.ER (NF) 10 MG TAB.ER PO SCH (09:00)
[2023-06-03] MEDS: BRIVARACETAM 10 MG/ML PO SCH (09:00)
[2023-06-03] MEDS: cefTRIAXone 1 gm/50 mL D5W 1 GM/50 ML BAG IV SCH (14:44)
[2023-06-03 16:02] VITALS: BP 93/63
== END 2023-06-03 16:30 | disposition home or self-care (01) | DRG 463 ==
LOC: ED 13:26 → ICU 18:01 → EDHOLD 19:46 → ICU 20:56
PROVIDERS: ADMIT Internal Medicine; ATTEND Internal Medicine

== ENCOUNTER 2023-10-21 18:52 | Observation (INO) ==
[2023-10-21 20:06] LABS: ABS Lymphocytes 1.7 10^3/uL (1.0-4.8); ABS Monocytes 0.5 10^3/uL (0.0-1.1); ABS Neutrophils 3.4 10^3/uL (1.5-7.6); ABS Nucleated RBC 0.01 10^3/ul; Eosinophil % 0.5 %; Hematocrit 41.9 % (38-53); Mean Corpuscular Hemoglobin 31.6 pg (27-33); Mean Corpuscular Hgb Conc 33.5 g/dL (31-36); Mean Corpuscular Volume 94.4 fL (80-97); Mean Platelet Volume 8.4 fL (7.5-11.2); Nucleated Red Blood Cells % 0.1 %/100WBC (0.0-0.8); Platelet Count 196 10^3/uL (150-450); Red Blood Count 4.44 10^6/uL (4.06-5.63); Red Cell Distribution Width 14.5 % (12-17); White Blood Count 5.6 10^3/uL (3.6-10.2)
[2023-10-21 20:41] LABS: Albumin 4.1 g/dL (3.2-5.2); Albumin/Globulin Ratio 1.5 (1-3); Calcium 9.6 mg/dL (8.6-10.3); Creatinine, Serum 0.85 mg/dL (0.67-1.17); Globulin 2.8 g/dL (2-4); Magnesium 1.9 mg/dL (1.9-2.7); Potassium 4.9 mmol/L (3.5-5.0); Total Bilirubin 0.2 mg/dL (0.2-1.0); Total Protein 6.9 g/dL (6.4-8.9); eGFR CKD-EPI 115.5 (>60)
[2023-10-21] MEDS: Heparin 5000 UNITS/ML 1 mL VIAL SUBCUT SCH (22:47)
[2023-10-21] MEDS: BRIVARACETAM 10 MG/ML G TUBE ONE (22:47)
[2023-10-21] MEDS: LaCOSAMide ORALSYR LIQ 10 MG/ML G TUBE ONE (22:47)
[2023-10-21 22:59] LABS: Urine Appearance Extra Turbid; Urine Bilirubin Negative (Negative); Urine Blood Negative (Negative); Urine Color Yellow; Urine Glucose Negative (Negative); Urine Ketones Negative (Negative); Urine Nitrite 2+ (Negative); Urine Protein Trace (Negative); Urine Specific Gravity 1.023 (1.002-1.030); Urine Urobilinogen Negative (Negative)
[2023-10-21 23:19] LABS: Urine Bacteria 1+ /HPF (Absent); Urine Red Blood Cell Absent /HPF (0-Trace); Urine Squamous Epithelial Cell Present /HPF (Absent); Urine White Blood Cell 3+(>20/hpf) /HPF (0-Trace)
[2023-10-21] MEDS ORDERED: Glycerin ADULT 2.4 gm SUPP PR PRN (23:33)
[2023-10-21] MEDS ORDERED: Acetaminophen PED 160 mg/5 ml UDC FEED TUBE PRN (23:34)
[2023-10-21] MEDS ORDERED: EPINEPHrine Anaphylaxis SYR CERTADOSE SYR KIT IM PRN (23:38)
[2023-10-21] MEDS ORDERED: Metronidazole (TOPICAL)(NF) 45 GM TUBE TOPICAL SCH (23:45)
[2023-10-22] MEDS ORDERED: Clotrimazole 1% CREAM 30 gm TOPICAL PRN (01:04)
[2023-10-22] MEDS ORDERED: Polyethylene Glycol 3350 17 GM PACKET G TUBE PRN (01:05)
[2023-10-22] MEDS ORDERED: Sodium Phosphate ADULT ENEMA 133 ML BTL PR PRN (01:08)
[2023-10-22] MEDS: FLUORIDE DT SCH (01:28)
[2023-10-22] MEDS: CANNABIDIOL 100 MG/ML SCH (01:32)
[2023-10-22] MEDS: Lactated Ringers 1000 ml BAG 1,000 ML IV ONE (01:32)
[2023-10-22] MEDS ORDERED: LORazepam 2 mg VIAL 1 ml IV PUSH PRN (01:34)
[2023-10-22] MEDS ORDERED: Lorazepam PYXIS KEY PRN (01:34)
[2023-10-22] MEDS ORDERED: Midazolam 2 mg/2 ml VIAL 1 mg/ml 2 ml VIAL (2 mg) ONE (04:21)
[2023-10-22] MEDS ORDERED: LORazepam 2 MG/ML 1 mL Syringe IM PRN (05:11)
[2023-10-22] MEDS: cefTRIAXone 1 gm/50 mL D5W 1 GM/50 ML BAG IV SCH (05:23)
[2023-10-22 05:42] LABS: ABS Lymphocytes 2.8 10^3/uL (1.0-4.8); ABS Monocytes 0.5 10^3/uL (0.0-1.1); ABS Neutrophils 2.3 10^3/uL (1.5-7.6); ABS Nucleated RBC 0.01 10^3/ul; Eosinophil % 0.9 %; Hematocrit 42.6 % (38-53); Hemoglobin 14.2 g/dL (13.2-16.3); Lymphocyte % 49.6 %; Mean Corpuscular Hemoglobin 31.4 pg (27-33); Mean Corpuscular Hgb Conc 33.3 g/dL (31-36); Mean Corpuscular Volume 94.3 fL (80-97); Mean Platelet Volume 8.4 fL (7.5-11.2); Nucleated Red Blood Cells % 0.1 %/100WBC (0.0-0.8); Platelet Count 217 10^3/uL (150-450); Red Blood Count 4.51 10^6/uL (4.06-5.63); Red Cell Distribution Width 14.5 % (12-17); White Blood Count 5.6 10^3/uL (3.6-10.2)
[2023-10-22 06:16] LABS: Calcium 9.5 mg/dL (8.6-10.3); Creatinine, Serum 0.76 mg/dL (0.67-1.17); Potassium 3.5 mmol/L (3.5-5.0); eGFR CKD-EPI 119.5 (>60)
[2023-10-22] MEDS: BRIVARACETAM 10 MG/ML PO SCH (10:12)
[2023-10-22] MEDS: LaCOSAMide ORALSYR LIQ 10 MG/ML G TUBE SCH (10:13)
[2023-10-22 14:03] VITALS: BP 106/72
== END 2023-10-22 14:04 ==
LOC: ED 18:52 → EDHOLD 18:52 → SUATTDRO 21:12 → EDHOLD 10-22 14:03
PROVIDERS: ADMIT Internal Medicine; ATTEND Hospitalist

== ENCOUNTER 2024-06-07 15:46 | Observation (INO) ==
[2024-06-07] MEDS ORDERED: Lorazepam PYXIS KEY PRN ×2 (16:08→18:02)
[2024-06-07 16:18] LABS: ABS Lymphocytes 1.8 10^3/uL (1.0-4.8); ABS Monocytes 0.9 10^3/uL (0.0-1.1); ABS Neutrophils 7.9 10^3/uL (1.5-7.6); ABS Nucleated RBC 0.01 10^3/ul; Eosinophil % 0.1 %; Hematocrit 42.8 % (38-53); Hemoglobin 14.6 g/dL (13.2-16.3); Lymphocyte % 16.9 %; Mean Corpuscular Hemoglobin 31.2 pg (27-33); Mean Corpuscular Volume 91.8 fL (80-97); Mean Platelet Volume 8.4 fL (7.5-11.2); Nucleated Red Blood Cells % 0.1 %/100WBC (0.0-0.8); Platelet Count 215 10^3/uL (150-450); Red Blood Count 4.66 10^6/uL (4.06-5.63); Red Cell Distribution Width 14.5 % (12-17); White Blood Count 10.6 10^3/uL (3.6-10.2)
[2024-06-07] MEDS: LORazepam 2 mg VIAL 1 ml IV PUSH ONE (16:18)
[2024-06-07 17:08] LABS: ALT 32 U/L (7-52); Albumin 4.6 g/dL (3.2-5.2); Albumin/Globulin Ratio 1.7 (1-3); Alkaline Phosphatase 120 U/L (35-149); Anion Gap 8 mmol/L (2-16); Blood Urea Nitrogen 13 mg/dL (6-24); CO2 Carbon Dioxide 27 mmol/L (22-32); Calcium 9.8 mg/dL (8.6-10.3); Chloride 100 mmol/L (101-111); Creatinine, Serum 0.95 mg/dL (0.67-1.17); Globulin 2.7 g/dL (2-4); Glucose 91 mg/dL (70-100); Sodium 135 mmol/L (135-145); Total Bilirubin 0.5 mg/dL (0.2-1.0); Total Protein 7.3 g/dL (6.4-8.9); eGFR CKD-EPI 105.7 (>60)
[2024-06-07] MEDS ORDERED: LORazepam 2 mg VIAL 1 ml IV PUSH PRN (18:02)
[2024-06-07 18:53] LABS: Urine Appearance Turbid; Urine Bilirubin Negative (Negative); Urine Blood Negative (Negative); Urine Color Light-Yellow; Urine Glucose Negative (Negative); Urine Ketones Negative (Negative); Urine Nitrite Negative (Negative); Urine Protein Negative (Negative); Urine Specific Gravity 1.012 (1.002-1.030); Urine Urobilinogen Negative (Negative)
[2024-06-07] MEDS ORDERED: Acetaminophen PED 160 mg/5 ml UDC FEED TUBE PRN (19:00)
[2024-06-07] MEDS ORDERED: Ibuprofen PED LIQ 100 MG/5 ML UDC FEED TUBE PRN (19:00)
[2024-06-07] MEDS ORDERED: [UNRECOGNIZED DRUG - OTHER] TOPICAL PRN (19:00)
[2024-06-07] MEDS ORDERED: [UNRECOGNIZED DRUG - REMARK] INTRANASAL PRN (19:00)
[2024-06-07] MEDS ORDERED: Sodium Phosphate ADULT ENEMA 133 ML BTL PR PRN (19:00)
[2024-06-07 19:02] LABS: Magnesium 1.8 mg/dL (1.9-2.7); Potassium Redraw 4.3 mmol/L (3.5-5.0)
[2024-06-07 19:05] LABS: Urine Bacteria 1+ /HPF (Absent); Urine Red Blood Cell Trace(0-2/hpf) /HPF (0-Trace); Urine Squamous Epithelial Cell Present /HPF (Absent); Urine White Blood Cell 3+(>20/hpf) /HPF (0-Trace)
[2024-06-07] MEDS ORDERED: Clotrimazole 1% CREAM 30 gm TOPICAL PRN (19:39)
[2024-06-07] MEDS ORDERED: Polyethylene Glycol 3350 17 GM PACKET PO PRN (19:42)
[2024-06-07] MEDS: Lactated Ringers 1000 ml BAG 1,000 ML IV ONE (19:45)
[2024-06-07] MEDS ORDERED: Dextran 70/Hypromellose Tears Eye Drops 15 ml BTL (for Artificials Tears) BOTH EYES PRN (19:51)
[2024-06-07] MEDS ORDERED: EPINEPHrine Anaphylaxis SYR CERTADOSE SYR KIT IM PRN (20:47)
[2024-06-07] MEDS: BRIVARACETAM 10 MG/ML PO SCH (21:28)
[2024-06-07] MEDS: LaCOSAMide ORALSYR LIQ 10 MG/ML G TUBE SCH (21:29)
[2024-06-07] MEDS: CANNABIDIOL 100 MG/ML PO SCH (21:29)
[2024-06-07] MEDS: WHITE PETROLATUM TOPICAL SCH (23:03)
[2024-06-07] MEDS: Heparin 5000 UNITS/ML 1 mL VIAL SUBCUT SCH (23:09)
[2024-06-08] MEDS: Multivitamins ADULT w/MIN LIQ 15 ML UDC PO SCH (09:24)
[2024-06-08] MEDS: CANNABIDIOL 100 MG/ML PO SCH (09:25)
[2024-06-08] MEDS: cefTRIAXone 1 gm/50 mL D5W 1 GM/50 ML BAG IV SCH (09:39)
[2024-06-08] MEDS: CMCS:Alfuzosin ER 10 mg TAB.ER (NF) 10 MG TAB.ER PO SCH (10:29)
[2024-06-08] MEDS: DAPSONE TOPICAL SCH (10:29)
[2024-06-08] MEDS: FLUORIDE PO SCH (10:30)
[2024-06-08] MEDS: Magnesium Sulfate IV 1GM/100ML 1 GM/100 ML BAG IV ONE (12:33)
[2024-06-08 13:51] VITALS: BP 113/77
[2024-06-08] MEDS ORDERED: Petrolatum 5 gm PACKET TOPICAL SCH (21:00)
== END 2024-06-08 14:23 | disposition home or self-care (01) ==
LOC: EDHOLD 15:46 → ED 15:46 → MEDTELE 21:29
PROVIDERS: ADMIT Hospitalist; ATTEND Hospitalist